=== PATIENT | female | born 1945 | race Caucasian/White ===

== ENCOUNTER → 2018-06-28 10:37 | Outpatient (CLI) | payer MEDICARE, SELFPAY ==
--- NOTE | 2018-06-28 10:46 | NVE_ITS ---
Venous Exam Indications: 729.5 Pain in limb. IMPRESSIONS 1. There is no evidence of significant Reflux. 2. No evidence of deep or superficial vein thrombosis involving the right lower extremity History: Medications: Aspirin, 81 mg PO daily. Right lower extremity venous duplex evaluation. Doppler flow study including spectral analysis, color and howe scale imaging. Location: Vascular laboratory. Patient status: Outpatient. Tables: Venous flow and imaging: + +-------+ + Location Overall Flow properties + +-------+ + Right common femoral Patent Normal phasicity; spontaneous; normal augmentation; compressible + +-------+ + Right saphenofemoral junction Patent Compressible + +-------+ + Right profunda femoral Patent Compressible + +-------+ + Right femoral Patent Normal phasicity; spontaneous; normal augmentation; compressible + +-------+ + Right greater saphenous Patent Normal phasicity; spontaneous; normal augmentation; compressible + +-------+ + Right popliteal Patent Normal phasicity; spontaneous; normal augmentation; compressible + +-------+ + Right posterior tibial Patent Compressible + +-------+ + Right peroneal Patent Compressible + +-------+ + Right gastrocnemius Patent Compressible + +-------+ + Right soleal Patent Compressible + +-------+ + (Report amended ) Electronically signed by: Manuel Nice [id number]
== END ==
PROVIDERS: PCP Internal Medicine; Visit Provider Internal Medicine
DX: R60.1 Generalized edema (principal); M79.604 Pain in right leg
CPT/HCPCS: 93971

== ENCOUNTER → 2018-07-12 10:56 | Outpatient (CLI) | payer MEDICARE, SELFPAY ==
--- NOTE | 2018-07-12 11:01 | NVE_ITS ---
Venous Exam Indications: 729.5 Pain in limb. 729.81 Swelling of limb. IMPRESSIONS 1. There is no evidence of significant Reflux. 2. No evidence of deep or superficial vein thrombosis involving the right lower extremity 3. No evidence of deep or superficial vein thrombosis involving the left lower extremity Complete lower extremity venous duplex evaluation. Doppler flow study including spectral analysis, color and howe scale imaging. Location: Vascular laboratory. Patient status: Outpatient. CRITICAL FINDINGS - Reported to: PETER - Read back and verified. - 07/12/18 - 1130 - NONE Tables: Venous flow and imaging: + +-------+ + Location Overall Flow properties + +-------+ + Right common femoral Patent Normal phasicity; spontaneous; normal augmentation; compressible + +-------+ + Right saphenofemoral junction Patent Compressible + +-------+ + Right profunda femoral Patent Compressible + +-------+ + Right femoral Patent Normal phasicity; spontaneous; normal augmentation; compressible; no reflux + +-------+ + Right greater saphenous Patent Normal phasicity; spontaneous; normal augmentation; compressible + +-------+ + Right popliteal Patent Normal phasicity; spontaneous; normal augmentation; compressible + +-------+ + Right posterior tibial Patent Compressible + +-------+ + Right peroneal Patent Compressible + +-------+ + Right gastrocnemius Patent Compressible + +-------+ + Right soleal Patent Compressible + +-------+ + Left common femoral Patent Normal phasicity; spontaneous; normal augmentation; compressible + +-------+ + Left saphenofemoral junction Patent Compressible + +-------+ + Left profunda femoral Patent Compressible + +-------+ + Left femoral Patent Normal phasicity; spontaneous; normal augmentation; compressible + +-------+ + Left greater saphenous Patent Normal phasicity; spontaneous; normal augmenta
== END ==
PROVIDERS: PCP Internal Medicine; Visit Provider Internal Medicine
DX: M79.604 Pain in right leg (principal); M79.89 Other specified soft tissue disorders; M79.605 Pain in left leg
CPT/HCPCS: 93970

== ENCOUNTER 2018-09-30 12:03 | Observation (INO) | payer MEDICARE, SELFPAY ==
[2018-09-30] VITALS (13 sets, daily range): BP systolic 104–156; BP diastolic 49–88; PULSE 53–113; RESP 15–22; TEMP 36.5–36.9; O2SAT 92–98; BMI 41.2
--- NOTE | 2018-09-30 12:42 | XR_ITS ---
XR chest portable HISTORY: Chest pain and pressure with irregular heartbeat, previous smoker ITS.REASON: chest pain ORDERING PHYSICIAN: Topher Jackson MD PATIENT AGE: 73 years COMPARISON: None FINDINGS: Unremarkable cardiovascular structures. There is COPD. Increased density is present in the left lung base laterally possibly due to pericardial fat pad. Cannot exclude underlying pleural or parenchymal pathology. Upright PA and lateral chest may be of further value. No acute bony findings IMPRESSION: COPD with patchy density in the left lung base which could be due to summation artifact versus pleural or parenchymal opacification
--- NOTE | 2018-09-30 12:48 | PC.NURSE ---
1248-gave pt 5mg cardizem hr 112 94% RA 13 RR and 157/82 1251-gave pt 5mg cardizem hr 110 94% RA 17 RR 164/90 1253-gave pt 5mg cardizem hr 135 95% RA 17 RR 131/101
--- NOTE | 2018-09-30 12:49 | HMH.EDGENADL ---
ED Disposition Clinical Impression: Paroxysmal SVT (supraventricular tachycardia) Disposition: Admitted as Observation Condition on Discharge: Good Referrals: Fortino Jackson [Primary Care Provider] - Time of Disposition: 14:43 - Critical Care Critical Care Time: No Attestation: On 09/30/18, the high probability of a clinically significant, sudden or life threatening deterioration of the following system(s) required my full and direct attention, intervention and personal management. The time I documented below is in addition to time spent performing reported procedures but includes the following listed in this critical care notation. Medical Decision Making - Medical Records Medical records reviewed: Yes: I reviewed the patient's medical records. - Konrad Inquiry Pt receiving controlled substance: No Konrad was queried for this patient: No Vital Signs: 09/30/18 12:05 09/30/18 13:15 09/30/18 13:30 Temperature 98.5 F Temperature Source Oral Pulse Rate [Right Brachial] 113 H 81 75 Respiratory Rate 20 15 20 Blood Pressure [Right Arm] 156/88 H 131/69 134/59 L Blood Pressure Mean [Right Arm] 110 89 84 Blood Pressure Source [Right Arm] Automatic Cuff Blood Pressure Position [Right Arm] Sitting 02 Sat by Pulse Oximetry 95 95 92 L Oxygen Delivery Method Room Air Room Air Room Air 09/30/18 13:53 09/30/18 14:00 Temperature Temperature Source Pulse Rate [Right Brachial] 71 61 Respiratory Rate 20 20 Blood Pressure [Right Arm] 115/63 128/64 Blood Pressure Mean [Right Arm] 80 85 Blood Pressure Source [Right Arm] Automatic Cuff Blood Pressure Position [Right Arm] Sitting 02 Sat by Pulse Oximetry 93 L 93 L Oxygen Delivery Method Room Air Room Air - Lab Data Lab Results 09/30/18 12:20: WBC 7.6, RBC 4.57, Hgb 14.6, Hct 42.8, MCV 93.8, MCH 31.9 H, MCHC 34.0, RDW 12.9, Plt Count 236, MPV 6.8 L, Neut % (Auto) 61.0, Lymph % (Auto) 28.9, [place] % (Auto) 6.0, Eos % (Auto) 3.2, Baso % (Auto) 1.0, Neut # (Auto) 4.6, Lymph # (Auto) 2.2, [place] # (Auto) 0.5, Eos # (Auto) 0.2, Baso # (Auto) 0.1 09/30/18 12:20: Sodium 142, Potassium 3.2 L, Chloride 103, Carbon Dioxide 33 H, Anion Gap 9.2, BUN 19 H, Creatinine 1.22 H, Estimated Creat Clear 60, Estimated GFR 43 L, Est GFR ( Amer) 52 L, Glucose 109 H, Calcium 9.3, Total Bilirubin 0.4, AST 14 L, ALT 19, Alkaline Phosphatase 86, Troponin I < 0.02, Total Protein 7.5, Albumin 3.4, Globulin 4.1 H, Albumin/Globulin Ratio 0.8 L, TSH 1.02 Result diagrams: 09/30/18 12:20 09/30/18 12:20 Orders (Tests/Meds): ED MEDICATIONS Generic Name Dose Route Start Last Admin Trade Name Freq PRN Reason Stop Dose Admin Fentanyl Citrate 25 mcg 09/30/18 14:38 Fentanyl 250mcg/5ml Vial IV 10/01/18 14:38 Q3MINP PRN Moderate to Severe Pain Fentanyl Citrate 50 mcg 09/30/18 14:38 Fentanyl 250mcg/5ml Vial IV 10/01/18 14:38 Q3MINP PRN Moderate to Severe Pain Flumazenil 0.2 mg 09/30/18 14:38 Romazicon 0.1mg/Ml 5ml Vial IV 09/30/18 23:00 NEEDED PRN Sedation Diltiazem HCl 125 mg/ Sodium 125 mls @ 5 mls/hr 09/30/18 13:00 09/30/18 13:21 Chloride IV 10/30/18 12:59 5 mls/hr .Q25H YANCI Administration Protocol 5 MG/HR Midazolam HCl 1 mg 09/30/18 14:38 Midazolam 2mg/2ml Vial IV 10/01/18 14:38 Q3MINP PRN Sedation Midazolam HCl 1 mg 09/30/18 14:38 Midazolam 1mg/Ml 5ml Vial IV 10/01/18 14:38 Q3MINP PRN Sedation Naloxone HCl 0.4 mg 09/30/18 14:38 Narcan 0.4mg/Ml Vial IV 10/01/18 14:38 Q5MINP PRN Decreased respirations Potassium Chloride 40 meq 09/30/18 15:00 Klor-Con 20meq Tablet PO 10/30/18 14:59 BID YANCI Sodium Chloride 10 ml 09/30/18 14:38 Saline Flush 10ml Syringe
--- NOTE | 2018-09-30 12:53 | ED_ITS ---
ED Disposition Clinical Impression: Paroxysmal SVT (supraventricular tachycardia) Disposition: Admitted as Observation Condition on Discharge: Good Referrals: Fortino Jackson [Primary Care Provider] - Time of Disposition: 14:43 - Critical Care Critical Care Time: No Attestation: On 09/30/18, the high probability of a clinically significant, sudden or life threatening deterioration of the following system(s) required my full and direct attention, intervention and personal management. The time I documented below is in addition to time spent performing reported procedures but includes the following listed in this critical care notation. Medical Decision Making - Medical Records Medical records reviewed: Yes: I reviewed the patient's medical records. - Kornad Inquiry Pt receiving controlled substance: No Konrad was queried for this patient: No Vital Signs: 09/30/18 12:05 09/30/18 13:15 09/30/18 13:30 Temperature 98.5 F Temperature Source Oral Pulse Rate [Right Brachial] 113 H 81 75 Respiratory Rate 20 15 20 Blood Pressure [Right Arm] 156/88 H 131/69 134/59 L Blood Pressure Mean [Right Arm] 110 89 84 Blood Pressure Source [Right Arm] Automatic Cuff Blood Pressure Position [Right Arm] Sitting 02 Sat by Pulse Oximetry 95 95 92 L Oxygen Delivery Method Room Air Room Air Room Air 09/30/18 13:53 09/30/18 14:00 Temperature Temperature Source Pulse Rate [Right Brachial] 71 61 Respiratory Rate 20 20 Blood Pressure [Right Arm] 115/63 128/64 Blood Pressure Mean [Right Arm] 80 85 Blood Pressure Source [Right Arm] Automatic Cuff Blood Pressure Position [Right Arm] Sitting 02 Sat by Pulse Oximetry 93 L 93 L Oxygen Delivery Method Room Air Room Air - Lab Data Lab Results 09/30/18 12:20: WBC 7.6, RBC 4.57, Hgb 14.6, Hct 42.8, MCV 93.8, MCH 31.9 H, MCHC 34.0, RDW 12.9, Plt Count 236, MPV 6.8 L, Neut % (Auto) 61.0, Lymph % (Auto) 28.9, [place] % (Auto) 6.0, Eos % (Auto) 3.2, Baso % (Auto) 1.0, Neut # (Auto) 4.6, Lymph # (Auto) 2.2, [place] # (Auto) 0.5, Eos # (Auto) 0.2, Baso # (Auto) 0.1 09/30/18 12:20: Sodium 142, Potassium 3.2 L, Chloride 103, Carbon Dioxide 33 H, Anion Gap 9.2, BUN 19 H, Creatinine 1.22 H, Estimated Creat Clear 60, Estimated GFR 43 L, Est GFR ( Amer) 52 L, Glucose 109 H, Calcium 9.3, Total Bilirubin 0.4, AST 14 L, ALT 19, Alkaline Phosphatase 86, Troponin I < 0.02, Total Protein 7.5, Albumin 3.4, Globulin 4.1 H, Albumin/Globulin Ratio 0.8 L, TSH 1.02 Result diagrams: 09/30/18 12:20 09/30/18 12:20 Orders (Tests/Meds): ED MEDICATIONS Generic Name Dose Route Start Last Admin Trade Name Freq PRN Reason Stop Dose Admin Fentanyl Citrate 25 mcg 09/30/18 14:38 Fentanyl 250mcg/5ml Vial IV 10/01/18 14:38 Q3MINP PRN Moderate to Severe Pain Fentanyl Citrate 50 mcg 09/30/18 14:38 Fentanyl 250mcg/5ml Vial IV 10/01/18 14:38 Q3MINP PRN Moderate to Severe Pain Flumazenil 0.2 mg 09/30/18 14:38 Romazicon 0.1mg/Ml 5ml Vial IV 09/30/18 23:00
[2018-09-30 13:01] LABS: Basophils # 0.1 K/mm3 (0-0.2); Eosinophils # 0.2 K/mm3 (0.0-0.4); Eosinophils % 3.2 % (0.1-12.0); Hematocrit 42.8 % (37.0-47.0); Hemoglobin 14.6 g/dL (12.2-16.2); Lymphocytes # 2.2 K/mm3 (0.7-4.5); Lymphocytes % 28.9 % (10-50); Mean Corpuscular Hemoglobin 31.9 pg (27.0-31.2); Mean Corpuscular Volume 93.8 fl (81-99); Mean Platelet Volume 6.8 fl (7.4-10.4); Monocytes # 0.5 K/mm3 (0.1-1.0); Neutrophils # 4.6 K/mm3 (1.8-7.8); Platelet Count 236 K/mm3 (142-424); Red Blood Count 4.57 M/mm3 (4.20-5.40); Red Cell Distribution Width 12.9 % (11.5-17.5); White Blood Count 7.6 K/mm3 (4.8-10.8)
--- NOTE | 2018-09-30 13:21 | PC.NURSE ---
132jerod spoke with sheri jones cardiology.
[2018-09-30 13:26] LABS: Alanine Aminotransferase 19 U/L (12-78); Albumin Level 3.4 gm/dL (3.4-5.0); Albumin/Globulin Ratio 0.8 (1.1-1.8); Alkaline Phosphatase 86 U/L (46-116); Anion Gap 9.2 mEq/L (5-15); Aspartate Amino Transferase 14 U/L (15-37); Bilirubin,Total 0.4 mg/dL (0.2-1.0); Blood Urea Nitrogen 19 mg/dL (7-18); Calcium 9.3 mg/dL (8.5-10.1); Carbon Dioxide 33 mmol/L (21.0-32.0); Chloride 103 mmol/L (98-107); Creatinine Clearance Estimated 60 mL/min (50-200); Creatinine,Serum 1.22 mg/dL (0.55-1.02); Estimated Glomerular Filt Rate 43 ml/min (>60); GFR (African American) 52 ML/MIN (>60); Globulin 4.1 gm/dl (1.3-3.2); Glucose 109 mg/dL (74-106); Potassium 3.2 mmoL/L (3.5-5.1); Sodium 142 mmol/L (136-145); Thyroid Stimulating Hormone 1.02 uIU/ml (0.358-3.740); Total Protein,Serum 7.5 gm/dL (6.4-8.2); Troponin I < 0.02 ng/ml (0.00-0.06)
--- NOTE | 2018-09-30 13:57 | PC.NURSE ---
1355-tabitha wade at pt bedside.
--- NOTE | 2018-09-30 14:11 | HMH.CNCARD ---
History of Present Illness Consult date: 09/30/18 Chief complaint: Lightheadedness, palpitations Additional Medical History:: 1. Tobacco use starting age 16 and stopped approximately age 60, smoked 3-4 packs/day A. COPD 2. Hypertension 3. Hyperlipidemia 4. Family history of coronary artery disease in her father with heart attack at age 48 5. Remote history of DVT of the right lower extremity 6. CKD stage 3 with Cr 1.2 and GFR 43 History of present illness: 73-year-old white female came to the emergency department for complaint of slow heart rate in the 40s this a.m while in bed. Further questioning reveals episodes of chest pressure and lightheadedness for the last couple of weeks. Patient denies chest pain or syncope. She also notes occasions of tachycardia which telemetry revealed during ER visit today to be episodes of SVT. Patient was started on IV Cardizem with regulation of the SVT and no recurrence of significant bradycardia. Initial troponin normal. TSH noted to be normal. Cardiology consulted for evaluation recommendations. EKGs show sinus rhythm with left axis deviation and pulmonary disease pattern. No acute ST segment changes noted. Patient relates a remote history of stress approximately 10 years ago with no need for intervention at the time. She denies any history of diabetes. She was not on any rate controlling medications (calcium channel blockers or beta blockers) prior to this ER visit. [facility] History Medical History: Denies:: Cancer, Diabetes Mellitus Type 1, Diabetes Mellitus Type 2, Internal Pacemaker, MRSA *Have you ever received a pneumonia vaccine?: No *Have you received a flu vaccine this season?: Yes Other Surgeries: No: Pacemaker Amputation: No Fractures: No - *Social History Educational Level: Attended High School Smoking Status: Former smoker Tobacco Type: cigarettes Alcohol Intake: never *Occupational Status:: unemployed Household Members: children *Travel in the last 8 weeks: None - Psychiatric History Expresses thoughts of harming self/others: None Suicide Plan Description: No Plan Pschychiatric History:: Denies:: Anxiety, Attention Deficit Disorder, Bipolar Disorder, Depression, Eating Disorder, Post Traumatic Stress Disorder, Suicide Attempt, Psychiatric Treatment, Schizophrenia Family Hx:: Coronary Artery Disease Meds Home Medications Medication Instructions Recorded Confirmed Type Albuterol Sulfate [Albuterol HFA 1 puff IH Q4HP PRN 09/30/18 09/30/18 History Inhaler] Aspirin 81 mg PO DAILY 09/30/18 09/30/18 History Furosemide [Furosemide 40MG tAB] 40 mg PO DAILY 09/30/18 09/30/18 History Losartan Potassium 100 mg PO DAILY 09/30/18 09/30/18 History Potassium Chloride [Klor-con 20 20 meq PO DAILY 09/30/18 09/30/18 History mEq tablet] hydroCHLOROthiazide [HCTZ 25mg 25 mg PO DAILY 09/30/18 09/30/18 History tab] Allergies Allergy/AdvReac Type Severity Reaction Status Date / Time Penicillins Allergy Verified 09/30/18 12:59 Sulfa (Sulfonamide Allergy Verified 09/30/18 12:59 Antibiotics) Review of Systems - *Cardiovascular Reports chest pain, Reports chest pain at rest, Reports shortness of breath - *Respiratory Reports shortness of breath - *Gastrointestinal Denies abdominal pain, Denies loose stools - *Genitourinary Denies blood in urine - *Musculoskeletal Denies joint pain, Denies back pain - *Neurologic Denies fainting, Denies tingling, Denies tremor(s) Exam Vital signs and Labs for Last 24 Hours: Temp Pulse Resp BP Pulse Ox 98.5 F 61 20 128/64 93 L 09/30/18 12:05 09/30/18 14:00 09/30/18 14:00 09/30/18 14:00 09/30/18 14:00 Laboratory Results - last 24 hr 09/30/18 12:20: WBC 7.6, RBC 4.57, Hgb 14.6, Hct 42.8, MCV 93.8, MCH 31.9 H, MCHC 34.0, RDW 12.9, Plt Count 236, MPV 6.8 L, Neut % (Auto) 61.0, Lymph % (Auto) 28.9, [place] % (Auto) 6.0, Eos % (Auto) 3.2, Baso % (Auto) 1.0, Neut # (Auto)
--- NOTE | 2018-09-30 14:17 | P.CONS_ITS ---
History of Present Illness Consult date: 09/30/18 Chief complaint: Lightheadedness, palpitations Additional Medical History:: 1. Tobacco use starting age 16 and stopped approximately age 60, smoked 3-4 packs/day A. COPD 2. Hypertension 3. Hyperlipidemia 4. Family history of coronary artery disease in her father with heart attack at age 48 5. Remote history of DVT of the right lower extremity 6. CKD stage 3 with Cr 1.2 and GFR 43 History of present illness: 73-year-old white female came to the emergency department for complaint of slow heart rate in the 40s this a.m while in bed. Further questioning reveals episodes of chest pressure and lightheadedness for the last couple of weeks. Patient denies chest pain or syncope. She also notes occasions of tachycardia which telemetry revealed during ER visit today to be episodes of SVT. Patient was started on IV Cardizem with regulation of the SVT and no recurrence of significant bradycardia. Initial troponin normal. TSH noted to be normal. Cardiology consulted for evaluation recommendations. EKGs show sinus rhythm with left axis deviation and pulmonary disease pattern. No acute ST segment changes noted. Patient relates a remote history of stress approximately 10 years ago with no need for intervention at the time. She denies any history of diabetes. She was not on any rate controlling medications (calcium channel blockers or beta blockers) prior to this ER visit. [facility] History Medical History: Denies:: Cancer, Diabetes Mellitus Type 1, Diabetes Mellitus Type 2, Internal Pacemaker, MRSA *Have you ever received a pneumonia vaccine?: No *Have you received a flu vaccine this season?: Yes Other Surgeries: No: Pacemaker Amputation: No Fractures: No - *Social History Educational Level: Attended High School Smoking Status: Former smoker Tobacco Type: cigarettes Alcohol Intake: never *Occupational Status:: unemployed Household Members: children *Travel in the last 8 weeks: None - Psychiatric History Expresses thoughts of harming self/others: None Suicide Plan Description: No Plan Pschychiatric History:: Denies:: Anxiety, Attention Deficit Disorder, Bipolar Disorder, Depression, Eating Disorder, Post Traumatic Stress Disorder, Suicide Attempt, Psychiatric Treatment, Schizophrenia Family Hx:: Coronary Artery Disease Meds Home Medications Medication Instructions Recorded Confirmed Type Albuterol Sulfate [Albuterol HFA 1 puff IH Q4HP PRN 09/30/18 09/30/18 History Inhaler] Aspirin 81 mg PO DAILY 09/30/18 09/30/18 History Furosemide [Furosemide 40MG tAB] 40 mg PO DAILY 09/30/18 09/30/18 History Losartan Potassium 100 mg PO DAILY 09/30/18 09/30/18 History Potassium Chloride [Klor-con 20 20 meq PO DAILY 09/30/18 09/30/18 History mEq tablet] hydroCHLOROthiazide [HCTZ 25mg 25 mg PO DAILY 09/30/18 09/30/18 History tab] Allergies Allergy/AdvReac Type Severity Reaction Status Date / Time Penicillins Allergy Verified 09/30/18 12:59 Sulfa (Sulfonamide Allergy Verified 09/30/18 12:59 Antibiotics) Review of Systems - *Cardiovascular Reports chest pain, Reports chest pain at rest, Reports shortness of breath - *Respiratory Reports shortness of breath - *Gastrointestinal Denies abdominal pain, Denies loose stools - *Genitourinary Denies blood in urine
--- NOTE | 2018-09-30 14:31 | CA_ITS ---
PROCEDURE: 2-D M-mode and color Doppler study INDICATIONS FOR THE TEST: Chest pain X COPD Heart Murmur Tobacco SmokingEX Palpitations Fatigue Syncope Edema HypertensionXDiabetes Mellitus Rheumatic Fever SOB IVERSON ObesityXHyperlipidemiaX Family History HDX Additional History SVT PATIENT INFORMATION HEIGHT: 59 WEIGHT:204 GENDER: Female B/P:128/64 2-D/M-MODE INTERPRETATION: 2-D MEASUREMENTS OBSERVED VALUES IN CMS Right Ventricular Dimension (RVDd) 2.2 Interventricular Septum (Thickness)(IVsd) .7 Left Ventricular Internal Dimensions(LVIDd) 5.6 Left Ventricular Posterior Wall (Thickness)(LVPWd) 1.0 Aortic Root 3.6 Aortic Cusp Separation 1.9 Left Atrial Dimensions (LAD) 2.5 2D 1. Technically difficult study because of the patient's factor and poor acoustic windows. 2. Left atrium is mildly enlarged, left ventricle is normal size, mild concentric left ventricular hypertrophy, visually estimated ejection fraction 50%, there appears to be mild hypokinesis involving the inferior wall. 3. The right atrium and right ventricle are mildly enlarged with normal contractility. 4. The aortic valve is thickened and calcified leaflet continue to display mobility. 5. The mitral and tricuspid valve leaflets are minimally thickened. 6. The pulmonic valve is poorly visualized. 7. No significant pericardial effusion noted. DOPPLER INTERROGATION: Doppler interrogation of the aortic, mitral and tricuspid valvular presence of mild mitral and tricuspid regurgitation, tricuspid regurgitation jet velocity is inadequate for calculation of the right ventricular systolic pressure, grade 1 diastolic dysfunction seen with tissue Doppler evidence of raised left atrial pressure. CONCLUSION: 1. Technically difficult study because of the patient's factors and poor acoustic windows 2. Mild biatrial enlargement, normal left ventricular size, mild concentric left ventricular hypertrophy, visually estimated ejection fraction 50%, there appears to be mild inferior wall hypokinesis. 3. Mildly enlarged right ventricle with normal contractility. 4. Mild mitral and tricuspid regurgitation. 5. Grade 1 diastolic dysfunction seen with tissue Doppler evidence of raised left atrial pressure. 6. No significant pericardial effusion noted.
[2018-09-30 14:43] LABS: Magnesium 1.5 mg/dL (1.4-2.2)
--- NOTE | 2018-09-30 14:57 | PC.NURSE ---
1456-spoke with erik nathan care management stated pt would be acute.
--- NOTE | 2018-09-30 14:57 | PC.NURSE ---
1442- on phone with avila guerra to admit pt.
--- NOTE | 2018-09-30 14:59 | PC.NURSE ---
called HS for bed, states pt will go to room 216
--- NOTE | 2018-09-30 15:32 | HMH.PHAINT ---
POTASSIUM--VERIFIED WITH DR. STARKEY, POTASSIUM DOSE NEEDS TO BE 40 MEQ BID ONLY.
--- NOTE | 2018-09-30 16:12 | HMH.HP ---
*Admission Date: 09/30/18 *Chief complaint: bradycardia, dizziness *History of present illness: 73-year-old white female came to the emergency department for complaint of slow heart rate in the 40s this a.m while in bed. Further questioning reveals episodes of chest pressure and lightheadedness for the last couple of weeks. Patient denies chest pain or syncope. She also notes occasions of tachycardia which telemetry revealed during ER visit today to be episodes of SVT. Patient was started on IV Cardizem with regulation of the SVT and no recurrence of significant bradycardia. Initial troponin normal. TSH noted to be normal. Cardiology consulted for evaluation recommendations. EKGs show sinus rhythm with left axis deviation and pulmonary disease pattern. No acute ST segment changes noted. Patient relates a remote history of stress approximately 10 years ago with no need for intervention at the time. She denies any history of diabetes. She was not on any rate controlling medications (calcium channel blockers or beta blockers) prior to this ER visit. Above per Cardiology TONO Cho, greatly appreciated. [facility] History I have reviewed the patient's past medical history: Yes Medical History: Reports:: Hypertension Denies:: Anxiety, Cancer, Depression, Diabetes Mellitus Type 1, Diabetes Mellitus Type 2, Internal Pacemaker, MRSA *Have you ever received a pneumonia vaccine?: No (Refused) *Have you received a flu vaccine this season?: Yes Other Medical History: Reports: Arthritis (rheumatoid), Cataracts (bilat eyes), Sinus Problems Other Surgeries: Yes: Colonoscopy, , EGD, Hysterectomy-Total, Other (cysts removed from bilat feet). No: Pacemaker Amputation: No Fractures: Yes (fracture wrist) - *Social History Educational Level: Attended High School Smoking Status: Former smoker Tobacco Type: cigarettes # Packs/Day (cigarettes): 1 #Yrs smoked (if former smoker): 57 Alcohol Intake: never *Occupational Status:: retired Housing: house Household Members: none *Travel in the last 8 weeks: None - Psychiatric History Expresses thoughts of harming self/others: None Suicide Plan Description: No Plan Pschychiatric History:: Denies:: Anxiety, Attention Deficit Disorder, Bipolar Disorder, Depression, Eating Disorder, Post Traumatic Stress Disorder, Suicide Attempt, Psychiatric Treatment, Schizophrenia Family Hx:: Cancer, Coronary Artery Disease, Heart Attack, Hyperlipidemia, Hypertension, Stroke Review of Systems - Review of Systems Review of systems:: pertinent systems reviewed and negative unless documented below - *Cardiovascular Reports chest pain, Reports lightheadedness, Reports fast heart rate, Reports slow heart rate Comments: chest heaviness - *Respiratory Reports shortness of breath with activity - *Neurologic Denies fainting, Denies tingling, Denies tremor(s) Meds Home Medications Medication Instructions Recorded Confirmed Type Acetaminophen 650 mg PO BID 09/30/18 09/30/18 History Albuterol Sulfate [Albuterol HFA 1 puff IH Q4HP PRN 09/30/18 09/30/18 History Inhaler] Aspirin 81 mg PO DAILY 09/30/18 09/30/18 History Furosemide [Furosemide 40MG tAB] 40 mg PO DAILY 09/30/18 09/30/18 History Losartan Potassium 100 mg PO DAILY 09/30/18 09/30/18 History Potassium Chloride [Klor-con 20 20 meq PO DAILY 09/30/18 09/30/18 History mEq tablet] hydroCHLOROthiazide [HCTZ 25mg 25 mg PO DAILY 09/30/18 09/30/18 History tab] Allergies Allergy/AdvReac Type Severity Reaction Status Date / Time Penicillins Allergy Verified 09/30/18 12:59 Sulfa (Sulfonamide Allergy Verified 09/30/18 12:59 Antibiotics) Exam Vital signs and Labs for Last 24 Hours: Temp Pulse Resp BP Pulse Ox 97.8 F 53 L 16 148/73 H 98 09/30/18 15:39 09/30/18 15:39 09/30/18 15:39 09/30/18 15:39 09/30/18 15:39 Laboratory Results - last 24 hr 09/30/18 12:20: WBC 7.6, RBC 4.57, Hgb 14.6, Hct 42.8, MCV 93.
--- NOTE | 2018-09-30 16:17 | P.HP_ITS ---
*Admission Date: 09/30/18 *Chief complaint: bradycardia, dizziness *History of present illness: 73-year-old white female came to the emergency department for complaint of slow heart rate in the 40s this a.m while in bed. Further questioning reveals episodes of chest pressure and lightheadedness for the last couple of weeks. Patient denies chest pain or syncope. She also notes occasions of tachycardia which telemetry revealed during ER visit today to be episodes of SVT. Patient was started on IV Cardizem with regulation of the SVT and no recurrence of significant bradycardia. Initial troponin normal. TSH noted to be normal. Cardiology consulted for evaluation recommendations. EKGs show sinus rhythm with left axis deviation and pulmonary disease pattern. No acute ST segment changes noted. Patient relates a remote history of stress approximately 10 years ago with no need for intervention at the time. She denies any history of diabetes. She was not on any rate controlling medications (calcium channel blockers or beta blockers) prior to this ER visit. Above per Cardiology TONO Cho, greatly appreciated. [facility] History I have reviewed the patient's past medical history: Yes Medical History: Reports:: Hypertension Denies:: Anxiety, Cancer, Depression, Diabetes Mellitus Type 1, Diabetes Mellitus Type 2, Internal Pacemaker, MRSA *Have you ever received a pneumonia vaccine?: No (Refused) *Have you received a flu vaccine this season?: Yes Other Medical History: Reports: Arthritis (rheumatoid), Cataracts (bilat eyes), Sinus Problems Other Surgeries: Yes: Colonoscopy, , EGD, Hysterectomy-Total, Other (cysts removed from bilat feet). No: Pacemaker Amputation: No Fractures: Yes (fracture wrist) - *Social History Educational Level: Attended High School Smoking Status: Former smoker Tobacco Type: cigarettes # Packs/Day (cigarettes): 1 #Yrs smoked (if former smoker): 57 Alcohol Intake: never *Occupational Status:: retired Housing: house Household Members: none *Travel in the last 8 weeks: None - Psychiatric History Expresses thoughts of harming self/others: None Suicide Plan Description: No Plan Pschychiatric History:: Denies:: Anxiety, Attention Deficit Disorder, Bipolar Disorder, Depression, Eating Disorder, Post Traumatic Stress Disorder, Suicide Attempt, Psychiatric Treatment, Schizophrenia Family Hx:: Cancer, Coronary Artery Disease, Heart Attack, Hyperlipidemia, Hypertension, Stroke Review of Systems - Review of Systems Review of systems:: pertinent systems reviewed and negative unless documented below - *Cardiovascular Reports chest pain, Reports lightheadedness, Reports fast heart rate, Reports slow heart rate Comments: chest heaviness - *Respiratory Reports shortness of breath with activity - *Neurologic Denies fainting, Denies tingling, Denies tremor(s) Meds Home Medications Medication Instructions Recorded Confirmed Type Acetaminophen 650 mg PO BID 09/30/18 09/30/18 History Albuterol Sulfate [Albuterol HFA 1 puff IH Q4HP PRN 09/30/18 09/30/18 History Inhaler] Aspirin 81 mg PO DAILY 09/30/18 09/30/18 History Furosemide [Furosemide 40MG tAB] 40 mg PO DAILY 09/30/18 09/30/18 History Losartan Potassium 100 mg PO DAILY 09/30/18 09/30/18 History Potassium Chloride [Klor-con 20 20 meq PO DAILY 09/30/18 09/30/18 History mEq tablet] hydroCHLOROthiazide [HCTZ 25mg 25 mg PO DAILY 09/30/18 09/30/18 History tab]
--- NOTE | 2018-09-30 18:04 | PC.NURSE ---
Collaborated with Dr Rae via telephone. SULAIMAN Samuels. Request pt to transfer to acute med/surg bed with telemetry as pt has IBS with multiple BMs per day. Order received to transfer pt to acute med/surg bed.
--- NOTE | 2018-09-30 18:26 | PC.NURSE ---
PT admited from ED. Jacob alcantar D/C'ed, switched to PO Q6. Pt transfered from stepdown to acute care M/S. Resting in chair, will continue to monitor.
[2018-09-30 19:00] LABS: Troponin I < 0.02 ng/ml (0.00-0.06)
--- NOTE | 2018-09-30 19:01 | PC.NURSE ---
Report given to S Call RN
--- NOTE | 2018-09-30 20:15 | PC.NURSE ---
PT AWAKE IN BED. HR 53.
--- NOTE | 2018-09-30 20:42 | PC.NURSE ---
2015 pt is alert and talking with nurse HR 53
--- NOTE | 2018-09-30 20:45 | PC.NURSE ---
PT IN SHOWER.
--- NOTE | 2018-09-30 20:47 | PC.NURSE ---
2030 PT UP IN BR WITH NURSING STAFF .HR 53
--- NOTE | 2018-09-30 21:05 | PC.NURSE ---
2100 HR 62 SITTING UP IN CHAIR .NO C/O
--- NOTE | 2018-09-30 21:15 | PC.NURSE ---
PT AWAKE. NO COMPLAINTS REPORTED. HR 58.
--- NOTE | 2018-09-30 21:30 | PC.NURSE ---
PT AWAKE. HR 57. NO COMPLAINTS REPORTED.
[2018-09-30 21:39] LABS: Troponin I < 0.02 ng/ml (0.00-0.06)
--- NOTE | 2018-09-30 21:45 | PC.NURSE ---
HR 54. PT AWAKE.
--- NOTE | 2018-09-30 22:00 | PC.NURSE ---
PT AWAKE. HR 55. NO PAIN/DISCOMFORT REPORTED.
--- NOTE | 2018-09-30 22:15 | PC.NURSE ---
PT AWAKE IN CHAIR, WATCHING TV. STATES SHE SLEEPS IN CHAIR AT HOME. NO COMPLAINTS. HR 55.
--- NOTE | 2018-09-30 22:30 | PC.NURSE ---
PT AWAKE IN CHAIR, WATCHING TV WITH DAUGHTER. NO COMPLAINTS. HR 60.
--- NOTE | 2018-09-30 22:45 | PC.NURSE ---
PT AWAKE IN CHAIR. NO COMPLAINTS. HR 58.
[2018-10-01] VITALS (16 sets, daily range): BP systolic 88–123; BP diastolic 38–78; PULSE 50–83; RESP 16–20; TEMP 36.4–36.8; O2SAT 90–100
--- NOTE | 2018-10-01 | IR_ITS ---
CARDIAC CATHETERIZATION DATE OF CATHETERIZATION:10/01/2018 12:17 PM PROCEDURES: 1. Left heart catheterization 2. Left ventriculogram 3. Selective coronary angiogram INDICATION FOR TEST: 1. Unstable angina Informed consent was obtained prior to the procedure. COMPLICATIONS: None ESTIMATED BLOOD LOSS: Less than 10 ml. TECHNIQUE: One percent lidocaine used to anesthetize the right anterior aspect of the wrist. The right radial artery was accessed via the Seldinger technique. A 6 Macedonian sheath was placed in the right radial artery. 2.5 mg of verapamil, 800 mcg of nitroglycerin, 1mg Lidocaine and 5000 U Heparin were given through the arterial sheath. The trap catheter was also used to perform left heart catheterization, left ventriculogram and selective coronary angiogram. At the end of the procedure the sheath was removed good hemostasis was achieved using Traclet band, patient was transferred to the postop holding area in stable condition . ANGIOGRAPHIC RESULTS: 1. The left main artery normal 2. The left anterior descending artery has proximal 10% stenoses 3. The circumflex artery nondominant yet still large with a mild proximal 10% stenosis 4. The right coronary artery is a dominant vessel with mild 10% mid vessel stenoses 5. The MARTÍNEZ ventriculogram reveals hyperdynamic 75% 6. The left ventricular end-diastolic pressure 20 mmHg IMPRESSION: 1. Mild nonflow limiting coronary disease 2. Hyperdynamic ventricle consistent with diastolic dysfunction and or hypertensive heart disease 3. Elevated LVEDP consistent with diastolic dysfunction and or hypertensive heart disease PLAN: 1. Medical management for coronary disease 2. Treatment of hypertension for diastolic dysfunction 3. Standard therapy for paroxysmal atrial fibrillation
--- NOTE | 2018-10-01 02:10 | PC.NURSE ---
She is currently NPO for a heart cath. She denies any SOA, dizziness, weakness, chest pain, or chest pressure. She states her appetite is normal and states he last BM was on 09/30. She states it is normal for her to have 5-6 stools a day r/t IBS. She has been awake sitting in the chair and is currently sleeping in the chair. She refuses TEDS.
[2018-10-01 06:37] LABS: Basophils % 0.4 % (0.1-2.0); Eosinophils # 0.2 K/mm3 (0.0-0.4); Hematocrit 39.5 % (37.0-47.0); Lymphocytes # 1.7 K/mm3 (0.7-4.5); Lymphocytes % 25.7 % (10-50); Mean Corpuscular HGB Conc 32.6 g/dL (31.8-35.4); Mean Corpuscular Hemoglobin 30.6 pg (27.0-31.2); Mean Platelet Volume 6.7 fl (7.4-10.4); Monocytes # 0.4 K/mm3 (0.1-1.0); Monocytes % 6.7 % (1.7-9.3); Neutrophils # 4.2 K/mm3 (1.8-7.8); Neutrophils % 64.3 % (37.0-80.0); Platelet Count 221 K/mm3 (142-424); Red Cell Distribution Width 12.9 % (11.5-17.5); White Blood Count 6.5 K/mm3 (4.8-10.8)
[2018-10-01 06:40] LABS: Anion Gap 12.4 mEq/L (5-15); Blood Urea Nitrogen 21 mg/dL (7-18); Calcium 8.9 mg/dL (8.5-10.1); Carbon Dioxide 31 mmol/L (21.0-32.0); Chloride 102 mmol/L (98-107); Creatinine Clearance Estimated 65 mL/min (50-200); Creatinine,Serum 1.12 mg/dL (0.55-1.02); Estimated Glomerular Filt Rate 48 ml/min (>60); GFR (African American) 58 ML/MIN (>60); Glucose 98 mg/dL (74-106); Potassium 3.4 mmoL/L (3.5-5.1); Sodium 142 mmol/L (136-145)
--- NOTE | 2018-10-01 07:12 | PC.NURSE ---
Report given to Sugar Sosa RN.
--- NOTE | 2018-10-01 07:25 | HMH.ACPN2 ---
Internal Medicine - PN: Subj *Date: 10/01/18 *Time: 07:25 Interval history: Patient did well overnight with no further episodes of SVT. Heart rate controlled with oral diltiazem 30 mg every 6 hrs. Remains afebrile, hemodynamically stable. Cardiology still planning to take patient for heart cath today to look for underlying pathology that may be affecting her arrhythmia. Exam Vital signs and Labs for Last 24 Hours: Temp Pulse Resp BP Pulse Ox 97.5 F L 70 18 121/56 L 93 L 10/01/18 04:00 10/01/18 04:00 10/01/18 04:00 10/01/18 04:00 10/01/18 04:00 Laboratory Results - last 24 hr 09/30/18 12:20: WBC 7.6, RBC 4.57, Hgb 14.6, Hct 42.8, MCV 93.8, MCH 31.9 H, MCHC 34.0, RDW 12.9, Plt Count 236, MPV 6.8 L, Neut % (Auto) 61.0, Lymph % (Auto) 28.9, [place] % (Auto) 6.0, Eos % (Auto) 3.2, Baso % (Auto) 1.0, Neut # (Auto) 4.6, Lymph # (Auto) 2.2, [place] # (Auto) 0.5, Eos # (Auto) 0.2, Baso # (Auto) 0.1 09/30/18 12:20: Sodium 142, Potassium 3.2 L, Chloride 103, Carbon Dioxide 33 H, Anion Gap 9.2, BUN 19 H, Creatinine 1.22 H, Estimated Creat Clear 60, Estimated GFR 43 L, Est GFR ( Amer) 52 L, Glucose 109 H, Calcium 9.3, Total Bilirubin 0.4, AST 14 L, ALT 19, Alkaline Phosphatase 86, Troponin I < 0.02, Total Protein 7.5, Albumin 3.4, Globulin 4.1 H, Albumin/Globulin Ratio 0.8 L, TSH 1.02 09/30/18 12:20: Magnesium 1.5 09/30/18 18:14: Troponin I < 0.02 09/30/18 21:09: Troponin I < 0.02 10/01/18 05:20: WBC 6.5, RBC 4.20, Hgb 13.0 D, Hct 39.5, MCV 94.0, MCH 30.6, MCHC 32.6, RDW 12.9, Plt Count 221, MPV 6.7 L, Neut % (Auto) 64.3, Lymph % (Auto) 25.7, [place] % (Auto) 6.7, Eos % (Auto) 3.0, Baso % (Auto) 0.4, Neut # (Auto) 4.2, Lymph # (Auto) 1.7, Ness # (Auto) 0.4, Eos # (Auto) 0.2, Baso # (Auto) 0.0 10/01/18 05:20: Sodium 142, Potassium 3.4 L, Chloride 102, Carbon Dioxide 31, Anion Gap 12.4, BUN 21 H, Creatinine 1.12 H, Estimated Creat Clear 65, Estimated GFR 48 L, Est GFR ( Amer) 58 L, Glucose 98, Calcium 8.9 I & O for Last 24 hours: Intake & Output 09/28/18 09/29/18 09/30/18 10/01/18 23:59 23:59 23:59 23:59 Intake Total 380 / 380 Output Total 200 / 200 Balance 180 / 180 10 / 10 Weight 92.578 kg Narrative: Alert and oriented x3 Rate and rhythm regular, Bradycardia, No murmur Lung sounds clear and equal. No JVD. No LE edema. No carotid bruits Abdomen soft and nontender. ENT exam unremarkable. Skin pink, warm and dry. No neuro deficits. Assessment and Plan (1) Paroxysmal SVT (supraventricular tachycardia) Current visit: Yes Status: Acute Category: Medical Code(s): I47.1 - Supraventricular tachycardia (2) Hypertension Current visit: Yes Status: Acute Category: Medical Code(s): I10 - Essential (primary) hypertension (3) Chest pressure Current visit: Yes Status: Acute Category: Medical Code(s): R07.89 - Other chest pain (4) Lightheadedness Current visit: Yes Status: Acute Category: Medical Code(s): R42 - Dizziness and giddiness (5) COPD (chronic obstructive pulmonary disease) Current visit: Yes Status: Acute Category: Medical Code(s): J44.9 - Chronic obstructive pulmonary disease, unspecified (6) Ex-smoker for more than 1 year Current visit: Yes Status: Acute Category: Social Hx Code(s): Z87.891 - Personal history of nicotine dependence (7) Hyperlipidemia Current visit: Yes Status: Acute Category: Medical Code(s): E78.5 - Hyperlipidemia, unspecified (8) Morbid obesity with BMI of 40.0-44.9, adult Current visit: Yes Status: Acute Category: Medical Code(s): E66.01 - Morbid (severe) obesity due to excess calories; Z68.41 - Body mass index (BMI) 40.0-44.9, adult (9) CKD (chronic kidney disease) stage 3, GFR 30-59 ml/min Current visit: Yes Status: Acute Category: Medical Code(s): N18.3 - Chronic kidney disease, stage 3 (moderate) (10) Hypokalemia Current visit: Yes Status: Acute Category: Medical Code(s): E8
--- NOTE | 2018-10-01 07:28 | P.PN_ITS ---
Internal Medicine - PN: Subj *Date: 10/01/18 *Time: 07:25 Interval history: Patient did well overnight with no further episodes of SVT. Heart rate controlled with oral diltiazem 30 mg every 6 hrs. Remains afebrile, hemodynamically stable. Cardiology still planning to take patient for heart c ath today to look for underlying pathology that may be affecting her arrhythmia. Exam Vital signs and Labs for Last 24 Hours: Temp Pulse Resp BP Pulse Ox 97.5 F L 70 18 121/56 L 93 L 10/01/18 04:00 10/01/18 04:00 10/01/18 04:00 10/01/18 04:00 10/01/18 04:00 Laboratory Results - last 24 hr 09/30/18 12:20: WBC 7.6, RBC 4.57, Hgb 14.6, Hct 42.8, MCV 93.8, MCH 31.9 H, MCHC 34.0, RDW 12.9, Plt Count 236, MPV 6.8 L, Neut % (Auto) 61.0, Lymph % (Auto) 28.9, [place] % (Auto) 6.0, Eos % (Auto) 3.2, Baso % (Auto) 1.0, Neut # (Auto) 4.6, Lymph # (Auto) 2.2, [place] # (Auto) 0.5, Eos # (Auto) 0.2, Baso # (Auto) 0.1 09/30/18 12:20: Sodium 142, Potassium 3.2 L, Chloride 103, Carbon Dioxide 33 H, Anion Gap 9.2, BUN 19 H, Creatinine 1.22 H, Estimated Creat Clear 60, Estimated GFR 43 L, Est GFR ( Amer) 52 L, Glucose 109 H, Calcium 9.3, Total Bilirubin 0.4, AST 14 L, ALT 19, Alkaline Phosphatase 86, Troponin I < 0.02, Total Protein 7.5, Albumin 3.4, Globulin 4.1 H, Albumin/Globulin Ratio 0.8 L, TSH 1.02 09/30/18 12:20: Magnesium 1.5 09/30/18 18:14: Troponin I < 0.02 09/30/18 21:09: Troponin I < 0.02 10/01/18 05:20: WBC 6.5, RBC 4.20, Hgb 13.0 D, Hct 39.5, MCV 94.0, MCH 30.6, MCHC 32.6, RDW 12.9, Plt Count 221, MPV 6.7 L, Neut % (Auto) 64.3, Lymph % (Auto) 25.7, [place] % (Auto) 6.7, Eos % (Auto) 3.0, Baso % (Auto) 0.4, Neut # (Auto) 4.2, Lymph # (Auto) 1.7, [place] # (Auto) 0.4, Eos # (Auto) 0.2, Baso # (Auto) 0.0 10/01/18 05:20: Sodium 142, Potassium 3.4 L, Chloride 102, Carbon Dioxide 31, Anion Gap 12.4, BUN 21 H, Creatinine 1.12 H, Estimated Creat Clear 65, Estimated GFR 48 L, Est GFR ( Amer) 58 L, Glucose 98, Calcium 8.9 I & O for Last 24 hours: Intake & Output 09/28/18 09/29/18 09/30/18 10/01/18 23:59 23:59 23:59 23:59 Intake Total 380 / 380 10 10 Output Total 200 / 200 Balance 180 / 180 10 / 10 Weight 92.578 kg Narrative: Alert and oriented x3 Rate and rhythm regular, Bradycardia, No murmur Lung sounds clear and equal. No JVD. No LE edema. No carotid bruits Abdomen soft and nontender. ENT exam unremarkable. Skin pink, warm and dry. No neuro deficits. Assessment and Plan (1) Paroxysmal SVT (supraventricular tachycardia) Current visit: Yes Status: Acute Category: Medical Code(s): I47.1 - Supraventricular tachycardia (2) Hypertension Current visit: Yes Status: Acute Category: Medical Code(s): I10 - Essential (primary) hypertension (3) Chest pressure Current visit: Yes Status: Acute Category: Medical Code(s): R07.89 - Other chest pain (4) Lightheadedness Current visit: Yes Status: Acute Category: Medical Code(s): R42 - Dizziness and giddiness (5) COPD (chronic obstructive pulmonary disease) Current visit: Yes Status: Acute Category: Medical Code(s): J44.9 - Chronic obstructive pulmonary disease, unspecified (6) Ex-smoker for more than 1 year Current visit: Yes Status: Acute Category: Social Hx Code(s): Z87.891 - Personal history of nicotine dependence (7) Hyperlipidemia Current visit: Yes Status: Acute Category: Medical
--- NOTE | 2018-10-01 08:34 | HMH.DCSUM ---
General - General Admission date:: 09/30/18 Discharge date: 10/01/18 HPI HPI: 73-year-old white female came to the emergency department for complaint of slow heart rate in the 40s this a.m while in bed. Further questioning reveals episodes of chest pressure and lightheadedness for the last couple of weeks. Patient denies chest pain or syncope. She also notes occasions of tachycardia which telemetry revealed during ER visit today to be episodes of SVT. Patient was started on IV Cardizem with regulation of the SVT and no recurrence of significant bradycardia. Initial troponin normal. TSH noted to be normal. Cardiology consulted for evaluation recommendations. EKGs show sinus rhythm with left axis deviation and pulmonary disease pattern. No acute ST segment changes noted. Patient relates a remote history of stress approximately 10 years ago with no need for intervention at the time. She denies any history of diabetes. She was not on any rate controlling medications (calcium channel blockers or beta blockers) prior to this ER visit. Above per Cardiology TONO Cho, greatly appreciated. Hospital Course Hospital Course: Admitted for arrythmia and concern for ACS equivalent. Initiated on Cardiazem IV. Had significant response with rate controlled after a few hours. Transitioned to PO diltiazem 30mg q6hrs. Maintained normal rate and rhythm. Due to concern for cardiovascular disease as etiology for arrythmia, patient taken for left heart cath. Tolerated procedure well with no significant blockages noted. No stents placed. As patient's rate was controlled and she had no further episodes, she was stable for DC home. PLan to follow-up with PCP in the coming week. Remained afebrile, without CP, SOA, confusion, N/V. Objective Vital signs: Temp Pulse Resp BP Pulse Ox 98.0 F 57 L 20 107/78 L 94 L 10/01/18 08:00 10/01/18 08:00 10/01/18 08:00 10/01/18 08:00 10/01/18 08:00 Narrative: - *Routine HEENT Exam Head: Present: normocephalic Eye: Present: EOMI, PERRL ENT: Present: mucous membranes moist - *Routine Respiratory Exam Present: CTA bilaterally. Absent: accessory muscle use, rales, rhonchi, wheezes - *Routine Cardiovascular Exam Present: RRR. Absent: murmur, gallop, rubs - *Routine Extremities Exam Absent: edema, calf tenderness Right wrist with trochar insertion site. CDI, no bleeding or bruit. - *Routine Neurological Exam Present: alert, oriented X3, moving all extremities Results Labs on day of discharge: Labs from last 24 hours 10/01/18 10/01/18 09/30/18 05:20 05:20 21:09 WBC 6.5 RBC 4.20 Hgb 13.0 D Hct 39.5 MCV 94.0 MCH 30.6 MCHC 32.6 RDW 12.9 Plt Count 221 MPV 6.7 L Neut % (Auto) 64.3 Lymph % (Auto) 25.7 [place] % (Auto) 6.7 Eos % (Auto) 3.0 Baso % (Auto) 0.4 Neut # (Auto) 4.2 Lymph # (Auto) 1.7 [place] # (Auto) 0.4 Eos # (Auto) 0.2 Baso # (Auto) 0.0 Sodium 142 Potassium 3.4 L Chloride 102 Carbon Dioxide 31 Anion Gap 12.4 BUN 21 H Creatinine 1.12 H Estimated Creat Clear 65 Estimated GFR 48 L Est GFR ( Amer) 58 L Glucose 98 Calcium 8.9 Magnesium Total Bilirubin AST ALT Alkaline Phosphatase Troponin I < 0.02 Total Protein Albumin Globulin Albumin/Globulin Ratio TSH 09/30/18 09/30/18 09/30/18 18:14 12:20 12:20 WBC RBC Hgb Hct MCV MCH MCHC RDW Plt Count MPV Neut % (Auto) Lymph % (Auto) [place] % (Auto) Eos % (Auto) Baso % (Auto) Neut # (Auto) Lymph # (Auto) [place] # (Auto) Eos # (Auto) Baso # (Auto) Sodium 142 Potassium 3.2 L Chloride 103 Carbon Dioxide 33 H Anion Gap 9.2 BUN 19 H Creatinine 1.22 H Estimated Creat Clear 60 Estimated GFR 43 L Est GFR ( Amer) 52 L Glucose 109 H Calcium 9.3 Magnesi
--- NOTE | 2018-10-01 08:56 | HMH.PNCARD ---
Subjective Date: 10/01/18 Time: 08:56 Principal diagnosis: lightheadedness, chest pressure, SVT Interval history: 73-year-old white female in bedside chair in no acute distress. No complaints overnight. Patient did tolerate Cardizem. Telemetry reveals no further episodes of SVT or significant bradycardia. All questions answered regarding cardiac cath today. Exam Vital signs and Labs for Last 24 Hours: Temp Pulse Resp BP Pulse Ox 98.0 F 57 L 20 107/78 L 94 L 10/01/18 08:00 10/01/18 08:00 10/01/18 08:00 10/01/18 08:00 10/01/18 08:00 Laboratory Results - last 24 hr 09/30/18 12:20: WBC 7.6, RBC 4.57, Hgb 14.6, Hct 42.8, MCV 93.8, MCH 31.9 H, MCHC 34.0, RDW 12.9, Plt Count 236, MPV 6.8 L, Neut % (Auto) 61.0, Lymph % (Auto) 28.9, [place] % (Auto) 6.0, Eos % (Auto) 3.2, Baso % (Auto) 1.0, Neut # (Auto) 4.6, Lymph # (Auto) 2.2, [place] # (Auto) 0.5, Eos # (Auto) 0.2, Baso # (Auto) 0.1 09/30/18 12:20: Sodium 142, Potassium 3.2 L, Chloride 103, Carbon Dioxide 33 H, Anion Gap 9.2, BUN 19 H, Creatinine 1.22 H, Estimated Creat Clear 60, Estimated GFR 43 L, Est GFR ( Amer) 52 L, Glucose 109 H, Calcium 9.3, Total Bilirubin 0.4, AST 14 L, ALT 19, Alkaline Phosphatase 86, Troponin I < 0.02, Total Protein 7.5, Albumin 3.4, Globulin 4.1 H, Albumin/Globulin Ratio 0.8 L, TSH 1.02 09/30/18 12:20: Magnesium 1.5 09/30/18 18:14: Troponin I < 0.02 09/30/18 21:09: Troponin I < 0.02 10/01/18 05:20: WBC 6.5, RBC 4.20, Hgb 13.0 D, Hct 39.5, MCV 94.0, MCH 30.6, MCHC 32.6, RDW 12.9, Plt Count 221, MPV 6.7 L, Neut % (Auto) 64.3, Lymph % (Auto) 25.7, [place] % (Auto) 6.7, Eos % (Auto) 3.0, Baso % (Auto) 0.4, Neut # (Auto) 4.2, Lymph # (Auto) 1.7, [place] # (Auto) 0.4, Eos # (Auto) 0.2, Baso # (Auto) 0.0 10/01/18 05:20: Sodium 142, Potassium 3.4 L, Chloride 102, Carbon Dioxide 31, Anion Gap 12.4, BUN 21 H, Creatinine 1.12 H, Estimated Creat Clear 65, Estimated GFR 48 L, Est GFR ( Amer) 58 L, Glucose 98, Calcium 8.9 I & O for Last 24 hours: Intake & Output 09/28/18 09/29/18 09/30/18 10/01/18 11:59 11:59 11:59 11:59 Intake Total 390 / 390 Output Total 200 / 200 Balance 190 / 190 Weight 204 lb 1.6 oz - *Routine HEENT Exam Head: Present: normocephalic Eye: Present: EOMI, PERRL ENT: Present: mucous membranes moist - *Routine Respiratory Exam Present: CTA bilaterally. Absent: accessory muscle use, rales, rhonchi, wheezes - *Routine Cardiovascular Exam Present: RRR. Absent: murmur, gallop, rubs - *Routine Extremities Exam Absent: edema, calf tenderness - *Routine Neurological Exam Present: alert, oriented X3, moving all extremities Progress Note: A&P (1) Paroxysmal SVT (supraventricular tachycardia) Status: Acute Current Visit: Yes (2) Hypertension Status: Acute Current Visit: Yes (3) Chest pressure Status: Acute Current Visit: Yes (4) Lightheadedness Status: Acute Current Visit: Yes (5) COPD (chronic obstructive pulmonary disease) Status: Acute Current Visit: Yes (6) Ex-smoker for more than 1 year Status: Acute Current Visit: Yes (7) Hyperlipidemia Status: Acute Current Visit: Yes (8) Morbid obesity with BMI of 40.0-44.9, adult Status: Acute Current Visit: Yes (9) CKD (chronic kidney disease) stage 3, GFR 30-59 ml/min Status: Acute Current Visit: Yes (10) Hypokalemia Status: Acute Current Visit: Yes Assessment and Plan for All Diagnoses:: 1. Cardiac catheterization later today. Anticipate the patient could be discharged home later today if she receives intervention or not. 2. Patient's SVT seems to be well controlled on Cardizem. Would transition to Cardizem CD 120 mg daily. 3. Echocardiogram shows ejection fraction of 50% with inferior wall motion abnormality. Consider SAE inhibitor if blood pressure allows. 4. Follow-up in our office in 7-10 days.
--- NOTE | 2018-10-01 08:57 | HMH.PHAVTE ---
[facility] Pharm[facility] VTE Monitoring - Patient Demographics Admission date: 09/30/18 Report Date: 10/01/18 Time: 08:00 Allergies/Adverse Reactions: Patient Allergies Penicillins Allergy (Verified 09/30/18 12:59) Sulfa (Sulfonamide Antibiotics) Allergy (Verified 09/30/18 12:59) Height: 1.5 m Weight: 92.578 kg Patient Problems: Current Active Problems Paroxysmal SVT (supraventricular tachycardia) (Acute) Hypertension (Acute) Chest pressure (Acute) Lightheadedness (Acute) COPD (chronic obstructive pulmonary disease) (Acute) Ex-smoker for more than 1 year (Acute) Hyperlipidemia (Acute) Morbid obesity with BMI of 40.0-44.9, adult (Acute) CKD (chronic kidney disease) stage 3, GFR 30-59 ml/min (Acute) Hypokalemia (Acute) - VTE Risk Labs: VTE Related Lab Results Hgb 13.0 g/dL (12.2-16.2) D 10/01/18 05:20 Hct 39.5 % (37.0-47.0) 10/01/18 05:20 Plt Count 221 K/mm3 (142-424) 10/01/18 05:20 BUN 21 mg/dL (7-18) H 10/01/18 05:20 Creatinine 1.12 mg/dL (0.55-1.02) H 10/01/18 05:20 Estimated Creat Clear 65 mL/min (50-200) 10/01/18 05:20 Was VTE Risk Assessment Performed: Yes VTE Score: 4 VTE Risk Level: Low Risk Clinical Trial Participant: No - Prophylaxis VTE Prophylaxis Ordered?: Yes Types of VTE Prophylaxis: TEDS Knee High
--- NOTE | 2018-10-01 09:00 | P.PN_ITS ---
Addendum entered and electronically signed by TONO Leblanc 10/01/18 13:39: Cath shows mild CAD with hyperdynamic LVEF with mild elevation of LVEDP. OK for discharge home on Cardizem. Recommend outpatient holter to look for bradycardia and a. fib. Follow up in 1-2 wks Original Note: Subjective Date: 10/01/18 Time: 08:56 Principal diagnosis: lightheadedness, chest pressure, SVT Interval history: 73-year-old white female in bedside chair in no acute distress. No complaints overnight. Patient did tolerate Cardizem. Telemetry reveals no further episodes of SVT or significant bradycardia. All questions answered regarding cardiac cath today. Exam Vital signs and Labs for Last 24 Hours: Temp Pulse Resp BP Pulse Ox 98.0 F 57 L 20 107/78 L 94 L 10/01/18 08:00 10/01/18 08:00 10/01/18 08:00 10/01/18 08:00 10/01/18 08:00 Laboratory Results - last 24 hr 09/30/18 12:20: WBC 7.6, RBC 4.57, Hgb 14.6, Hct 42.8, MCV 93.8, MCH 31.9 H, MCHC 34.0, RDW 12.9, Plt Count 236, MPV 6.8 L, Neut % (Auto) 61.0, Lymph % (Auto) 28.9, [place] % (Auto) 6.0, Eos % (Auto) 3.2, Baso % (Auto) 1.0, Neut # (A uto) 4.6, Lymph # (Auto) 2.2, [place] # (Auto) 0.5, Eos # (Auto) 0.2, Baso # (Auto) 0.1 09/30/18 12:20: Sodium 142, Potassium 3.2 L, Chloride 103, Carbon Dioxide 33 H, Anion Gap 9.2, BUN 19 H, Creatinine 1.22 H, Estimated Creat Clear 60, Estimated GFR 43 L, Est GFR ( Amer) 52 L, Glucose 109 H, Calcium 9.3, Total Bilirubin 0.4, AST 14 L, ALT 19, Alkaline Phosphatase 86, Troponin I < 0.02, Total Protein 7.5, Albumin 3.4, Globulin 4.1 H, Albumin/Globulin Ratio 0.8 L, TSH 1.02 09/30/18 12:20: Magnesium 1.5 09/30/18 18:14: Troponin I < 0.02 09/30/18 21:09: Troponin I < 0.02 10/01/18 05:20: WBC 6.5, RBC 4.20, Hgb 13.0 D, Hct 39.5, MCV 94.0, MCH 30.6, MCHC 32.6, RDW 12.9, Plt Count 221, MPV 6.7 L, Neut % (Auto) 64.3, Lymph % (Auto) 25.7, [place] % (Auto) 6.7, Eos % (Auto) 3.0, Baso % (Auto) 0.4, Neut # (Auto) 4.2, Lymph # (Auto) 1.7, [place] # (Auto) 0.4, Eos # (Auto) 0.2, Baso # (Auto) 0.0 10/01/18 05:20: Sodium 142, Potassium 3.4 L, Chloride 102, Carbon Dioxide 31, Anion Gap 12.4, BUN 21 H, Creatinine 1.12 H, Estimated Creat Clear 65, Estimated GFR 48 L, Est GFR ( Amer) 58 L, Glucose 98, Calcium 8.9 I & O for Last 24 hours: Intake & Output 09/28/18 09/29/18 09/30/18 10/01/18 11:59 11:59 11:59 11:59 Intake Total 390 / 390 Output Total 200 / 200 Balance 190 / 190 Weight 204 lb 1.6 oz - *Routine HEENT Exam Head: Present: normocephalic Eye: Present: EOMI, PERRL ENT: Present: mucous membranes moist - *Routine Respiratory Exam Present: CTA bilaterally. Absent: accessory muscle use, rales, rhonchi, wheezes - *Routine Cardiovascular Exam Present: RRR. Absent: murmur, gallop, rubs - *Routine Extremities Exam Absent: edema, calf tenderness - *Routine Neurological Exam Present: alert, oriented X3, moving all extremities Progress Note: A&P (1) Paroxysmal SVT (supraventricular tachycardia) Status: Acute Current Visit: Yes (2) Hypertension Status: Acute Current Visit: Yes (3) Chest pressure Status: Acute Current Visit: Yes (4) Lightheadedness Status: Acute Current Visit: Yes (5) COPD (chronic obstructive pulmonary disease) Status: Acute Current Visit: Yes (6) Ex-smoker for more than 1 year Status: Acute Current Visit: Yes
--- NOTE | 2018-10-01 09:02 | HMH.PHAINT ---
HOME MED RECONCILIATION: Reconciled home medications with list from home pharmacy. Corrected list in [employer].
--- NOTE | 2018-10-01 10:14 | PC.NURSE ---
patient laying in bed awake. no needs at this time.
--- NOTE | 2018-10-01 15:26 | PC.NURSE ---
Pt is setting in the chair watching TV at this time. Family members are present and supportive. Pt is A&O x4 and is able to verbalize needs to staff. Pt had a heart cath and returned to the floor at 1300, no stents were placed. Pulses +2 throughout. No signs of bleeding at the insertion site R wrist. Radial band is on and is now being decreased every 15 min. Vital signs have been normal for the pt which include a low BP and low HR. Last recorded 107/57 & 62 bmp. Pt did have c/o lower back pain and rated it 3/10. Pt was given 650mg Tylenol. Pt was been up walking to the BR. Pt ate 75% of her lunch and tolerated it well with no N/V. Anticipated discharge later tonight. Call light is within reach and will continue to observe.
--- NOTE | 2018-10-01 15:33 | HMH.PHAINT ---
DISCHARGE-DISCUSSED DISCHARGE MEDICATIONS WITH PATIENT AND DAUGHTER. PATIENT STARTING DILTIAZEM 30 MG Q6H. PATIENT'S SCRIPT WAS SENT TO [facility]. CALLED TO VERIFY AND ASK ABOUT PRICING FOR PATIENT. PATIENT TO FOLLOW UP WITH DR. BRUNO'S OFFICE IN A WEEK.
== END 2018-10-01 16:55 | disposition home or self-care (01) ==
LOC: ER 15:02 → 2ND 15:25
PROVIDERS: Internal Medicine; Physician Assistant; Admitting Provider Internal Medicine Adolescent Medicine; Emergency Provider Emergency Medicine; PCP Internal Medicine; Visit Provider Internal Medicine Adolescent Medicine
DX: I47.1 Supraventricular tachycardia (principal); I20.0 Unstable angina; J44.9 Chronic obstructive pulmonary disease, unspecified; E78.5 Hyperlipidemia, unspecified; I12.9 Hypertensive chronic kidney disease with stage 1 through stage 4 chronic kidney disease, or unspecified chronic kidney disease; N18.3 Chronic kidney disease, stage 3 (moderate); I50.30 Unspecified diastolic (congestive) heart failure; E66.01 Morbid (severe) obesity due to excess calories; E87.6 Hypokalemia; R06.02 Shortness of breath; R42 Dizziness and giddiness; R07.89 Other chest pain; Z82.49 Family history of ischemic heart disease and other diseases of the circulatory system; Z86.718 Personal history of other venous thrombosis and embolism; Z79.82 Long term (current) use of aspirin; Z79.51 Long term (current) use of inhaled steroids; Z79.899 Other long term (current) drug therapy; Z88.0 Allergy status to penicillin; Z88.2 Allergy status to sulfonamides; Z87.891 Personal history of nicotine dependence; Z68.41 Body mass index [BMI] 40.0-44.9, adult
CPT/HCPCS: 36415; 71045; 80048; 80053; 83735; 84443; 84484; 85025; 93005; 93306; 93458; 94761; 96365; 96375; 99152; 99284; C1725; C1769; G0378; J1644; J2405; Q9966

== ENCOUNTER → 2018-10-11 11:21 | Outpatient (CLI) | payer MEDICARE, SELFPAY | PROVIDERS: PCP Internal Medicine; Visit Provider Internal Medicine | DX: E66.01 Morbid (severe) obesity due to excess calories (principal); E78.5 Hyperlipidemia, unspecified; I47.1 Supraventricular tachycardia; J44.9 Chronic obstructive pulmonary disease, unspecified; N18.3 Chronic kidney disease, stage 3 (moderate); R42 Dizziness and giddiness; Z68.41 Body mass index [BMI] 40.0-44.9, adult; Z87.891 Personal history of nicotine dependence | CPT/HCPCS: 93225; 93226 ==

== ENCOUNTER → 2018-11-03 10:33 | Outpatient (CLI) | payer MEDICARE, SELFPAY | PROVIDERS: PCP Internal Medicine; Visit Provider Internal Medicine | DX: I49.5 Sick sinus syndrome (principal) | CPT/HCPCS: 93225; 93226 ==

== ENCOUNTER 2018-12-23 06:44 | Observation (INO) ==
--- NOTE | 2018-12-23 07:10 | Emergency Department Note ---
ED Disposition Clinical Impression: Morbid obesity with BMI of 40.0-44.9, adult, CKD (chronic kidney disease) stage 3, GFR 30-59 ml/min Cardiac arrhythmia Qualifiers: Arrhythmia type: unspecified cardiac arrhythmia Qualified Code(s): I49.9 - Cardiac arrhythmia, unspecified COPD (chronic obstructive pulmonary disease) Qualifiers: COPD type: unspecified COPD Qualified Code(s): J44.9 - Chronic obstructive pulmonary disease, unspecified Disposition: Admitted as Observation Condition on Discharge: Good - Critical Care Critical Care Time: No Attestation: On 12/23/18, the high probability of a clinically significant, sudden or life threatening deterioration of the following system(s) required my full and direct attention, intervention and personal management. The time I documented below is in addition to time spent performing reported procedures but includes the following listed in this critical care notation. Medical Decision Making - Medical Records Medical records reviewed: Yes: I reviewed the patient's medical records. - Konrad Inquiry Pt receiving controlled substance: No Vital Signs: 12/23/18 06:44 12/23/18 07:20 12/23/18 07:50 Temperature 98.6 F Temperature Source Oral Pulse Rate [Right Brachial] 52 L 48 L 48 L Respiratory Rate 22 Blood Pressure [Right Arm] 135/91 H 119/58 L 104/61 L Blood Pressure Mean [Right Arm] 105 78 75 Blood Pressure Source [Right Arm] Automatic Cuff Blood Pressure Position [Right Arm] Sitting 02 Sat by Pulse Oximetry 91 L 97 97 Oxygen Delivery Method Room Air - Lab Data Lab results reviewed: Yes: I reviewed the patient's lab results. Lab Results 12/23/18 06:45: WBC 11.4 H, RBC 4.38, Hgb 14.2, Hct 41.8, MCV 95.5, MCH 32.3 H, MCHC 33.9, RDW 12.6, Plt Count 284, MPV 7.2 L, Neut % (Auto) 59.4, Lymph % (Auto) 27.3, [place] % (Auto) 9.3, Eos % (Auto) 3.4, Baso % (Auto) 0.5, Neut # (Auto) 6.8, Lymph # (Auto) 3.1, [place] # (Auto) 1.1 H, Eos # (Auto) 0.4, Baso # (Auto) 0.1 12/23/18 06:45: Sodium 139, Potassium 3.6, Chloride 101, Carbon Dioxide 32, Anion Gap 9.6, BUN 24 H, Creatinine 1.11 H, Estimated Creat Clear 66, Estimated GFR 48 L, Est GFR ( Amer) 58 L, Glucose 92, Calcium 9.1, Troponin I < 0.02 12/23/18 06:58: Urine Color Yellow, Urine Appearance Clear, Urine pH 6.5, Ur Specific [place] <= 1.005, Urine Protein Negative, Urine Glucose (UA) Negative, Urine Ketones Negative, Urine Blood Negative, Urine Nitrate Negative, Urine Bilirubin Negative, Urine Urobilinogen 0.2, Ur Leukocyte Esterase 1+ A, Urine RBC None, Urine WBC 3-5, Ur Squamous Epith Cells 5-10, Urine Bacteria Trace Result diagrams: 12/23/18 06:45 12/23/18 06:45 Orders (Tests/Meds): ED MEDICATIONS Discontinued Medications Generic Name Dose Route Start Last Admin Trade Name Freq PRN Reason Stop Dose Admin Aspirin 242 mg 12/23/18 07:49 12/23/18 07:58 Aspirin 81mg Enteric Coated Tablet PO 12/23/18 07:50 242 mg ONCE ONE Administration ORDERS Category Date Time Status Chest XR 2 view (NOT portable) [XR chest 2V] Stat Exams 12/23/18 06:49 Taken Urine Culture Stat Micro 12/23/18 06:58 Received - Radiology Data #1 Image(s): Chest Image Reviewed: Yes I reviewed the patient's radiology image Preliminary Findings: Abnormal (copd) - ECG Data Tracing #1 Arrhythmias present: sinus diego Ischemic changes: non-specific ST-T wave changes - Physician Consults Physician Consulted: violet Reason -: Pt condition Chest Pain HPI - General Chief Complaint: Chest Pain Stated Complaint: CP Time Seen by Provider: 12/23/18 06:55 Mode of Arrival: Ambulatory Source of Information: Patient, Relative, Medical Record Limitations: No Limitations Description of Symptoms (Recalled from ER Triage Doc. by RN): C/O CP THAT BEGAN AROUND 0300. DESCRIBED FEELING IF SOMEONE IS FLICKING HER IN THE LT CHEST. C/O SOA WELL, BUT ADVISES HX OF COPD AND ASTHMA. PT DENIES LAMBERT, N/V - History of Present Illness HPI narrative: pt with lt sided chest pain which has been intermittent and has seen card - she has lightheadness and slow hr - no syncope and she reports hr low as 40 MD complaint: chest pain indicative of cardiac Onset (ago): hour(s) Duration: intermittent Activity at onset: during rest Pain location: left chest Severity: similar to previous episodes Quality: dull Pain radiation: none Risk Factors for CAD: Family Hx of CAD Treatments prior to or on arrival for Cardiac Chest Pain: none - YESSICA Score for Non-Stemi Age of Patient: 70-79 years old Heart Rate: <50 bpm Systolic Blood Pressure: 120-139 mmhg Serum Creatinine: 0.80-1.19 mg/dl CHF [place] Class: I-No CHF Other Risk Factors: None Non-Stemi Risk Score: 116 - Related Data Prior Cardiac Testing/Procedures: Cardiac Angiogram On Oral Contraceptives: No Home Medications Medication Instructions Recorded Confirmed Albuterol Sulfate [Albuterol HFA 1 puff IH Q4HP PRN 09/30/18 11/22/18 Inhaler] Aspirin 81 mg PO DAILY 09/30/18 11/22/18 Furosemide [Furosemide 40MG tAB] 40 mg PO DAILY 09/30/18 11/22/18 Losartan Potassium 100 mg PO DAILY 09/30/18 11/22/18 Potassium Chloride [Klor-con 20 20 meq PO DAILY 09/30/18 11/22/18 mEq tablet] hydroCHLOROthiazide [HCTZ 25mg 25 mg PO DAILY 09/30/18 11/22/18 tab] acetaminophen 500 mg tablet 500 mg PO Q6H PRN 11/08/18 11/22/18 prednisone 10 mg tablet 10 mg PO DAILY 12/20/18 12/20/18 Previous Rx's Medication Instructions Recorded bisoprolol fumarate 5 mg tablet 5 mg PO QDAY #30 tab 12/20/18 Allergies Allergy/AdvReac Type Severity Reaction Status Date / Time Penicillins Allergy Verified 12/20/18 13:57 Sulfa (Sulfonamide Allergy Verified 12/20/18 13:57 Antibiotics) [facility] History - Hepatitis A Screen Drug use history?: No High risk sexual behaviors?: No History of sexually transmitted infection?: No Currently employed?: No Childcare worker?: No Do you have indoor plumbing?: Yes Do you have electricity?: Yes Attestation statement:: This patient has been screened for Hepatitis A risk factors. I have reviewed the patient's past medical history: Yes Medical History: Reports:: Hypertension Denies:: Anxiety, Cancer, Depression, Diabetes Mellitus Type 1, Diabetes Em litus Type 2, Internal Pacemaker, MRSA Other Medical History: Reports: Arthritis, Cataracts, Sinus Problems Other Surgeries: Yes: Cardiac Catheterization, Colonoscopy, , EGD, Hysterectomy-Total, Other (cysts removed from bilat feet). No: Pacemaker Amputation: No Fractures: No - Social History Smoking Status: Never smoker Tobacco Type: cigarettes # Packs/Day (cigarettes): 1 #Yrs smoked (if former smoker): 57 Alcohol Intake: never Substance Use Type: denies use Occupational Status: unemployed Housing: house Household Members: children - Psychiatric History Expresses thoughts of harming self/others: None Suicide Plan Description: No Plan Pschychiatric History:: Denies:: Anxiety, Attention Deficit Disorder, Bipolar Disorder, Depression, Eating Disorder, Post Traumatic Stress Disorder, Suicide Attempt, Psychiatric Treatment, Schizophrenia Family Hx:: Cancer, Coronary Artery Disease, Heart Attack, Hyperlipidemia, Hypertension, Stroke ROS Obtained: Yes All systems reviewed & no additional complaints - Constitutional Constitutional: Denies fever(s) - Eyes Eyes: Denies change in vision - ENT Ears, Nose, Mouth, and Throat: Denies sore throat - Cardiovascular Cardiovascular: Reports chest pain, Denies dyspnea, Reports lightheadedness, Reports slow heart rate - Respiratory Respiratory: No cough - Gastrointestinal Gastrointestingal: Denies: abdominal pain - Genitourinary Male Genitourinary: Denies hematuria - Musculoskeletal Musculoskeletal: Denies joint swelling - Integumentary/Breasts Skin/Breast: Denies rash - Neurologic Neurologic: Denies seizure-like activity Physical Exam - General General appearance: in no apparent distress, obese - Head Head exam: normocephalic - Eye Eye exam: Present: PERRL, EOMI - ENT ENT exam: Absent: mucous membranes moist - Neck Neck exam: Present: trachea midline - Respiratory Respiratory exam: Absent: respiratory distress - Cardiovascular Cardiovascular exam: Present: bradycardia, systolic murmur, +S4 - Abdominal Exam Abdominal exam: Present: soft. Absent: tenderness - Extremities Exam Extremities exam: Absent: calf tenderness - Neurological Exam Neurological exam: Present: alert, CN II-XII intact - Psychiatric Psychiatric exam: Present: normal affect - Skin Skin exam: Absent: rash
--- NOTE | 2018-12-23 07:36 | Consult Report ---
History of Present Illness Consult date: 12/23/18 Requesting physician: Sandor So Consult reason: chest pain Chief complaint: chest pain, light headedness Additional Medical History:: 1. Tobacco use starting age 16 and stopped approximately age 60, smoked 3-4 packs/day A. COPD/asthma 2. Hypertension A. Echo,09/2018 1. Technically difficult study because of the patient's factor and poor acoustic windows. 2. Left atrium is mildly enlarged, left ventricle is normal size, mild concentric left ventricular hypertrophy, visually estimated ejection fraction 50%, there appears to be mild hypokinesis involving the inferior wall. 3. The right atrium and right ventricle are mildly enlarged with normal contractility. 4. The aortic valve is thickened and calcified leaflet continue to display mobility. 5. The mitral and tricuspid valve leaflets are minimally thickened. 6. The pulmonic valve is poorly visualized. 7. No significant pericardial effusion noted. DOPPLER INTERROGATION: Doppler interrogation of the aortic, mitral and tricuspid valvular presence of mild mitral and tricuspid regurgitation, tricuspid regurgitation jet velocity is inadequate for calculation of the right ventricular systolic pressure, grade 1 diastolic dysfunction seen with tissue Doppler evidence of raised left atrial pressure. CONCLUSION: 1. Technically difficult study because of the patient's factors and poor acoustic windows 2. Mild biatrial enlargement, normal left ventricular size, mild concentric left ventricular hypertrophy, visually estimated ejection fraction 50%, there ap pears to be mild inferior wall hypokinesis. 3. Mildly enlarged right ventricle with normal contractility. 4. Mild mitral and tricuspid regurgitation. 5. Grade 1 diastolic dysfunction seen with tissue Doppler evidence of raised left atrial pressure. 6. No significant pericardial effusion noted. 3. Hyperlipidemia 4. Family history of coronary artery disease in her father with heart attack at age 48 5. Remote history of DVT of the right lower extremity 6. CKD stage 3 with Cr 1.2 and GFR 43 7. Tachy-Diego Syndrome/SSS A. Hospitalized for SVT, 09/2018 B. Holter monitor, 10/2018, Brief SVT with avg HR of 55 bpm with lowest of 40 bpm 8. Cardiac cath, 09/2018 A. ANGIOGRAPHIC RESULTS: 1. The left main artery normal 2. The left anterior descending artery has proximal 10% stenoses 3. The circumflex artery nondominant yet still large with a mild proximal 10% stenosis 4. The right coronary artery is a dominant vessel with mild 10% mid vessel stenoses 5. The MARTÍNEZ ventriculogram reveals hyperdynamic 75% 6. The left ventricular end-diastolic pressure 20 mmHg IMPRESSION: 1. Mild nonflow limiting coronary disease 2. Hyperdynamic ventricle consistent with diastolic dysfunction and or hypertensive heart disease 3. Elevated LVEDP consistent with diastolic dysfunction and or hypertensive heart disease PLAN: 1. Medical management for coronary disease 2. Treatment of hypertension for diastolic dysfunction 3. Standard therapy for paroxysmal atrial fibrillation History of present illness: 73 yo WF with history of mild CAD by cardiac cath, 09/2018, and recently diagnosed tachy-diego syndrome with attempts at finding a medication she tolerates without symptoms, came to the ER this AM due to chest pain and lightheadedness. Pt brought her home vitals diary documenting HR into the high 30's bpm since starting bisoprolol 5 mg early this week (switched from diltiazem due to recurrent fatigue and dizziness with bradycardia as well). Some chest discomfort noted recently but relates some issues with her asthma that she thinks is causing the chest pain. EKG in ER is sinus diego at 46 bpm with RSR' pattern. Pt states she can't live like this and is ready for a pacemaker if needed. Cardiology consulted for evaluation and recommendation. [facility] History Medical History: Reports:: Hypertension Denies:: Anxiety, Cancer, Depression, Diabetes Mellitus Type 1, Diabetes Mellitus Type 2, Internal Pacemaker, MRSA *Have you ever received a pneumonia vaccine?: Yes *Have you received a flu vaccine this season?: No Other Medical History: Reports: Arthritis, Cataracts, Sinus Problems Other Surgeries: Yes: Cardiac Catheterization, Colonoscopy, , EGD, Hysterectomy-Total, Other (cysts removed from bilat feet). No: Pacemaker Amputation: No Fractures: No - *Social History Smoking Status: Never smoker Tobacco Type: cigarettes # Packs/Day (cigarettes): 1 #Yrs smoked (if former smoker): 57 Alcohol Intake: never Substance Use Type: denies use *Occupational Status:: unemployed Housing: house Household Members: children *Travel in the last 8 weeks: None - Psychiatric History Expresses thoughts of harming self/others: None Suicide Plan Description: No Plan Pschychiatric History:: Denies:: Anxiety, Attention Deficit Disorder, Bipolar Disorder, Depression, Eating Disorder, Post Traumatic Stress Disorder, Suicide Attempt, Psychiatric Treatment, Schizophrenia Family Hx:: Cancer, Coronary Artery Disease, Heart Attack, Hyperlipidemia, Hypertension, Stroke Meds Home Medications Medication Instructions Recorded Confirmed Type Albuterol Sulfate [Albuterol HFA 1 puff IH Q4HP PRN 09/30/18 11/22/18 History Inhaler] Aspirin 81 mg PO DAILY 09/30/18 11/22/18 History Furosemide [Furosemide 40MG tAB] 40 mg PO DAILY 09/30/18 11/22/18 History Losartan Potassium 100 mg PO DAILY 09/30/18 11/22/18 History Potassium Chloride [Klor-con 20 20 meq PO DAILY 09/30/18 11/22/18 History mEq tablet] hydroCHLOROthiazide [HCTZ 25mg 25 mg PO DAILY 09/30/18 11/22/18 History tab] acetaminophen 500 mg tablet 500 mg PO Q6H PRN 11/08/18 11/22/18 History bisoprolol fumarate 5 mg tablet 5 mg PO QDAY #30 tab 12/20/18 12/20/18 Rx prednisone 10 mg tablet 10 mg PO DAILY 12/20/18 12/20/18 History Allergies Allergy/AdvReac Type Severity Reaction Status Date / Time Penicillins Allergy Verified 12/20/18 13:57 Sulfa (Sulfonamide Allergy Verified 12/20/18 13:57 Antibiotics) Review of Systems - *Cardiovascular Reports chest pain, Reports shortness of breath with activity, Reports slow heart rate - *Respiratory Reports chest congestion, Reports shortness of breath with activity - *Gastrointestinal Denies abdominal pain, Denies loose stools, Denies vomiting - *Genitourinary Denies painful urination, Denies blood in urine - *Musculoskeletal Denies joint pain, Denies back pain - *Neurologic Denies dizziness, Denies seizure-like activity, Denies tingling Exam Vital signs and Labs for Last 24 Hours: Temp Pulse Resp BP Pulse Ox 98.6 F 48 L 22 119/58 L 97 12/23/18 06:44 12/23/18 07:20 12/23/18 06:44 12/23/18 07:20 12/23/18 07:20 I & O for Last 24 hours: Intake & Output 12/20/18 12/21/18 12/22/18 12/23/18 11:59 11:59 11:59 11:59 Weight 204 lb - *Routine HEENT Exam Head: Present: normocephalic Eye: Present: EOMI, PERRL ENT: Present: mucous membranes moist - *Routine Respiratory Exam Present: rhonchi, wheezes. Absent: accessory muscle use, rales - *Routine Cardiovascular Exam Present: RRR. Absent: murmur, gallop, rubs - *Routine Abdominal Exam Present: soft. Absent: tenderness, distended, guarding - *Routine Extremities Exam Absent: edema, calf tenderness - *Routine Neurological Exam Present: alert, oriented X3, moving all extremities Assessment and Plan (1) Tachy-diego syndrome Current visit: Yes Status: Acute Category: Medical Code(s): I49.5 - Sick sinus syndrome (2) Sick sinus syndrome Current visit: Yes Status: Acute Category: Medical Code(s): I49.5 - Sick sinus syndrome (3) CKD (chronic kidney disease) stage 3, GFR 30-59 ml/min Current visit: No Status: Acute Category: Medical Code(s): N18.3 - Chronic kidney disease, stage 3 (moderate) (4) COPD (chronic obstructive pulmonary disease) Current visit: No Status: Acute Qualifiers: COPD type: unspecified COPD Qualified Code(s): J44.9 - Chronic obstructive pulmonary disease, unspecified Category: Medical Code(s): J44.9 - Chronic obstructive pulmonary disease, unsp ecified (5) Lightheadedness Current visit: No Status: Acute Category: Medical Code(s): R42 - Dizziness and giddiness (6) CAD (coronary artery disease) Current visit: No Status: Chronic Qualifiers: Coronary Disease-Associated Artery/Lesion type: [place] artery [place] vs. transplanted heart: [place] heart Associated angina: without angina Qualified Code(s): I25.10 - Atherosclerotic heart disease of [place] coronary artery without angina pectoris Category: Medical Code(s): I25.10 - Atherosclerotic heart disease of [place] coronary artery without angina pectoris (7) Hyperlipidemia Current visit: No Status: Chronic Qualifiers: Hyperlipidemia type: mixed hyperlipidemia Qualified Code(s): E78.2 - Mixed hyperlipidemia Category: Medical Code(s): E78.5 - Hyperlipidemia, unspecified (8) Hypertension Current visit: No Status: Chronic Qualifiers: Hypertension type: essential hypertension Qualified Code(s): I10 - Essential (primary) hypertension Category: Medical Code(s): I10 - Essential (primary) hypertension (9) Palpitations Current visit: No Status: Chronic Category: Medical Code(s): R00.2 - Palpitations (10) Paroxysmal SVT (supraventricular tachycardia) Current visit: No Status: Chronic Category: Medical Code(s): I47.1 - S upraventricular tachycardia - Assessment and plan all Dx Assessment and Plan for all problems:: 1. Recommend dual chamber pacemaker for symptomatic tachy-diego syndrome/SSS. Risks, benefits and procedure explained and pt wishes to proceed. Last meal was at 4 AM. Pacemaker will be scheduled for 12 PM today. 2. Continue home meds, she has already taken her bisoprolol this AM.
[2018-12-23 07:39] LABS: Microscopic, Urine URINE MICROSCOPIC (MICROSCOPIC)
[2018-12-23 07:42] LABS: Basophils # 0.1 K/mm3 (0-0.2); Basophils % 0.5 % (0.1-2.0); Eosinophils # 0.4 K/mm3 (0.0-0.4); Eosinophils % 3.4 % (0.1-12.0); Hematocrit 41.8 % (37.0-47.0); Hemoglobin 14.2 g/dL (12.2-16.2); Lymphocytes # 3.1 K/mm3 (0.7-4.5); Lymphocytes % 27.3 % (10-50); Mean Corpuscular HGB Conc 33.9 g/dL (31.8-35.4); Mean Corpuscular Hemoglobin 32.3 pg (27.0-31.2); Mean Corpuscular Volume 95.5 fl (81-99); Mean Platelet Volume 7.2 fl (7.4-10.4); Monocytes # 1.1 K/mm3 (0.1-1.0); Monocytes % 9.3 % (1.7-9.3); Neutrophils # 6.8 K/mm3 (1.8-7.8); Neutrophils % 59.4 % (37.0-80.0); Platelet Count 284 K/mm3 (142-424); Red Blood Count 4.38 M/mm3 (4.20-5.40); Red Cell Distribution Width 12.6 % (11.5-17.5); White Blood Count 11.4 K/mm3 (4.8-10.8)
[2018-12-23 07:46] LABS: Appearance,Urine CLEAR (Clear); Bilirubin,Urine Negative (Negative); Blood, Urine Negative (Negative); Color,Urine YELLOW (Yellow); Glucose,Urine (UA) Negative (Negative); Ketones,Urine Negative (Negative); Leukocyte Esterase,Urine 1+ (Negative); PH,Urine 6.5 (5.0-8.5); Protein,Urine Negative (Negative); Specific Gravity, Urine <= 1.005 (1.005-1.030); Urobilinogen,Urine 0.2 EU/dl (0.2)
[2018-12-23 07:53] LABS: Bacteria,Urine Trace /lpf
[2018-12-23 07:58] LABS: Anion Gap 9.6 mEq/L (5-15); Blood Urea Nitrogen 24 mg/dL (7-18); Calcium 9.1 mg/dL (8.5-10.1); Carbon Dioxide 32 mmol/L (21.0-32.0); Chloride 101 mmol/L (98-107); Glucose 92 mg/dL (74-106); Potassium 3.6 mmoL/L (3.5-5.1); Sodium 139 mmol/L (136-145)
--- NOTE | 2018-12-23 09:23 | History & Physical Report ---
*Admission Date: 12/23/18 *Chief complaint: Bradycardia *History of present illness: 73 yo WF with history of mild CAD by cardiac cath, 09/2018, and recently diagnosed tachy-diego syndrome with attempts at finding a medication she tolerates without symptoms, came to the ER this AM due to chest pain and lighth eadedness. Pt brought her home vitals diary documenting HR into the high 30's bpm since starting bisoprolol 5 mg early this week (switched from diltiazem due to recurrent fatigue and dizziness with bradycardia as well). Some chest discomfort noted recently but relates some issues with her asthma that she thinks is causing the chest pain. EKG in ER is sinus diego at 46 bpm with RSR' pattern. Pt states she can't live like this and is ready for a pacemaker if needed. Cardiology consulted for evaluation and recommendation. [facility] History I have reviewed the patient's past medical history: Yes Medical History: Reports:: Hypertension Denies:: Anxiety, Cancer, Depression, Diabetes Mellitus Type 1, Diabetes Mellitus Type 2, Internal Pacemaker, MRSA *Have you ever received a pneumonia vaccine?: Yes *Have you received a flu vaccine this season?: No Other Medical History: Reports: Arthritis, Cataracts, Sinus Problems Other Surgeries: Yes: Cardiac Catheterization, Colonoscopy, , EGD, Hysterectomy-Total, Other (cysts removed from bilat feet). No: Pacemaker Amputation: No Fractures: No - *Social History Smoking Status: Never smoker Tobacco Type: cigarettes # Packs/Day (cigarettes): 1 #Yrs smoked (if former smoker): 57 Alcohol Intake: never Substance Use Type: denies use *Occupational Status:: unemployed Housing: house Household Members: children *Travel in the last 8 weeks: None - Psychiatric History Expresses thoughts of harming self/others: None Suicide Plan Description: No Plan Pschychiatric History:: Denies:: Anxiety, Attention Deficit Disorder, Bipolar Disorder, Depression, Eating Disorder, Post Traumatic Stress Disorder, Suicide Attempt, Psychiatric Treatment, Schizophrenia Family Hx:: Cancer, Coronary Artery Disease, Heart Attack, Hyperlipidemia, Hypertension, Stroke Review of Systems - Review of Systems Review of systems:: pertinent systems reviewed and negative unless documented below Patient denies actual chest pain but reports significant fatigue and lightheadedness. Otherwise negative review of systems for pulmonary, GI, or neurologic complaints. - *Neurologic Denies dizziness, Denies seizure-like activity, Denies tingling Meds Home Medications Medication Instructions Recorded Confirmed Type Albuterol Sulfate [Albuterol HFA 1 puff IH Q4HP PRN 09/30/18 11/22/18 History Inhaler] Aspirin 81 mg PO DAILY 09/30/18 12/23/18 History Furosemide [Furosemide 40MG tAB] 40 mg PO DAILY 09/30/18 12/23/18 History Losartan Potassium 100 mg PO DAILY 09/30/18 12/23/18 History Potassium Chloride [Klor-con 20 20 meq PO DAILY 09/30/18 12/23/18 History mEq tablet] hydroCHLOROthiazide [HCTZ 25mg 25 mg PO DAILY 09/30/18 12/23/18 History tab] acetaminophen 500 mg tablet 500 mg PO Q6H PRN 11/08/18 11/22/18 History bisoprolol fumarate 5 mg tablet 5 mg PO QDAY #30 tab 12/20/18 12/23/18 Rx prednisone 10 mg tablet 10 mg PO DAILY 12/20/18 12/20/18 History Allergies Allergy/AdvReac Type Severity Reaction Status Date / Time Penicillins Allergy Verified 12/20/18 13:57 Sulfa (Sulfonamide Allergy Verified 12/20/18 13:57 Antibiotics) Exam Vital signs and Labs for Last 24 Hours: Temp Pulse Resp BP Pulse Ox 98.4 F 46 L 20 128/55 L 97 12/23/18 08:59 12/23/18 08:59 12/23/18 08:59 12/23/18 08:59 12/23/18 08:30 Laboratory Results - last 24 hr 12/23/18 06:45: WBC 11.4 H, RBC 4.38, Hgb 14.2, Hct 41.8, MCV 95.5, MCH 32.3 H, MCHC 33.9, RDW 12.6, Plt Count 284, MPV 7.2 L, Neut % (Auto) 59.4, Lymph % (Auto) 27.3, [place] % (Auto) 9.3, Eos % (Auto) 3.4, Baso % (Auto) 0.5, Neut # (Auto) 6.8, Lymph # (Auto) 3.1, [place] # (Auto) 1.1 H, Eos # (Auto) 0.4, Baso # (Auto) 0.1 12/23/18 06:45: Sodium 139, Potassium 3.6, Chloride 101, Carbon Dioxide 32, Anion Gap 9.6, BUN 24 H, Creatinine 1.11 H, Estimated Creat Clear 66, Estimated GFR 48 L, Est GFR ( Amer) 58 L, Glucose 92, Calcium 9.1, Troponin I < 0.02 12/23/18 06:58: Urine Color Yellow, Urine Appearance Clear, Urine pH 6.5, Ur Specific [place] <= 1.005, Urine Protein Negative, Urine Glucose (UA) Negative, Urine Ketones Negative, Urine Blood Negative, Urine Nitrate Negative, Urine Bilirubin Negative, Urine Urobilinogen 0.2, Ur Leukocyte Esterase 1+ A, Urine RBC None, Urine WBC 3-5, Ur Squamous Epith Cells 5-10, Urine Bacteria Trace I & O for Last 24 hours: Intake & Output 12/20/18 12/21/18 12/22/18 12/23/18 11:59 11:59 11:59 11:59 Weight 204 lb Narrative: Patient is awake, walking about the room, no complaints of pain. Oropharynx clear, no JVD. Heart rate low in the low 40s, soft flow murmur on exam but apical bradycardia noted as well. Lungs clear. No edema. Centripetal obesity noted. Neurologic exam intact Assessment and Plan (1) Tachy-diego syndrome Current visit: Yes Status: Acute Category: Medical Code(s): I49.5 - Sick sinus syndrome (2) Sick sinus syndrome Current visit: Yes Status: Acute Category: Medical Code(s): I49.5 - Sick sinus syndrome (3) CKD (chronic kidney disease) stage 3, GFR 30-59 ml/min Current visit: Yes Status: Acute Category: Medical Code(s): N18.3 - Chronic kidney disease, stage 3 (moderate) (4) COPD (chronic obstructive pulmonary disease) Current visit: Yes Status: Acute Qualifiers: COPD type: unspecified COPD Qualified Code(s): J44.9 - Chronic obstructive pulmonary disease, unspecified Category: Medical Code(s): J44.9 - Chronic obstructive pulmonary disease, unspecified (5) Lightheadedness Current visit: No Status: Acute Category: Medical Code(s): R42 - Dizziness and giddiness (6) CAD (coronary artery disease) Current visit: No Status: Chronic Qualifiers: Coronary Disease-Associated Artery/Lesion type: [place] artery [place] vs. transplanted heart: [place] heart Associated angina: without angina Qualified Code(s): I25.10 - Atherosclerotic heart disease of [place] coronary artery without angina pectoris Category: Medical Code(s): I25.10 - Atherosclerotic heart disease of [place] coronary artery without angina pectoris (7) Hyperlipidemia Current visit: No Status: Chronic Qualifiers: Hyperlipidemia type: mixed hyperlipidemia Qualified Code(s): E78.2 - Mixed hyperlipidemia Category: Medical Code(s): E78.5 - Hyperlipidemia, unspecified (8) Hypertension Current visit: No Status: Chronic Qualifiers: Hypertension type: essential hypertension Qualified Code(s): I10 - Essential (primary) hypertension Category: Medical Code(s): I10 - Essential (primary) hypertension (9) Palpitations Current visit: No Status: Chronic Category: Medical Code(s): R00.2 - Palpitations (10) Paroxysmal SVT (supraventricular tachycardia) Current visit: No Status: Chronic Category: Medical Code(s): I47.1 - Supraventricular tachycardia - Assessment and plan all Dx Assessment and Plan for all problems:: Admit to hospital. Cardiology consultation for pacemaker intervention. Close observation.
--- NOTE | 2018-12-23 11:24 | Progress Note ---
[facility] Anesthesia Checklist - Patient Identification Patient Identification: Arm Band - Structural Data Admitted From: Inpatient Planned Operative Procedure/s: PPM/AICD placement Consent for Planned Operative Procedure(s) Verified: Yes Verified Documents: Surgical Consent, History and Physical - NPO Status Verified Time NPO: 00:00 - Additional verifications Anesthesia Reactions: No - Airway Assessment C-Spine Mobility Assessed: Yes (mp2) TMJ Mobility Assessed: Yes Dentition: Edentulous - Neurological Assessment Level of Consciousness: Awake, Alert - Anesthesia Plan Anesthesia Risk discussed: Yes Anesthesia Plan: Verified ASA Class: III Anesthesia Type: MAC [facility] History I have reviewed the patient's past medical history: Yes Medical History: Reports:: Chronic Obstructive Pulmonary Disease (COPD), Coronary Artery Disease, Hyperlipidemia, Hypertension, Renal Disease Denies:: Anxiety, Cancer, Depression, Diabetes Mellitus Type 1, Diabetes Mellitus Type 2, Internal Pacemaker, MRSA *Have you ever received a pneumonia vaccine?: No *Have you received a flu vaccine this season?: Yes Other Medical History: Reports: Arthritis, Cataracts, Sinus Problems, Other (sick sinus syndrome) Other Surgeries: Yes: Appendectomy, Cardiac Catheterization, Colonoscopy, C- section (x3), EGD, Hysterectomy-Total, Other (cysts removed from bilat feet). No: Pacemaker Amputation: No Fractures: No - *Social History Educational Level: Attended Grade School Smoking Status: Former smoker Tobacco Type: cigarettes # Packs/Day (cigarettes): 1 #Yrs smoked (if former smoker): 57 Alcohol Intake: never Substance Use Type: denies use *Occupational Status:: retired Housing: house Household Members: none *Travel in the last 8 weeks: None - Psychiatric History Expresses thoughts of harming self/others: None Suicide Plan Description: No Plan Pschychiatric History:: Denies:: Anxiety, Attention Deficit Disorder, Bipolar Disorder, Depression, Eating Disorder, Post Traumatic Stress Disorder, Suicide Attempt, Psychiatric Treatment, Schizophrenia Family Hx:: Cancer, Heart Attack, Hyperlipidemia, Hypertension
--- NOTE | 2018-12-23 12:56 | Progress Note ---
[facility] Anesthesia Record Part I Intake, IV Amount: 600 Estimated blood loss (mL): 10 Urine output (mL): 0 Blood Pressure: 118/53 SaO2: 96 Pulse Rate: 67 Respiratory Rate: 16 Temperature: 97 F Patient is:: Drowsy, Stable Stable to PACU at:: 12:50
--- NOTE | 2018-12-23 12:57 | Progress Note ---
[facility] Anesthesia Record Part II Discharge Time: 13:20 Destination: 2nd floor PACU nurse assessment reviewed?: Yes Patient Condition:: Good Anesthesia Complications:: None Swallowing reflex intact?: Yes Cyanosis?: No
--- NOTE | 2018-12-23 14:41 | Procedure Note ---
[facility] Pacemaker - Pacemaker Placement Date of Procedure:: 12/23/18 Time of Procedure:: 12:30 Procedure Performed:: Pocket formation for permanent pacemaker placement Placement of atrial sensing pacing lead into the right atrial appendage Placement of ventricular sensing pacing lead into the right ventricular apex Permanent pacemaker placement Preoperative Diagnosis:: Symptomatic Bradycardia Complications:: None Estimated Blood Loss (ml):: 10 Technique:: 1% Lidocaine with epinephrine used to anesthetize the left anterior aspect of the chest.Scalpel was used to make the initial cutaneous incision while electrocautery was used to dissect down into the fascia. The fascia was lifted off the pectoralis muscle and digitally manipulated creating a pocket for the pacemaker. The patient was then placed in Trendelenburg position and the subclavian vein was accessed via the Selinger technique. A 7 [place] sheath was placed under fluoroscopic guidance into the subclavian vein. Following this, an additional wire was placed into the sheath. Now, with two wires inside the 7 [place] sheath, this sheath was removed, maintaining the two wires in the subclavian vein. The sheath and dilator was then placed over one of the wires while keeping the other wire in place within the subclavian vein. The dilator was removed from the sheath. Using fluoroscopic guidance, the ventricular lead was placed into the right ventricular apex, screwed and secured into place. Electronic interrogation proved acceptable thresholds and voltage within the lead. Using 3-0 silk, the ventricular lead was then secured into place. Lead was secured to the fascia using the 3-0 silk. Following this, the sheath was pealed away. An additional 7 [place] fresh sheath and dilator was placed over the existing wire. Using fluoroscopic guidance, the atrial lead was then placed into the right atrial appendage and screwed and secured in place. Electrical interrogation demonstrated acceptable thresholds and voltage numbers. The atrial lead was then secured into place using 3-0 silk and then the lead was finally secured to the fascia. With both the atria and ventricular leads in place with acceptable thresholds and sensitivity, the atrial and ventricular leads were placed into the pacemaker generator. Pacemaker generator was then secured to the fascia using 3-0 silk. 1 gram of Ancef was used to flush the pocket. Following the pacemaker being secured to the fascia and in place, Monocryl was used to close the subcutaneous layers while eva were used to close the cutaneous layer. A pressure dressing was placed and the patient was transferred to the postop holding area in stable condition for postoperative care. - Interrogation Narrative: Generator Model [id number] Serial [id number] RA Model [id number] Serial [id number] P-wave 0.5ms Impedance 747Ohms Threshold 0.5V Pulse Width 0.7mA RV Model 7742 Serial [id number] R-wave 0.5ms Impedance 1046Ohms Threshold 0.6V Pulse Width 0.6mA Pacing Parameters: Mode: DDDR Base/Max Track: 60/120 ppm NO D/S @ 10 VOLTS Impression:: Successful pocket formation for permanent pacemaker placement Successful placement of atrial and sensing pacing lead into the right atrial appendage Successful placement of ventricular sensing and pacing lead into the right ventricular apex Successful permanent pacemaker placement Plan: Postoperative wound care
[2018-12-24 06:37] LABS: Basophils % 0.4 % (0.1-2.0); Eosinophils # 0.2 K/mm3 (0.0-0.4); Eosinophils % 2.2 % (0.1-12.0); Hematocrit 39.8 % (37.0-47.0); Hemoglobin 13.2 g/dL (12.2-16.2); Lymphocytes # 1.9 K/mm3 (0.7-4.5); Lymphocytes % 22.6 % (10-50); Mean Corpuscular HGB Conc 33.1 g/dL (31.8-35.4); Mean Corpuscular Hemoglobin 31.6 pg (27.0-31.2); Mean Corpuscular Volume 95.5 fl (81-99); Mean Platelet Volume 6.9 fl (7.4-10.4); Monocytes # 0.7 K/mm3 (0.1-1.0); Monocytes % 8.7 % (1.7-9.3); Neutrophils # 5.6 K/mm3 (1.8-7.8); Neutrophils % 66.1 % (37.0-80.0); Platelet Count 204 K/mm3 (142-424); Red Blood Count 4.17 M/mm3 (4.20-5.40); Red Cell Distribution Width 12.8 % (11.5-17.5); White Blood Count 8.4 K/mm3 (4.8-10.8)
[2018-12-24 06:47] LABS: Anion Gap 11.5 mEq/L (5-15); Calcium 8.6 mg/dL (8.5-10.1); Potassium 3.5 mmoL/L (3.5-5.1)
--- NOTE | 2018-12-24 09:54 | Discharge Summary ---
General - General Admission date:: 12/23/18 Discharge date: 12/24/18 HPI HPI: 73 yo WF with history of mild CAD by cardiac cath, 09/2018, and recently diagnosed tachy-diego syndrome with attempts at finding a medication she tolerates without symptoms, came to the ER this AM due to chest pain and lightheadedness. Pt brought her home vitals diary documenting HR into the high 30's bpm since starting bisoprolol 5 mg early this week (switched from diltiazem due to recurrent fatigue and dizziness with bradycardia as well). Some chest discomfort noted recently but relates some issues with her asthma that she thinks is causing the chest pain. EKG in ER is sinus diego at 46 bpm with RSR' pattern. Pt states she can't live like this and is ready for a pacemaker if needed. Cardiology consulted for evaluation and recommendation. Hospital Course Hospital Course: 73-year-old female admitted for sick sinus syndrome. Pacemaker was placed without incident. Tolerated procedure well. Heart rate improved to the 60s. Patient symptoms significantly reduced. Continue bisoprolol at time of discharge. Medically stable for discharge home. Afebrile, no nausea, vomiting, chest pain. Minimal discomfort at site of ICD placement in left upper chest. Objective Vital signs: Temp Pulse Resp BP Pulse Ox 99.7 F H 75 18 120/64 92 L 12/24/18 08:00 12/24/18 08:00 12/24/18 08:00 12/24/18 08:00 12/24/18 08:00 Narrative: Patient is awake, in bedside chair, no complaints of pain. Oropharynx clear, no JVD. Heart rate low in the low 60s, soft flow murmur on exam, mild tenderness around ICD site, otherwise clean dry and intact. Lungs clear. No edema. Centripetal obesity noted. Neurologic exam intact Results Labs on day of discharge: Labs from last 24 hours 12/24/18 12/24/18 12/23/18 06:30 06:30 14:35 WBC 8.4 D RBC 4.17 L Hgb 13.2 Hct 39.8 MCV 95.5 MCH 31.6 H MCHC 33.1 RDW 12.8 Plt Count 204 D MPV 6.9 L Neut % (Auto) 66.1 Lymph % (Auto) 22.6 [place] % (Auto) 8.7 Eos % (Auto) 2.2 Baso % (Auto) 0.4 Neut # (Auto) 5.6 Lymph # (Auto) 1.9 [place] # (Auto) 0.7 Eos # (Auto) 0.2 Baso # (Auto) 0.0 Sodium 138 Potassium 3.5 Chloride 100 Carbon Dioxide 30 Anion Gap 11.5 BUN 25 H Creatinine 1.02 Estimated Creat Clear 34 Estimated GFR 53 L Est GFR ( Amer) 64 Glucose 106 Calcium 8.6 Troponin I 0.08 H DS: Diagnosis - Discharge Diagnosis (1) Tachy-diego syndrome Status: Resolved (2) Sick sinus syndrome Status: Resolved (3) CKD (chronic kidney disease) stage 3, GFR 30-59 ml/min Status: Chronic (4) COPD (chronic obstructive pulmonary disease) Status: Chronic (5) Lightheadedness Status: Resolved (6) CAD (coronary artery disease) Status: Chronic (7) Hyperlipidemia Status: Chronic (8) Hypertension Status: Chronic (9) Palpitations Status: Chronic (10) Paroxysmal SVT (supraventricular tachycardia) Status: Chronic Discharge Plan - Patient Discharge Instructions ACTIVITY: No heavy lifting DIET: low fat, low cholesterol Patient Instructions: DI for Pacemaker Insertion, DI for Surgical Site Infection, DI for Bradycardia - Follow up Plan Follow up with: Sam Andrews MD [Staff Physician] - Fortino Jackson [Primary Care Provider] - 1 week Disposition: Home, Self-Detention Medications: Home Medications Medication Instructions Recorded Confirmed Type Albuterol Sulfate [Albuterol HFA 1 puff IH Q4HP PRN 09/30/18 12/23/18 History Inhaler] Aspirin 81 mg PO DAILY 09/30/18 12/23/18 History Furosemide [Furosemide 40MG tAB] 40 mg PO DAILY 09/30/18 12/23/18 History Losartan Potassium 100 mg PO DAILY 09/30/18 12/23/18 History Potassium Chloride [Klor-con 20 20 meq PO DAILY 09/30/18 12/23/18 History mEq tablet] hydroCHLOROthiazide [HCTZ 25mg 25 mg PO DAILY 09/30/18 12/23/18 History tab] acetaminophen 500 mg tablet 500 mg PO Q6H PRN 11/08/18 12/23/18 History prednisone 10 mg tablet 10 mg PO DAILY 12/20/18 12/23/18 History Bisoprolol Fumarate [Bisoprolol 5 mg PO DAILY 30 Days #30 tab 12/24/18 Rx 5mg Tablet] Prescriptions/Medication Reconciliation: New Bisoprolol Fumarate [Bisoprolol 5mg Tablet] 5 mg PO DAILY 30 Days #30 tab Continued prednisone 10 mg tablet 10 mg PO DAILY acetaminophen 500 mg tablet 500 mg PO Q6H PRN PRN Reason: pain Albuterol Sulfate [Albuterol HFA Inhaler] 1 puff IH Q4HP PRN PRN Reason: Shortness Of Breath Or Wheezing hydroCHLOROthiazide [HCTZ 25mg tab] 25 mg PO DAILY Furosemide [Furosemide 40MG tAB] 40 mg PO DAILY Potassium Chloride [Klor-con 20 mEq tablet] 20 meq PO DAILY Losartan Potassium 100 mg PO DAILY Aspirin 81 mg PO DAILY Discontinued dilTIAZem HCl [Diltiazem ER] 120 mg PO DAILY
--- NOTE | 2018-12-24 10:10 | Progress Note ---
Subjective Date: 12/24/18 Time: 08:00 Principal diagnosis: Sick Sinus Syndrome Interval history: 73-year-old female admitted to on 12/23/2018 for dizziness and palpitations. Patient stated that her heart rate had been noted and recorded in the 30s at home. Patient did undergo pacemaker placement yesterday. Dual-chamber PPM was placed with no difficulty, due to symptomatic bradycardia. PPM dressing intact with no redness or drainage noted. Slight swelling is noted at the site. Patient states the swelling has been there since PPM was placed. Patient denies chest pain, tightness or pressure. Patient denies shortness of breath. Patient stated she has been up to the restroom several times this morning, with no difficulty. Patient is alert and oriented appropriately x3. Patient does continue to complain of slight dizziness especially with position change. Denies palpitations. Lung sounds clear. Cardiac monitoring reveals paced rhythm with a heart rate of 60 bpm. Labs were obtained this morning. Labs were unremarkable. Discussed instructions with patient regarding pacemaker. Instructed patient no heavy lifting or raising left arm overhead. Instructed patient on signs and symptoms of infection at pacemaker site. Encourage patient to wear arm sling. Patient verbalized understanding of instructions given. Patient will follow-up in cardiac clinic in 1 week for PPM check. Case was discussed with Dr. Andrews. Exam Vital signs and Labs for Last 24 Hours: Temp Pulse Resp BP Pulse Ox 99.7 F H 75 18 120/64 92 L 12/24/18 08:00 12/24/18 08:00 12/24/18 08:00 12/24/18 08:00 12/24/18 08:00 Laboratory Results - last 24 hr 12/23/18 14:35: Troponin I 0.08 H 12/24/18 06:30: WBC 8.4 D, RBC 4.17 L, Hgb 13.2, Hct 39.8, MCV 95.5, MCH 31.6 H , MCHC 33.1, RDW 12.8, Plt Count 204 D, MPV 6.9 L, Neut % (Auto) 66.1, Lymph % (Auto) 22.6, [place] % (Auto) 8.7, Eos % (Auto) 2.2, Baso % (Auto) 0.4, Neut # (Auto) 5.6, Lymph # (Auto) 1.9, [place] # (Auto) 0.7, Eos # (Auto) 0.2, Baso # (Auto) 0.0 12/24/18 06:30: Sodium 138, Potassium 3.5, Chloride 100, Carbon Dioxide 30, Anion Gap 11.5, BUN 25 H, Creatinine 1.02, Estimated Creat Clear 34, Estimated GFR 53 L, Est GFR ( Amer) 64, Glucose 106, Calcium 8.6 I & O for Last 24 hours: Intake & Output 12/21/18 12/22/18 12/23/18 12/24/18 23:59 23:59 23:59 23:59 Intake Total 960 / 960 360 / 360 Balance 960 / 960 360 / 360 Weight 210 lb 210 lb 4 oz Microbiology Reports for the Last 24 Hours: Microbiology 12/23/18 06:58 Urine,Clean Catch Urine Culture - Final Multiple organisms, suggests contamination. - Constitutional no acute distress, obese, cooperative - *Routine HEENT Exam Head: Present: normocephalic - *Routine Neck Exam Present: supple, full ROM, normal carotid upstroke. Absent: JVD, carotid bruit, lymphadenopathy - Routine Chest/Breast/Axilla Exam Chest wall: Present: tenderness, pacemaker - *Routine Respiratory Exam Present: accessory muscle use, CTA bilaterally. Absent: wheezes - *Routine Cardiovascular Exam Present: RRR, Normal S1, Normal S2. Absent: murmur, gallop, click, bradycardia, tachycardia, JVD - *Routine Abdominal Exam Present: soft, normoactive bowel sounds - *Routine Extremities Exam Present: full ROM, pulses intact, normal capillary refill. Absent: cyanosis, clubbing, edema - *Routine Skin Exam Present: intact, dry, normal turgor Comments: PPM dressing dry and intact. - *Routine Neurological Exam Present: alert, oriented X3, CN II-XII intact, normal reflexes, moving all extremities, normal speech - Routine Psychiatric Exam Present: normal affect, normal thought process, cooperative. Absent: suicidal ideation Progress Note: A&P (1) Tachy-diego syndrome Start date: 12/23/18 Status: Acute Current Visit: Yes (2) Sick sinus syndrome Status: Acute Current Visit: Yes (3) CKD (chronic kidney disease) stage 3, GFR 30-59 ml/min Status: Acute Current Visit: Yes (4) COPD (chronic obstructive pulmonary disease) Status: Acute Current Visit: Yes (5) Lightheadedness Status: Acute Current Visit: No (6) CAD (coronary artery disease) Status: Chronic Current Visit: No (7) Hyperlipidemia Status: Chronic Current Visit: No (8) Hypertension Status: Chronic Current Visit: No (9) Palpitations Status: Chronic Current Visit: No (10) Paroxysmal SVT (supraventricular tachycardia) Status: Chronic Current Visit: No Assessment and Plan for All Diagnoses:: Plan: 1. From cardiac standpoint, patient may be discharged home. 2. Continue home medications. 3. Follow-up in cardiac clinic in 1 week for pacemaker check. 4. No lifting or raising left arm overhead. Watch for signs and symptoms of infection at PPM site. 5. Return to cardiac clinic sooner if symptoms develop or persist.
== END 2018-12-24 10:47 | disposition home or self-care (01) ==
LOC: ER 06:44 → 2ND 06:44
PROVIDERS: ADMIT Emergency Medicine; ATTEND Internal Medicine Adolescent Medicine
CPT/HCPCS: 33208; 36415; 71010; 71020; 71045; 71046; 80048; 81001; 84484; 85025; 87086; 93005; 99284; C1785; C1898; G0378; S0077

== ENCOUNTER → 2019-04-08 09:55 | Outpatient (CLI) | payer MEDICARE, SELFPAY ==
--- NOTE | 2019-04-08 09:59 | XR_ITS ---
PROCEDURE: XR CERVICAL SPINE 5V CLINICAL INDICATION: NECK PAIN COMPARISON: No exams were available for comparison FINDINGS: There is straightening of the normal curvature suggesting muscle spasm. There is mild disc space narrowing at the C5-6 and C6-7 levels with mild anterior and posterior osteophytic spurring. The neural foraminal on the left side are not as well demonstrated as on the right side due to patient positioning but no significant neural foraminal compromise is noted. There is mild neural foraminal narrowing on the right side at the C5-6 level secondary to spurring of the uncinate joints. The prevertebral soft tissues are normal and the odontoid is normal. IMPRESSION: Findings suggesting muscle spasm along with mild degenerate disc disease C5-6 and C6-7 Dictated by: Dr. Jose Manuel Wheatley MD 04/08/2019 10:39 Signed by: <Electronically signed by Dr. Jose Manuel Wheatley MD in [place]> 04/08/2019 10:39
== END ==
PROVIDERS: PCP Internal Medicine; Visit Provider Internal Medicine
DX: M54.2 Cervicalgia (principal)
CPT/HCPCS: 72050

== ENCOUNTER → 2020-07-30 10:23 | Outpatient (CLI) | payer MEDICARE, SELFPAY ==
--- NOTE | 2020-07-30 10:23 | CA_ITS ---
APPROVED REPORT EXAM: Comprehensive 2D, Doppler, and color-flow Echocardiogram Transport Medic: Azalia Estevez RDCS Ht: 4 ft 11 in Wt: 208lbs BSA: 1.87 BP: 140/62 mmHg Indications: PP,CAD,COPD,SOA,IVERSON,HTN,HLP,OBESITY 2D Dimensions LVOT 1.74 cm (M/F) 1.5-2.5 M-Mode Dimensions RVDd 2.94 cm (0.9-2.6) LA Diam 3.24 cm (1.9-4.0) LVDd 5.28 cm (3.5-5.7) Ao Diam 3.32 cm (2.0-3.7) LVDs 4.35 cm (3.5-5.7) IVSd 0.98 cm (0.6-1.1) PWd 0.89 cm (0.6-1.1) EF (Teich) 36.40% FS 17.60% EDV (Teich) 134.20 mL ESV (Teich) 85.40 mL LV Diastology E Decel Time 137.00 (160-240 msec) E/A Ratio 1.0 MED E' 5.90 (< 7 cm/sec) E'/MED E' Ratio 11.19 (>14) LAT E' 7.20 (<10 cm/sec) E/LAT E' Ratio 9.17 (>14) Mitral Valve MV E Max Jensen. 66.00 (40-130 cm/s) MV A Velocity 63.00 (40-130 cm/s) E/A Ratio 1.05 MV Decel. Time 137.00 (160-240 ms) MV PHT 40.00 ms Left Ventricle Left atrium is mildly enlarged, left ventricle is normal size mild concentric left ventricular hypertrophy, visually estimated ejection fraction 55% with no regional wall motion abnormality, endocardial surfaces are poorly visualized, grade 1 diastolic dysfunction seen without tissue Doppler evidence of raise left atrial pressure. Right Ventricle Right atrium and right ventricle are mildly enlarged with normal contractility. Aortic Valve Aortic valve is minimally thickened and fibrosed, there is no aortic stenosis or aortic insufficiency. Mitral Valve Mitral valve is grossly normal, there is mild mitral regurgitation. Tricuspid Valve Tricuspid valve is grossly normal, there is mild tricuspid regurgitation, tricuspid regurgitation jet velocity is inadequate for calculation of the right ventricular systolic pressure. Pulmonic Valve Pulmonic valve is poorly visualized. Great Vessels Aortic root is normal size. Pericardium No significant pericardial effusion noted. Conclusion 1. Biatrial enlargement, normal left ventricular size, mild concentric left ventricular hypertrophy, visually estimated ejection fraction 55% with no regional wall motion abnormality, grade 1 diastolic dysfunction seen without tissue Doppler evidence of raise left atrial pressure. 2. Mildly enlarged right ventricle with normal contractility. 3. Mild mitral and tricuspid regurgitation. 4. No significant pericardial effusion noted. Electronically signed by : Aryan Zhu, 07/31/2020 05:47:17
== END ==
PROVIDERS: PCP Internal Medicine; Visit Provider Nurse Practitioner Family
DX: R06.09 Other forms of dyspnea (principal); E78.2 Mixed hyperlipidemia; I10 Essential (primary) hypertension; I25.10 Atherosclerotic heart disease of native coronary artery without angina pectoris; N18.30 Chronic kidney disease, stage 3 unspecified; R07.9 Chest pain, unspecified; Z95.0 Presence of cardiac pacemaker
CPT/HCPCS: 93306

== ENCOUNTER 2020-08-19 12:34 | Emergency (ER) | payer MEDICARE, SELFPAY ==
[2020-08-19 13:10] VITALS: BP 120/68; PULSE 62; RESP 20; TEMP 36.6; O2SAT 95; BMI 37.6
--- NOTE | 2020-08-19 13:27 | HMH.EDUTC ---
[facility] Disposition Clinical Impression: Bronchitis Disposition: Home, Self-Care Condition on Discharge: Good Instructions: Acute Bronchitis, DI for Acute Bronchitis Additional Instructions: follow up with pcp this week if symptoms worsen or no improvement return Start antibiotic today. Be sure to complete entire prescription even if feeling better Tylenol and ibuprofen as needed for pain or fever Humidifier/vaporizer/hot steamy shower Follow-up with primary care tomorrow. Follow-up immediately in the ER of the [facility] for new or worsening symptoms or no noticeable improvement over the next 48-72 hours. Stop smoking Inhaler/neb every 4-6 hours as needed. Should help open airways improved cough, wheezing, shortness of breath Steroids shot given today. Helps with inflammation therefore coughing and wheezing. Prescriptions: Azithromycin [Zithromax 250mg tab] 250 mg PO DIRECTED #6 tab Transmission Status: Pending to [facility] #[id number] Referrals: Fortino Jackson [Primary Care Provider] - Time of Disposition: 13:53 Medical Decision Making - Konrad Inquiry Pt receiving controlled substance: No Vital Signs: 08/19/20 13:10 Temperature 97.9 F Temperature Source Oral Pulse Rate [Left Brachial] 62 Respiratory Rate 20 Blood Pressure [Left Arm] 120/68 Blood Pressure Mean [Left Arm] 85 Blood Pressure Source [Left Arm] Automatic Cuff Blood Pressure Position [Left Arm] Sitting 02 Sat by Pulse Oximetry 95 Oxygen Delivery Method Room Air Orders (Tests/Meds): ED MEDICATIONS Discontinued Medications Generic Name Dose Route Start Last Admin Trade Name Liamq PRN Reason Stop Dose Admin Dexamethasone Sodium Phosphate 4 mg 08/19/20 13:46 Dexamethasone 4mg/Ml 1ml Vial IM 08/19/20 13:47 ONCE ONE ORDERS Category Date Time Status Chest XR 2 view (NOT portable) [XR chest 2V] Stat Exams 08/19/20 13:37 Ordered Medical Decision Narrative: pt agreed to xray but refuses any other treatment or send to ed. or poss admit [facility] HPI - General Chief complaint: Urgent Treatment Center Stated complaint: cough, congestion, soa Time Seen by Provider: 08/19/20 13:27 Mode of Arrival: Ambulatory Source of Information: Patient, Relative Limitations: No Limitations Description of Symptoms (Recalled from Triage Doc. by RN): PATIENT C/O COUGH AND CONGESTION X 1 WEEK HEENT Symptoms (Recalled from RN notes): No Resp Symptoms (Recalled from RN notes): Yes Skin Symptoms (Recalled from RN notes): No MS Symptoms (Recalled from RN notes): No Functional Status (Recalled from RN notes): WNL - History of Present Illness Provider Complaint: 75 yr old female presents for coughing up thick sputum, soa,and nasal congestion. pt denies covid exposer or to have covid test done. pt states she wants a zpak and steroid shot and go home. pt refuses any other treatment states she wants to go home with family. pt states this feels like her normal bronchitits/copd. - Related Data Home Medications Medication Instructions Recorded Confirmed Albuterol Sulfate [Ventolin HFA 1 puff IH Q4HP PRN 09/30/18 07/27/19 Inhaler] Aspirin 81 mg PO DAILY 09/30/18 07/27/19 Losartan Potassium 100 mg PO DAILY 09/30/18 07/27/19 Potassium Chloride [Klor-con 20 20 meq PO DAILY 09/30/18 07/27/19 mEq tablet] acetaminophen 500 mg tablet 500 mg PO Q6H PRN 11/08/18 07/27/19 bisoprolol fumarate 10 mg tablet 10 mg PO DAILY tab 07/25/20 07/25/20 fluconazole 150 mg tablet 150 mg PO WEEKLY tab 07/25/20 07/25/20 furosemide 40 mg tablet 80 mg PO DAILY tab 07/25/20 07/25/20 tizanidine 4 mg capsule 4 mg PO HS PRN 07/25/20 07/25/20 Previous Rx's Medication Instructions Recorded Azithromycin [Zithromax 250mg 250 mg PO DIRECTED #6 tab 08/19/20 tab] Allergies Allergy/AdvReac Type Severity Reaction Status Date / Time Penicillins Allergy Verified 07/25/20 12:55 Sulfa (Sulfonamide Allergy Verified 07/25/20 12:55 Ant
--- NOTE | 2020-08-19 13:37 | XR_ITS ---
PROCEDURE: XR CHEST 2V CLINICAL HISTORY: COUGH Cough and congestion COMPARISON: CR CXR1VP XR chest portable from 09/30/2018 CR CXR2V XR chest 2V from 12/23/2018 CR CXR1VP XR chest portable from 12/23/2018 FINDINGS: There is borderline cardiomegaly without failure. Bipolar pacemaker is present from left subclavian approach. There are chronic changes in both lower lobes. Superimposed increased density is present in the right lower lobe medially may be due to atelectasis or infiltrate.. No acute bony findings. IMPRESSION: Chronic changes with right lower lobe pneumonia. Increased density lower lung zone posteriorly on the lateral view which may be due to some scarring. Suggest follow-up to confirm stability Dictated by: Manuel Nice MD 08/20/2020 05:26 Manuel Nice MD in [place] 08/20/2020 05:26
[2020-08-19 13:58] VITALS: BP 120/68; PULSE 62; RESP 20; TEMP 36.6; O2SAT 95
== END 2020-08-19 14:08 | disposition home or self-care (01) ==
PROVIDERS: Emergency Provider Nurse Practitioner Family; PCP Internal Medicine
DX: J20.9 Acute bronchitis, unspecified (principal); J44.0 Chronic obstructive pulmonary disease with (acute) lower respiratory infection; I10 Essential (primary) hypertension; I25.10 Atherosclerotic heart disease of native coronary artery without angina pectoris; Z95.0 Presence of cardiac pacemaker; Z79.899 Other long term (current) drug therapy
CPT/HCPCS: G0463; 71046; 96372; 99202

== ENCOUNTER → 2021-02-22 14:51 | Outpatient (CLI) | payer MEDICARE, SELFPAY ==
--- NOTE | 2021-02-22 14:56 | XR_ITS ---
PROCEDURE: XR WRIST RT MIN 3V CLINICAL INDICATION: RT WRIST PAIN/SWELLING COMPARISON: No exams were available for comparison FINDINGS: No fracture or dislocation. No lytic or blastic change. There is normal mineralization. Mild osteoarthritic changes are present at the 1st metacarpal-carpal joint. There is generalized osteopenia. Other findings:None. 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
== END ==
PROVIDERS: PCP Internal Medicine; Visit Provider Internal Medicine
DX: M25.531 Pain in right wrist (principal); M25.431 Effusion, right wrist
CPT/HCPCS: 73110

== ENCOUNTER → 2021-06-24 12:02 | Outpatient (CLI) | payer MEDICARE, SELFPAY | PROVIDERS: Visit Provider Ophthalmology | DX: Z01.812 Encounter for preprocedural laboratory examination (principal); Z11.52 Encounter for screening for COVID-19 | CPT/HCPCS: C9803; U0003; U0005 ==

== ENCOUNTER 2021-06-25 06:27 | Day surgery (SDC) | payer MEDICARE, SELFPAY ==
[2021-06-25 06:50] VITALS: BP 139/94; PULSE 60; RESP 20; TEMP 36.3; O2SAT 93; BMI 40.1
[2021-06-25 07:57] VITALS: BP 127/65; PULSE 62; RESP 22; O2SAT 97
[2021-06-25 08:02] VITALS: BP 138/64; PULSE 60; RESP 20; O2SAT 98
[2021-06-25 08:07] VITALS: BP 144/65; PULSE 60; RESP 20; O2SAT 100
[2021-06-25 08:12] VITALS: BP 145/65; PULSE 60; RESP 20; O2SAT 100
[2021-06-25 08:15] VITALS: BP 135/58; PULSE 88; RESP 20; TEMP 36.7; O2SAT 96
== END 2021-06-25 08:35 | disposition home or self-care (01) ==
LOC: OR 06:30
PROVIDERS: PCP Internal Medicine; Visit Provider Ophthalmology
DX: H25.813 Combined forms of age-related cataract, bilateral (principal); H53.149 Visual discomfort, unspecified; H02.831 Dermatochalasis of right upper eyelid; H02.834 Dermatochalasis of left upper eyelid; F41.9 Anxiety disorder, unspecified; J44.9 Chronic obstructive pulmonary disease, unspecified; I10 Essential (primary) hypertension; E78.5 Hyperlipidemia, unspecified; I25.10 Atherosclerotic heart disease of native coronary artery without angina pectoris; Z90.49 Acquired absence of other specified parts of digestive tract; Z95.0 Presence of cardiac pacemaker; Z87.891 Personal history of nicotine dependence; Z88.0 Allergy status to penicillin; Z88.2 Allergy status to sulfonamides; Z79.899 Other long term (current) drug therapy
CPT/HCPCS: 66984; V2632

== ENCOUNTER → 2021-09-23 15:14 | Outpatient (CLI) | payer MEDICARE, SELFPAY ==
--- NOTE | 2021-09-23 15:25 | XR_ITS ---
FINAL REPORT CLINICAL HISTORY: EDEMA,SOB,COPD COMPARISON: August 19, 2020 FINDINGS: Two views of the chest were obtained. Cardiomegaly is noted. There is a left subclavian ICD. The mediastinum is normal. There are worsening bibasilar pulmonary opacities. There is no pneumothorax. The bony thorax is intact. IMPRESSION: Worsening bibasilar pulmonary opacities could represent atelectasis or pneumonia. Reviewed, Interpreted and Dictated by Amando Bowden III, MD Transcribed by Delgado Oglesby Authenticated by Amando Bowden III, MD on 09/23/2021 04:12:36 PM [facility]
== END ==
PROVIDERS: PCP Internal Medicine; Visit Provider Internal Medicine
DX: R06.02 Shortness of breath (principal); J44.9 Chronic obstructive pulmonary disease, unspecified; R60.9 Edema, unspecified
CPT/HCPCS: 71046

== ENCOUNTER → 2021-10-02 16:17 | Outpatient (CLI) | payer MEDICARE, SELFPAY ==
[2021-10-02 18:05] LABS: Basophils % 0.5 % (0.1-2.0); Eosinophils # 0.2 K/mm3 (0.0-0.4); Eosinophils % 2.4 % (0.1-12.0); Hemoglobin 15.2 g/dL (12.2-16.2); Lymphocytes # 2.6 K/mm3 (0.7-4.5); Lymphocytes % 32.4 % (10-50); Mean Corpuscular HGB Conc 31.6 g/dL (31.8-35.4); Mean Corpuscular Hemoglobin 30.3 pg (27.0-31.2); Mean Platelet Volume 8.5 fl (7.4-10.4); Monocytes # 0.9 K/mm3 (0.1-1.0); Monocytes % 10.7 % (1.7-9.3); Neutrophils # 4.3 K/mm3 (1.8-7.8); Platelet Count 268 K/mm3 (142-424); Red Cell Distribution Width 13.7 % (11.5-17.5)
[2021-10-02 19:08] LABS: Alanine Aminotransferase 10 U/L (12-78); Albumin Level 3.7 g/dl (3.5-5.0); Albumin/Globulin Ratio 1.2 (1.1-1.8); Alkaline Phosphatase 99 U/L (38-126); Anion Gap 11.4 mEq/L (5-15); Aspartate Amino Transferase 26 U/L (14-36); Bilirubin,Total 0.6 mg/dl (0.2-1.3); Blood Urea Nitrogen 36 mg/dl (7-17); Calcium 9.1 mg/dl (8.4-10.2); Carbon Dioxide 35 mmol/L (22.0-30.0); Chloride 99 mmol/L (98-107); Chol/HDL Ratio 4.3 (1-3.5); Cholesterol 177 mg/dl (140-200); Estimated Glomerular Filt Rate 48 ml/min (>60); GFR (African American) 58 ML/MIN (>60); Glucose 91 mg/dl (74-100); HDL Cholesterol 41 mg/dl (40-60); Potassium 4.4 mmoL/L (3.5-5.1); Sodium 141 mmol/L (136-145); Total Protein,Serum 6.7 g/dl (6.3-8.2); Triglycerides 132 mg/dl (30-150); VLDL Cholesterol 26 mg/dL (0-40)
[2021-10-02 19:20] LABS: Direct LDL Cholesterol 118.63 mg/dL (100-129)
== END ==
PROVIDERS: Visit Provider Internal Medicine
DX: I25.10 Atherosclerotic heart disease of native coronary artery without angina pectoris (principal); I11.0 Hypertensive heart disease with heart failure; I50.33 Acute on chronic diastolic (congestive) heart failure; I87.2 Venous insufficiency (chronic) (peripheral); E78.5 Hyperlipidemia, unspecified; M15.0 Primary generalized (osteo)arthritis
CPT/HCPCS: 80053; 80061; 85025

== ENCOUNTER → 2021-11-06 12:36 | Outpatient (CLI) | payer MEDICARE, SELFPAY ==
--- NOTE | 2021-11-06 12:49 | CA_ITS ---
FINAL REPORT CLINICAL HISTORY: .TIA FINDINGS: An ultrasound of the carotid arteries was performed. Duplex Doppler evaluation with spectral analysis was performed. The peak systolic velocity of the right common carotid artery is 132 cm/s. The peak systolic velocity of the right internal carotid artery is 67 cm/s and end diastolic velocity 15 cm/s. A small amount of plaque is present. The right external carotid artery is patent. The right vertebral artery is patent with antegrade flow. ICA/CCA ratio: 0.50 The peak systolic velocity of the left common carotid artery is 62 cm/s. The peak systolic velocity of the left internal carotid artery is 65 cm/s and end diastolic velocity 14 cm/s. A small amount of plaque is present. The left external carotid artery is patent. The left vertebral artery is patent with antegrade flow. ICA/CCA ratio: 1.05 Less than 50% bilateral carotid stenoses. Bilateral patent vertebral arteries with antegrade flow. Reviewed, Interpreted and Dictated by Curtis Cardoso MD Transcribed by Delgado Oglesby Authenticated by Curtis Cardoso MD on 11/06/2021 02:04:15 PM [facility]
--- NOTE | 2021-11-06 13:28 | CT_ITS ---
FINAL REPORT TECHNIQUE: Axial images were performed through the brain. This study was performed with techniques to keep radiation doses as low as reasonably achievable, (ALARA). Individualized dose reduction techniques using automated exposure control or adjustment of mA and/or kV according to the patient''s size were employed. CLINICAL HISTORY: TIA FINDINGS: There is mild cortical atrophy. The ventricles are normal in size for the degree of atrophy. There is no extra-axial fluid or midline shift. There is no evidence of acute hemorrhage, mass effect, or edema. The paranasal sinuses are well aerated. IMPRESSION: Mild atrophy. No acute intracranial process. Reviewed, Interpreted and Dictated by Curtis Cardoso MD Transcribed by Mague Pinto Authenticated by Curtis Cardoso MD on 11/06/2021 03:23:25 PM [facility]
== END ==
PROVIDERS: PCP Internal Medicine; Visit Provider Internal Medicine
DX: G45.8 Other transient cerebral ischemic attacks and related syndromes (principal)
CPT/HCPCS: 70450; 93880

== ENCOUNTER → 2022-01-24 14:55 | Outpatient (CLI) | payer MEDICARE, SELFPAY ==
--- NOTE | 2022-01-24 14:59 | XR_ITS ---
FINAL REPORT CLINICAL HISTORY: FEVER, COUGH, pacemaker COMPARISON: September 23, 2021 FINDINGS: Two views of the chest were obtained. There is a left-sided subclavian pacemaker noted. The heart size and pulmonary vascularity are within normal limits. The mediastinum is normal. There are persistent bibasilar opacities, may represent atelectasis or scarring. There is no pneumothorax. The bony thorax is intact. IMPRESSION: Persistent bibasilar opacities may represent atelectasis or scarring. Reviewed, Interpreted and Dictated by Amando Bowden III, MD Transcribed by Luba Green Authenticated and [facility]
== END ==
PROVIDERS: PCP Internal Medicine; Visit Provider Internal Medicine
DX: R50.9 Fever, unspecified (principal); R05.9 Cough, unspecified; J44.1 Chronic obstructive pulmonary disease with (acute) exacerbation
CPT/HCPCS: 71046

== ENCOUNTER 2022-03-05 07:40 | Emergency (ER) | payer MEDICARE, SELFPAY ==
[2022-03-05] VITALS (7 sets, daily range): BP systolic 103–145; BP diastolic 43–94; PULSE 60–62; RESP 19–24; TEMP 36.7; O2SAT 94–99; BMI 43.0
--- NOTE | 2022-03-05 07:45 | ECG_ITS ---
APPROVED REPORT Exam: Resting ECG HR:60 bpm ECG Measurements Heart Rate 60 AXES OK 152 P 178 QRSd 93 QRS 23 QT 388 T 37 QTc 388 Conclusion ELECTRONIC ATRIAL PACEMAKER INCOMPLETE RIGHT BUNDLE BRANCH BLOCK [90+ ms QRS DURATION, TERMINAL R IN V1/V2, 40+ ms S IN I/aVL/V4/V5/V6] ABNORMAL RHYTHM ECG UNCONFIRMED REPORT Electronically signed by : Sandor So MD 03/05/2022 21:01:21
[2022-03-05 07:52] LABS: Microscopic, Urine URINE MICROSCOPIC (MICROSCOPIC)
[2022-03-05 07:54] LABS: Appearance,Urine CLEAR (Clear); Bilirubin,Urine Negative (Negative); Blood, Urine Negative (Negative); Color,Urine YELLOW (Yellow); Glucose,Urine (UA) Negative (Negative); Ketones,Urine Negative (Negative); Leukocyte Esterase,Urine TRACE (Negative); Nitrate,Urine Negative (Negative); PH,Urine 5.5 (5.0-8.5); Protein,Urine Negative (Negative); Specific Gravity, Urine 1.015 (1.005-1.030); Urobilinogen,Urine 0.2 EU/dl (0.2)
[2022-03-05 08:02] LABS: Basophils % 0.4 % (0.1-2.0); Eosinophils # 0.1 K/mm3 (0.0-0.4); Eosinophils % 1.5 % (0.1-12.0); Hematocrit 42.2 % (37.0-47.0); Lymphocytes # 1.8 K/mm3 (0.7-4.5); Lymphocytes % 20.2 % (10-50); Mean Corpuscular HGB Conc 33.2 g/dL (31.8-35.4); Mean Corpuscular Hemoglobin 31.2 pg (27.0-31.2); Mean Platelet Volume 7.6 fl (7.4-10.4); Monocytes # 0.7 K/mm3 (0.1-1.0); Monocytes % 7.7 % (1.7-9.3); Neutrophils # 6.3 K/mm3 (1.8-7.8); Neutrophils % 70.1 % (37.0-80.0); Platelet Count 286 K/mm3 (142-424); Red Blood Count 4.49 M/mm3 (4.20-5.40); Red Cell Distribution Width 13.3 % (11.5-17.5)
--- NOTE | 2022-03-05 08:03 | XR_ITS ---
FINAL REPORT CLINICAL HISTORY: soa COMPARISON: 01/24/2022 FINDINGS: A single portable view of the chest was obtained. A left subclavian pacemaker is present. Cardiomegaly is noted. The mediastinum is within normal limits. There is bibasilar opacity which may represent atelectasis or pneumonia. The bony thorax is intact. IMPRESSION: No significant change in bibasilar atelectasis or pneumonia. Reviewed, Interpreted and Dictated by Amando Bowden III, MD Transcribed by Chaur Beck Authenticated and [facility]
--- NOTE | 2022-03-05 08:03 | PC.NURSE ---
SHA NOTIFIED OF XRAY ORDER, SPOKE WITH LOLI
[2022-03-05 08:08] LABS: Alanine Aminotransferase 20 U/L (12-78); Albumin Level 3.6 g/dl (3.5-5.0); Alkaline Phosphatase 140 U/L (38-126); Anion Gap 8.4 mEq/L (5-15); Aspartate Amino Transferase 27 U/L (14-36); Bilirubin,Total 0.5 mg/dl (0.2-1.3); Blood Urea Nitrogen 19 mg/dl (7-17); Carbon Dioxide 33 mmol/L (22.0-30.0); Chloride 98 mmol/L (98-107); Creatinine Clearance Estimated 34 mL/min (50-200); Estimated Glomerular Filt Rate 54 ml/min (>60); GFR (African American) 65 ML/MIN (>60); Globulin 3.7 g/dL (1.3-3.2); Glucose 123 mg/dl (74-100); Potassium 4.4 mmoL/L (3.5-5.1); Sodium 135 mmol/L (136-145); Total Protein,Serum 7.3 g/dl (6.3-8.2)
--- NOTE | 2022-03-05 08:08 | PC.NURSE ---
ED MD AT BEDSIDE FOR EVALUATION
[2022-03-05 08:11] LABS: Bacteria,Urine Trace /lpf; WBC,Urine Occasional #/hpf (0-3)
--- NOTE | 2022-03-05 08:12 | PC.NURSE ---
XR AT BEDSIDE
[2022-03-05 08:20] LABS: Troponin I < 0.01 ng/ml (0.00-0.034)
--- NOTE | 2022-03-05 08:25 | PC.NURSE ---
PT MEDICATED AT THIS TIME PER EMAR. PT WITHOUT NEEDS AT THIS TIME. FAMILY AT BEDSIDE
--- NOTE | 2022-03-05 08:25 | PC.NURSE ---
pt getting a NEB treatment at this time
[2022-03-05 08:26] LABS: Coronavirus 19, PCR Not Detected (NotDetected); Influenza A, PCR Not Detected (NotDetected); Influenza B, PCR Not Detected (NotDetected)
--- NOTE | 2022-03-05 08:30 | HMH.EDGENADL ---
ED Disposition Clinical Impression: Atypical pneumonia COPD (chronic obstructive pulmonary disease) Qualifiers: COPD type: COPD with acute exacerbation Qualified Code(s): J44.1 - Chronic obstructive pulmonary disease with (acute) exacerbation Disposition: Home, Self-Care Condition on Discharge: Good Instructions: Chronic Obstructive Pulmonary Disease Prescriptions: Doxycycline Monohydrate [Doxycycline [place] 100mg Tab] 100 mg PO Q12 #20 tab Transmission Status: Pending to [facility] # methylPREDNISolone [Medrol 4mg tab] 4 mg PO DIRECTED #21 tab Transmission Status: Pending to [facility] # Referrals: Fortino Jackson MD [Primary Care Provider] - - Critical Care Critical Care Time: No Attestation: On 03/05/22, the high probability of a clinically significant, sudden or life threatening deterioration of the following system(s) required my full and direct attention, intervention and personal management. The time I documented below is in addition to time spent performing reported procedures but includes the following listed in this critical care notation. Medical Decision Making - Medical Records Medical records reviewed: Yes: I reviewed the patient's medical records. - Konrad Inquiry Pt receiving controlled substance: Yes Konrad was queried for this patient: Yes Reference #:: [id number] Risks and benefits of using a controlled substance: were discussed with pt by me Vital Signs: 03/05/22 07:41 03/05/22 08:18 03/05/22 08:50 Temperature 98.1 F Temperature Source Oral Pulse Rate 60 60 Pulse Rate [Brachial] 60 Respiratory Rate 24 21 Blood Pressure 125/43 L 103/54 L Blood Pressure [Right Arm] 145/94 H Blood Pressure Mean 70 63 Blood Pressure Mean [Right Arm] 111 Blood Pressure Source [Right Arm] Automatic Cuff Blood Pressure Position [Right Arm] Sitting 02 Sat by Pulse Oximetry 95 94 L 97 Oxygen Delivery Method Room Air Room Air Nasal Cannula Oxygen Flow Rate (LPM) 2 03/05/22 09:19 03/05/22 09:47 Temperature Temperature Source Pulse Rate 62 60 Pulse Rate [Brachial] Respiratory Rate 21 22 Blood Pressure 108/46 L 116/46 L Blood Pressure [Right Arm] Blood Pressure Mean 53 55 Blood Pressure Mean [Right Arm] Blood Pressure Source [Right Arm] Blood Pressure Position [Right Arm] 02 Sat by Pulse Oximetry 96 99 Oxygen Delivery Method Nasal Cannula Nasal Cannula Oxygen Flow Rate (LPM) 2 2 - Lab Data Lab Results 03/05/22 07:47: Urine Color Yellow, Urine Appearance Clear, Urine pH 5.5, Ur Specific [place] 1.015, Urine Protein Negative, Urine Glucose (UA) Negative, Urine Ketones Negative, Urine Blood Negative, Urine Nitrate Negative, Urine Bilirubin Negative, Urine Urobilinogen 0.2, Ur Leukocyte Esterase Trace, Urine RBC None, Urine WBC Occasional, Ur Squamous Epith Cells 3-5, Urine Bacteria Trace 03/05/22 07:53: WBC 9.0, RBC 4.49, Hgb 14.0, Hct 42.2, MCV 94.0, MCH 31.2, MCHC 33.2, RDW 13.3, Plt Count 286, MPV 7.6, Neut % (Auto) 70.1, Lymph % (Auto) 20.2, [place] % (Auto) 7.7, Eos % (Auto) 1.5, Baso % (Auto) 0.4, Neut # (Auto) 6.3, Lymph # (Auto) 1.8, [place] # (Auto) 0.7, Eos # (Auto) 0.1, Baso # (Auto) 0.0 03/05/22 07:53: Sodium 135 L, Potassium 4.4, Chloride 98, Carbon Dioxide 33 H, Anion Gap 8.4, BUN 19 H, Creatinine 1.00, Estimated Creat Clear 34, Estimated GFR 54 L, Est GFR ( Amer) 65, Glucose 123 H, Calcium 9.0, Total Bilirubin 0.5, AST 27, ALT 20, Alkaline Phosphatase 140 H, Troponin I < 0.01, Total Protein 7.3, Albumin 3.6, Globulin 3.7 H, Albumin/Globulin Ratio 1.0 L 03/05/22 07:53: NT-Pro-B Natriuret Pep 317 03/05/22 08:19: SARS-CoV-2 (PCR) Not detected, Influenza A Untype (PCR) Not detected, Influenza Type B (PCR) Not detected Result diagrams: 03/05/22 07:53 03/05/22 07:53 Orders (Tests/Meds): ED MEDICATIONS Discontinued Medications Generic Name Dose Route Start Last Admin Trade Name Freq PRN Reason Stop Dose Admin
[2022-03-05 08:43] LABS: NT Pro Brain Natriuretic Pep. 317 pg/mL (0-450)
--- NOTE | 2022-03-05 09:05 | PC.NURSE ---
pts o2 saturation was at 84% RA; placed patient on 2 liters of o2 at this time and her oxygen is now 94%; ER MD aware
--- NOTE | 2022-03-05 09:23 | PC.NURSE ---
Patient called out to be repositioned in the bed. Trish Landaverde and Chirag went into the room and helped the reposition pt.
--- NOTE | 2022-03-05 10:02 | PC.NURSE ---
checked on pt at this, pt resting in bed, family at BS. Pt reports no needs at this time.
--- NOTE | 2022-03-05 10:33 | PC.NURSE ---
AT BEDSIDE TO REEVALUATE PT
--- NOTE | 2022-03-05 10:50 | PC.NURSE ---
1050 PT ASSISTED TO BR, AMBUATES WELL. NO NEEDS AT THIS TIME
== END 2022-03-05 11:18 | disposition home or self-care (01) ==
PROVIDERS: Emergency Medicine; Emergency Provider Emergency Medicine; PCP Internal Medicine
DX: J18.9 Pneumonia, unspecified organism (principal); J44.1 Chronic obstructive pulmonary disease with (acute) exacerbation; Z88.0 Allergy status to penicillin; Z88.2 Allergy status to sulfonamides; I25.10 Atherosclerotic heart disease of native coronary artery without angina pectoris; E78.5 Hyperlipidemia, unspecified; I10 Essential (primary) hypertension; M19.90 Unspecified osteoarthritis, unspecified site; N28.9 Disorder of kidney and ureter, unspecified; Z95.0 Presence of cardiac pacemaker
CPT/HCPCS: 71045; 80053; 81001; 83880; 84484; 85025; 93005; 94640; 96374; 96375; 99284; C9803; J2405; U0003; U0005

== ENCOUNTER → 2022-04-03 10:44 | Outpatient (CLI) | payer MEDICARE, SELFPAY ==
--- NOTE | 2022-04-03 10:44 | CA_ITS ---
APPROVED REPORT EXAM: Comprehensive 2D, Doppler, and color-flow Echocardiogram Transportation Economics Teacher: Lanie Narvaez, RCS, RVS Ht: 4 ft 10 in Wt: 202lbs BSA: 1.83 BP: 141/71 mmHg Indications: COPD, Pacer, HTN, HLD, Edema, Obesity, CAD 2D Dimensions LVDd 4.46 cm LVEF (Visual) 74.10 % LVDs 2.55 cm LA Volume 39.30 mL LVOT 1.98 cm (M/F) 1.5-2.5 LA Volume Index 21.50 mL/m2 (M/F) 16-34 M-Mode Dimensions RVDd 1.77 cm (0.9-2.6) LA Diam 3.87 cm (1.9-4.0) LVDd 4.80 cm (3.5-5.7) Ao Diam 3.15 cm (2.0-3.7) LVDs 3.42 cm (3.5-5.7) IVSd 1.37 cm (0.6-1.1) PWd 0.97 cm (0.6-1.1) EF (Teich) 55.30% EPSs 0.48 cm FS 28.80% EDV (Teich) 107.50 mL TAPSE 2.02 (<1.7) ESV (Teich) 48.10 mL LV Diastology E Decel Time 187.00 (160-240 msec) E/A Ratio 0.93 MED E' 5.30 (< 7 cm/sec) MED A' 8.30 cm/s E'/MED E' Ratio 13.34 (>14) LAT E' 7.10 (<10 cm/sec) LAT A' 13.70 cm/s E/LAT E' Ratio 9.96 (>14) Aortic Valve LVOT Max 108.00 (70-110 cm/s) LVOT VTI 24.76 cm AoV Peak Jensen. 143.00 (50-130 cm/s) AO Peak GR. 8.10 mmHg AO Mean GR. 4.00 (<5 mmHg) AO VTI 32.23 (18-25 cm) NJ (VTI) 2.37 (2.5-4.5 cm2) Mitral Valve MV A Velocity 76.00 (40-130 cm/s) E/A Ratio 0.93 MV Decel. Time 187.00 (160-240 ms) MV PHT 57.00 ms Pulmonary Valve PV Peak Velocity 74.00 (50-150 cm/s) Tricuspid Valve TR P. Velocity 225.00 cm/s RAP Estimate 10.00 mmHg RVSP 30.20 mmHg Left Ventricle Left atrium is mildly enlarged, left ventricle is normal size mild concentric left ventricular hypertrophy, grade 1 diastolic dysfunction seen without tissue Doppler evidence of raise left atrial pressure. Right Ventricle Right atrium and right ventricle are mildly enlarged with normal contractility, pacemaker leads in right ventricle. Aortic Valve Aortic valve is minimally thickened and calcified without aortic stenosis or aortic insufficiency. Mitral Valve Mitral valve is grossly normal, there is trace mitral regurgitation. Tricuspid Valve Tricuspid valve grossly normal, there is trace tricuspid regurgitation, tricuspid regurgitation jet velocity is inadequate for calculation of the right ventricular systolic pressure. Pulmonic Valve Pulmonic valve is poorly visualized. Great Vessels Aortic root is normal size. Inferior vena cava is poorly visualized. Pericardium No significant pericardial effusion noted. Conclusion 1. Mild biatrial enlargement, normal left ventricular size, mild concentric left ventricular hypertrophy, estimated ejection fraction 55% with no regional wall motion abnormality, grade 1 diastolic dysfunction seen without tissue Doppler evidence of raise left atrial pressure. 2. Mildly enlarged right ventricle with normal contractility. 3. Trace mitral and tricuspid regurgitation. 4. No significant pericardial effusion. 5. Inferior vena cava is poorly visualized. Electronically signed by : Aryan Zhu MD 04/04/2022 13:16:00
[2022-04-03 13:20] LABS: Chloride 102 mmol/L (98-107); Potassium 4.3 mmoL/L (3.5-5.1); Sodium 139 mmol/L (136-145)
[2022-04-03 13:23] LABS: Anion Gap 9.3 mEq/L (5-15); Blood Urea Nitrogen 25 mg/dl (7-17); Carbon Dioxide 32 mmol/L (22.0-30.0); Estimated Glomerular Filt Rate 70 ml/min (>60); GFR (African American) 84 ML/MIN (>60)
[2022-04-03 13:24] LABS: Calcium 9.3 mg/dl (8.4-10.2); Glucose 112 mg/dl (74-100)
== END ==
PROVIDERS: PCP Internal Medicine; Visit Provider Physician Assistant
DX: R06.09 Other forms of dyspnea (principal); E78.2 Mixed hyperlipidemia; I10 Essential (primary) hypertension; I25.10 Atherosclerotic heart disease of native coronary artery without angina pectoris; I47.1 Supraventricular tachycardia; N18.30 Chronic kidney disease, stage 3 unspecified; R00.2 Palpitations; Z95.0 Presence of cardiac pacemaker
CPT/HCPCS: 36415; 80048; 93306

== ENCOUNTER → 2022-04-11 13:47 | Outpatient (CLI) | payer MEDICARE, SELFPAY ==
[2022-04-11 15:37] LABS: Anion Gap 11.9 mEq/L (5-15); Blood Urea Nitrogen 23 mg/dl (7-17); Calcium 9.3 mg/dl (8.4-10.2); Carbon Dioxide 33 mmol/L (22.0-30.0); Chloride 97 mmol/L (98-107); Estimated Glomerular Filt Rate 48 ml/min (>60); GFR (African American) 58 ML/MIN (>60); Glucose 131 mg/dl (74-100); Potassium 3.9 mmoL/L (3.5-5.1); Sodium 138 mmol/L (136-145)
== END ==
PROVIDERS: PCP Internal Medicine; Visit Provider Internal Medicine
DX: R06.00 Dyspnea, unspecified (principal)
CPT/HCPCS: 36415; 80048

== ENCOUNTER 2022-05-19 07:42 | Emergency (ER) | payer MEDICARE, SELFPAY ==
[2022-05-19] VITALS (8 sets, daily range): BP systolic 110–156; BP diastolic 42–50; PULSE 60–64; RESP 18–20; TEMP 36.6; O2SAT 91–96; BMI 39.6
--- NOTE | 2022-05-19 08:07 | PC.NURSE ---
ED MD AT BEDSIDE FOR EVALUATION
--- NOTE | 2022-05-19 08:12 | HMH.EDGENADL ---
Discharge Plan Disposition Patient Disposition: Home, Self-Care Condition: Fair Chief Complaint: PAIN Prescriptions Prescriptions: No Action Trelegy Ellipta 100-62.5-25 mcg blister with device 1 inh IH DAILY furosemide 80 mg tablet 80 mg PO DAILY Rx Instructions: TAKE 1 TABLET EVERY DAY acetaminophen [Tylenol Extra Strength] 500 mg tablet 1,000 mg PO Q6H PRN (Reason: pain) tizanidine [Zanaflex] 4 mg capsule 4 mg PO HS PRN (Reason: muscle relaxer) tramadol 50 mg tablet 50 mg PO Q6H PRN (Reason: Pain) Trelegy Ellipta 100-62.5-25 mcg blister with device 1 inh inhalation DAILY 90 Days Qty: 90 3RF aspirin 81 MG tablet,chewable 81 mg PO DAILY losartan 100 MG tablet 100 mg PO DAILY fluconazole 150 MG tablet 150 mg PO WEEKLY bisoprolol fumarate 10 MG tablet 10 mg PO BID Rx Instructions: TAKE 1 TABLET TWICE DAILY fluconazole 150 mg Tablet 150 mg PO DAILY Trelegy Ellipta 100-62.5-25 mcg Blister With Device 1 inh INHALATION DAILY spironolactone [Aldactone] 25 mg tablet 25 mg PO BID Referrals Follow up/Referrals: Fortino Jackson MD [Primary Care Provider] - See instructions Activity Restrictions/Add. Instructions Additional Instructions/Restrictions: Please return to the emergency department immediately if you feel worse in any way. Follow-up with your primary care doctor in about 3 to 4 days if not better. Take all medications as prescribed. Clinical Impressions Clinical Impression: Acute leg pain Instructions Patient Instructions: DI for Chronic Pain -- Adult Discharge ED Provider: Jesus [place] Adult HPI General Chief complaint: PAIN Stated complaint: pain in Lt leg, Lt ankle, Lt shoulder Time Seen by Provider: 05/19/22 08:12 Mode of Arrival: Ambulatory Source of Information: Patient Limitations: No Limitations Description of Symptoms (Recalled from ER Triage Doc. by RN): PT REPORTS LEFT LEG PAIN AND LEFT ARM PAIN X 2 WEEKS, NO INJURY History of Present Illness HPI narrative: The patient presents to the emergency department complaining of left lower extremity as well as left upper extremity pain for the last 2 weeks. She denies any injuries to the areas. She does complain of some swelling. She states that in the past she has had blood clots. However, in reviewing her medications I do not see any anticoagulants other than aspirin. The patient denies fevers. She denies any right-sided symptoms. She also denies any neurologic deficits. Related Data Home Medications Medication Instructions Recorded Confirmed aspirin 81 mg chewable tablet 81 mg PO DAILY HEART HEALTH 09/30/18 05/19/22 losartan 100 mg tablet 100 mg PO DAILY Hypertension 09/30/18 05/19/22 acetaminophen 500 mg tablet 1,000 mg PO Q6H PRN pain 11/08/18 05/19/22 (Tylenol Extra Strength) tizanidine 4 mg capsule (Zanaflex) 4 mg PO HS PRN muscle relaxer 07/25/20 05/19/22 bisoprolol fumarate 10 mg tablet 10 mg PO BID bp 06/21/21 05/19/22 fluconazole 150 mg tablet 150 mg PO WEEKLY . 06/21/21 04/29/22 fluticasone fur. 100 mcg-umeclid 1 inh inhalation DAILY 04/01/22 04/29/22 62.5 mcg-vilant 25 mcg inhalat.powder (Trelegy Ellipta) furosemide 80 mg tablet 80 mg PO DAILY Fluid 04/01/22 05/19/22 tramadol 50 mg tablet 50 mg PO Q6H PRN Pain 04/29/22 05/19/22 fluconazole 150 mg tablet 150 mg PO DAILY yeast infection 05/19/22 05/19/22 fluticasone fur. 100 mcg-umeclid 1 inh inhalation DAILY soa 05/19/22 05/19/22 62.5 mcg-vilant 25 mcg inhalat.powder (Trelegy Ellipta) spironolactone 25 mg tablet 25 mg PO BID Edema 05/19/22 05/19/22 (Aldactone) Previous Rx's Medication Instructions Recorded fluticasone fur. 100 mcg-umeclid 1 inh inhalation DAILY 90 days #90 04/29/22 62.5 mcg-vilant 25 mcg ea inhalat.powder (Trelegy Ellipta) Allergies Allergy/AdvReac Type Severity Reaction Status Date / Time Penicillins Allergy Verified 04/29
[2022-05-19 08:27] LABS: Basophils # 0.1 K/mm3 (0-0.2); Basophils % 0.8 % (0.1-2.0); Eosinophils # 0.2 K/mm3 (0.0-0.4); Eosinophils % 1.9 % (0.1-12.0); Hematocrit 41.6 % (37.0-47.0); Hemoglobin 13.6 g/dL (12.2-16.2); Lymphocytes # 1.3 K/mm3 (0.7-4.5); Lymphocytes % 15.9 % (10-50); Mean Corpuscular HGB Conc 32.7 g/dL (31.8-35.4); Mean Corpuscular Hemoglobin 30.9 pg (27.0-31.2); Mean Corpuscular Volume 94.4 fl (81-99); Mean Platelet Volume 7.9 fl (7.4-10.4); Monocytes # 0.6 K/mm3 (0.1-1.0); Monocytes % 7.7 % (1.7-9.3); Neutrophils % 73.7 % (37.0-80.0); Platelet Count 279 K/mm3 (142-424); Red Blood Count 4.41 M/mm3 (4.20-5.40); Red Cell Distribution Width 14.1 % (11.5-17.5); White Blood Count 8.2 K/mm3 (4.8-10.8)
[2022-05-19 08:35] LABS: Chloride 101 mmol/L (98-107); Potassium 5.1 mmoL/L (3.5-5.1); Sodium 136 mmol/L (136-145)
[2022-05-19 08:38] LABS: Alanine Aminotransferase 12 U/L (12-78); Albumin Level 3.5 g/dl (3.5-5.0); Alkaline Phosphatase 108 U/L (38-126); Anion Gap 15.1 mEq/L (5-15); Aspartate Amino Transferase 24 U/L (14-36); Bilirubin,Total 0.6 mg/dl (0.2-1.3); Blood Urea Nitrogen 26 mg/dl (7-17); Calcium 8.9 mg/dl (8.4-10.2); Carbon Dioxide 25 mmol/L (22.0-30.0); Creatinine Clearance Estimated 47 mL/min (50-200); Estimated Glomerular Filt Rate 36 ml/min (>60); GFR (African American) 44 ML/MIN (>60); Globulin 3.5 g/dL (1.3-3.2); Glucose 109 mg/dl (74-100); Magnesium 1.7 mg/dl (1.6-2.3)
[2022-05-19 08:40] LABS: Activated Partial Thrombo Time 26.8 seconds (22.8-30.6); INR 0.96 (0.9-1.1); Prothrombin Time 10.4 seconds (10.1-12.5)
[2022-05-19 08:46] LABS: D-Dimer 5.53 ug/mL (0.0-0.5)
[2022-05-19 08:48] LABS: NT Pro Brain Natriuretic Pep. 673 pg/mL (0-450)
--- NOTE | 2022-05-19 08:56 | PC.NURSE ---
pt in recliner at this time r/t was not comfortable in the bed.
--- NOTE | 2022-05-19 08:58 | CA_ITS ---
FINAL REPORT TECHNIQUE: Color Doppler, duplex Doppler and compression sonography of the left lower extremity deep venous systems was performed. CLINICAL HISTORY: leg swelling, pain, and elevated D-dimer, previous DVT years ago,81 mg. Pain in the outside of leg down into the foot. FINDINGS: There is no evidence of deep venous thrombosis from the level of the groin to the calf. The veins are patent and compressible. IMPRESSION: No evidence of deep venous thrombosis left lower extremity. Reviewed, Interpreted and Dictated by Amando Bowden III, MD Transcribed by Patrizia Barrios Authenticated and [facility]
--- NOTE | 2022-05-19 09:23 | PC.NURSE ---
US AT BEDSIDE FOR DOPPLER
--- NOTE | 2022-05-19 10:05 | XR_ITS ---
FINAL REPORT CLINICAL HISTORY: left Foot pain FINDINGS: LEFT FOOT Three views of the left foot demonstrate no acute fracture or dislocation. There is mild hallux valgus deformity. There is valgus angulation of the 2nd through 5th digits. There are mild degenerative changes. There is a plantar calcaneal spur. There are small soft tissue calcifications adjacent to the calcaneal tuberosity. IMPRESSION: Mild hallux valgus deformity with valgus angulation of the 2nd through 5th digits. Mild degenerative changes with no acute bony abnormality. Reviewed, Interpreted and Dictated by Amando Bowden III, MD Transcribed by Charu Beck Authenticated and [facility]
--- NOTE | 2022-05-19 10:23 | PC.NURSE ---
pt to xr
--- NOTE | 2022-05-19 10:28 | PC.NURSE ---
pt returned from xr
--- NOTE | 2022-05-19 10:46 | PC.NURSE ---
ed md at bedside to discuss poc with pt and daughter
--- NOTE | 2022-05-19 11:40 | PC.NURSE ---
contacted rad to check on status of foot xray reading, spoke with julian reports there is preliminary report she is going to send it down. Notified DANNA VANEGAS
== END 2022-05-19 11:55 | disposition home or self-care (01) ==
PROVIDERS: Emergency Provider Emergency Medicine; PCP Internal Medicine
DX: M79.605 Pain in left leg (principal); M25.512 Pain in left shoulder; M79.602 Pain in left arm; R06.02 Shortness of breath; R79.1 Abnormal coagulation profile; I12.9 Hypertensive chronic kidney disease with stage 1 through stage 4 chronic kidney disease, or unspecified chronic kidney disease; N18.30 Chronic kidney disease, stage 3 unspecified; I25.10 Atherosclerotic heart disease of native coronary artery without angina pectoris; E78.5 Hyperlipidemia, unspecified; Z79.1 Long term (current) use of non-steroidal anti-inflammatories (NSAID); Z79.52 Long term (current) use of systemic steroids; Z79.82 Long term (current) use of aspirin; Z79.899 Other long term (current) drug therapy; Z88.0 Allergy status to penicillin; Z88.2 Allergy status to sulfonamides; Z95.0 Presence of cardiac pacemaker; Z87.891 Personal history of nicotine dependence; Z82.49 Family history of ischemic heart disease and other diseases of the circulatory system; Z80.9 Family history of malignant neoplasm, unspecified
CPT/HCPCS: 73630; 80053; 83735; 83880; 85025; 85378; 85610; 85730; 93971; 99284

== ENCOUNTER → 2022-06-17 09:08 | Outpatient (CLI) | payer MEDICARE, SELFPAY ==
--- NOTE | 2022-06-17 09:08 | CT_ITS ---
FINAL REPORT CLINICAL HISTORY: lung cancer screening. 77-year-old former smoker of 15 years with a 50-75 pack-year smoking history. FINDINGS: Low-Dose Chest CT Axial images were obtained from the lung apex to the mid abdomen by computed tomography. Low-dose protocol was utilized. CTDI vol (mGy): 2.90 DLP (mGy-cm): 97.95 A left subclavian pacemaker is present. There is no axillary adenopathy. There is no hilar or mediastinal adenopathy. There is cardiomegaly. There are moderate coronary artery calcifications. There is no pericardial or pleural effusion. Lung window images demonstrate a 2 mm nodule in the lateral right upper lobe on image 34. There are moderate changes of emphysema. There is a calcified granuloma in the lingula. Limited images of the upper abdomen are unremarkable. IMPRESSION: 2 mm lateral right upper lobe nodule. Lung RADS category 2. Recommend 12 month follow-up low-dose chest CT. Reviewed, Interpreted and Dictated by Amando Bowden III, MD Transcribed by Charu Beck Authenticated and [facility]
[2022-06-17 10:20] VITALS: PULSE 60; PULSE 64
== END ==
PROVIDERS: PCP Internal Medicine; Visit Provider Internal Medicine Pulmonary Disease
DX: Z87.891 Personal history of nicotine dependence (principal); Z12.2 Encounter for screening for malignant neoplasm of respiratory organs; R06.09 Other forms of dyspnea
CPT/HCPCS: 71271; 94060; 94618; 94640; 94727; 94729

== ENCOUNTER → 2022-07-02 13:58 | Outpatient (CLI) | payer MEDICARE, SELFPAY | PROVIDERS: PCP Internal Medicine; Visit Provider Internal Medicine Pulmonary Disease | DX: R06.02 Shortness of breath (principal) | CPT/HCPCS: 94762 ==

== ENCOUNTER → 2022-08-25 15:58 | Outpatient (CLI) | payer MEDICARE, SELFPAY ==
[2022-08-25 16:28] LABS: Basophils # 0.1 K/mm3 (0-0.2); Basophils % 0.9 % (0.1-2.0); Eosinophils # 0.2 K/mm3 (0.0-0.4); Eosinophils % 2.5 % (0.1-12.0); Lymphocytes % 23.3 % (10-50); Mean Corpuscular Hemoglobin 29.3 pg (27.0-31.2); Mean Corpuscular Volume 94.7 fl (81-99); Mean Platelet Volume 8.2 fl (7.4-10.4); Monocytes # 0.9 K/mm3 (0.1-1.0); Monocytes % 10.2 % (1.7-9.3); Neutrophils # 5.4 K/mm3 (1.8-7.8); Neutrophils % 63.1 % (37.0-80.0); Platelet Count 442 K/mm3 (142-424); Red Blood Count 4.43 M/mm3 (4.20-5.40); Red Cell Distribution Width 14.2 % (11.5-17.5); White Blood Count 8.6 K/mm3 (4.8-10.8)
[2022-08-25 17:12] LABS: Anion Gap 12.5 mEq/L (5-15); Blood Urea Nitrogen 20 mg/dl (7-17); Calcium 9.1 mg/dl (8.4-10.2); Carbon Dioxide 27 mmol/L (22.0-30.0); Chloride 104 mmol/L (98-107); Creatine Kinase 62 U/L (30-135); Estimated Glomerular Filt Rate 54 ml/min (>60); GFR (African American) 65 ML/MIN (>60); Glucose 91 mg/dl (74-100); Potassium 4.5 mmoL/L (3.5-5.1); Sodium 139 mmol/L (136-145)
[2022-08-25 17:42] LABS: Thyroid Stimulating Hormone 1.35 uIU/mL (0.465-4.68)
[2022-08-25 17:59] LABS: Erythrocyte Sedimentation Rate 89 mm/hr (0-30)
== END ==
PROVIDERS: PCP Internal Medicine; Visit Provider Internal Medicine
DX: M79.10 Myalgia, unspecified site (principal); M54.32 Sciatica, left side
CPT/HCPCS: 80048; 82550; 84443; 85025; 85651

== ENCOUNTER → 2022-09-19 14:54 | Outpatient (CLI) | payer MEDICARE, SELFPAY ==
--- NOTE | 2022-09-19 14:58 | CT_ITS ---
FINAL REPORT CLINICAL HISTORY: SCIATICA FINDINGS: Axial imaging of the lumbar spine was obtained without contrast. Sagittal and coronal reformatted images were also obtained and reviewed.This study was performed with techniques to keep radiation doses as low as reasonably achievable (ALARA). Individualized dose reduction techniques using automated exposure control or adjustment of mA and/or kV according to the patient's size were employed. There is no fracture. There is mild leftward curvature. The vertebral alignment is normal. There is multilevel degenerative change with vacuum disc phenomenon at multiple levels. There is no evidence of significant central canal stenosis. L1-2: An annular disc bulge is present. L2-3: There is an annular disc bulge with facet arthropathy and vertebral osteophytes. There is mild bilateral neuroforaminal narrowing. L3-4: There is an annular disc bulge with facet arthropathy and vertebral osteophytes. There is mild bilateral neuroforaminal narrowing. L4-5: There is an annular disc bulge with facet arthropathy and vertebral osteophytes. There is mild right and moderate left neuroforaminal narrowing. L5-S1: There is an annular disc bulge with facet arthropathy and vertebral osteophytes. There is mild right and moderate left neuroforaminal narrowing. There are mild degenerative changes of the SI joints. IMPRESSION: Multilevel degenerative change without acute bony abnormality. Reviewed, Interpreted and Dictated by Amando Bowden III, MD Transcribed by Charu Beck Authenticated and . [facility]
== END ==
PROVIDERS: PCP Internal Medicine; Visit Provider Internal Medicine
DX: M54.32 Sciatica, left side (principal); M79.10 Myalgia, unspecified site
CPT/HCPCS: 72131

== ENCOUNTER → 2022-09-30 09:45 | Outpatient (POV) | payer MEDICARE, SELFPAY ==
[2022-09-30 09:50] VITALS: BP 114/48; PULSE 62; RESP 20; TEMP 36.2; O2SAT 96; BMI 35.2
--- NOTE | 2022-09-30 11:21 | EXP.PAIN.OV ---
HPI Data of Consult Patient: new to practice Consult date: 09/30/22 Requesting Physician: Compa Vogt CRNA Primary Care Provider: Fortino Jackson MD Consult Narrative Reason for consult: Lumbar back pain. Left hip and leg radicular symptoms. History of present illness: Ms. Burns is a 77 year old female who presents to our clinic today for initial evaluation regarding chronic low back pain she describes as constant, dull, aching. She rates her low back pain 7/10. Patient also complains of left hip and leg radicular symptoms. Patient is currently taking hydrocodone 5 mg 1 p.o. daily. Patient states pain medication does decrease her pain by 50%. This prescription comes from her PCP. I reviewed the patient's lumbar CT scan with her. CT scan shows multilevel degenerative disc lumbar spine. Disc bulge multilevel lumbar spine. CC: Compa Vogt CRNA [facility] Disclaimer: The information contained in this section may have been updated after the patient was seen, as this information can be updated by other users. Medical History Abnormality of lung on chest x-ray Asthma-chronic obstructive pulmonary disease overlap syndrome Atypical chest pain CAD (coronary artery disease) Cardiac pacemaker in situ CKD (chronic kidney disease) stage 3, GFR 30-59 ml/min Dyspnea Dyspnea on exertion Dyspnea on exertion Exercise hypoxemia Hyperlipidemia Hypertension Nodule of right lung Palpitations Screening for lung cancer SOB (shortness of breath) Stopped smoking with greater than 30 pack year history Surgical History History of permanent cardiac pacemaker placement Family History Other Cancer Heart attack Stroke Social History (Updated 09/30/22 @ 10:07 by Megan Zepeda RN) Smoking Status: Former smoker pack-years: 50 second hand exposure: No alcohol intake: never substance use type: denies use current occupational status: other Travel in the last 8 weeks: None household members: none housing: house current occupational exposures/hazards: No caffeine: Yes Meds Home Medications and Allergies Home Medications Medication Instructions Recorded Confirmed Type aspirin 81 mg chewable tablet 81 mg PO DAILY HEART HEALTH 09/30/18 09/30/22 History losartan 100 mg tablet 100 mg PO DAILY Hypertension 09/30/18 09/30/22 History acetaminophen 500 mg tablet 1,000 mg PO Q6H PRN pain 11/08/18 09/30/22 History (Tylenol Extra Strength) tizanidine 4 mg capsule (Zanaflex) 4 mg PO HS PRN muscle relaxer 07/25/20 09/30/22 History fluconazole 150 mg tablet 150 mg PO WEEKLY . 06/21/21 09/30/22 History fluticasone fur. 100 mcg-umeclid 1 inh inhalation DAILY COPD 04/01/22 09/30/22 History 62.5 mcg-vilant 25 mcg inhalat.powder (Trelegy Ellipta) furosemide 80 mg tablet 80 mg PO DAILY Fluid 04/01/22 09/30/22 History tramadol 50 mg tablet 50 mg PO Q6H PRN Pain 04/29/22 09/30/22 History spironolactone 25 mg tablet 25 mg PO BID Edema #180 tabs 06/04/22 09/30/22 Rx (Aldactone) albuterol sulfate 90 mcg/actuation 2 puff inhalation ONCE PRN COPD 07/02/22 09/30/22 History aerosol inhaler bisoprolol fumarate 10 mg tablet 10 mg PO BID bp #180 tabs 08/05/22 09/30/22 Rx New Prescriptions to Start Prescriptions: Allergies Allergy/AdvReac Type Severity Reaction Status Date / Time Penicillins Allergy Verified 07/02/22 13: Sulfa (Sulfonamide Allergy Verified 07/02/22 13: Antibiotics) Objective Vital signs: Temp Pulse Resp BP Pulse Ox 97.2 F L 62 20 114/48 L 96 09/30/22 09:50 09/30/22 09:50 09/30/22 09:50 09/30/22 09:50 09/30/22 09:50 Narrative: Patient is awake alert [place] x3. In no acute distress. Patient presents in a wheelchair today due to the distance to our clinic from the parking lot. Otherwise, patient states she is ambulatory for short distances and whi
== END ==
PROVIDERS: PCP Internal Medicine; Visit Provider Nurse Anesthetist, Certified Registered
DX: M51.16 Intervertebral disc disorders with radiculopathy, lumbar region (principal)
CPT/HCPCS: 99202; G0463

== ENCOUNTER → 2023-01-02 15:01 | Outpatient (CLI) | payer MEDICARE, SELFPAY | PROVIDERS: PCP Internal Medicine; Visit Provider Internal Medicine Pulmonary Disease | DX: R06.02 Shortness of breath (principal) | CPT/HCPCS: 94762 ==

== ENCOUNTER → 2023-01-30 16:53 | Outpatient (CLI) | payer MEDICARE, SELFPAY ==
[2023-01-30 18:35] LABS: Chloride 98 mmol/L (98-107)
[2023-01-30 18:36] LABS: Potassium 5.8 mmoL/L (3.5-5.1); Sodium 134 mmol/L (136-145)
[2023-01-30 18:39] LABS: Anion Gap 16.8 mEq/L (5-15); Blood Urea Nitrogen 37 mg/dl (7-17); Carbon Dioxide 25 mmol/L (22.0-30.0); Estimated Glomerular Filt Rate 34 ml/min (>60); GFR (African American) 41 ML/MIN (>60); Glucose 82 mg/dl (74-100)
== END ==
PROVIDERS: PCP Internal Medicine; Visit Provider Internal Medicine
DX: R60.9 Edema, unspecified (principal); I50.32 Chronic diastolic (congestive) heart failure; I87.2 Venous insufficiency (chronic) (peripheral); I27.81 Cor pulmonale (chronic)
CPT/HCPCS: 80048

== ENCOUNTER → 2023-02-19 13:58 | Outpatient (CLI) | payer MEDICARE, SELFPAY | PROVIDERS: PCP Internal Medicine; Visit Provider Internal Medicine Pulmonary Disease | DX: G47.30 Sleep apnea, unspecified (principal); R06.02 Shortness of breath | CPT/HCPCS: 94762 ==

== ENCOUNTER → 2023-04-24 13:53 | Outpatient (CLI) | payer MEDICARE, SELFPAY | PROVIDERS: PCP Internal Medicine; Visit Provider Internal Medicine Pulmonary Disease | DX: G47.30 Sleep apnea, unspecified (principal) | CPT/HCPCS: 94762 ==

== ENCOUNTER → 2023-05-15 15:02 | Outpatient (CLI) | payer MEDICARE, SELFPAY | PROVIDERS: PCP Internal Medicine; Visit Provider Internal Medicine Pulmonary Disease | DX: G47.30 Sleep apnea, unspecified (principal) | CPT/HCPCS: 94762 ==

== ENCOUNTER → 2023-06-19 14:15 | Outpatient (CLI) | payer MEDICARE, SELFPAY | PROVIDERS: PCP Internal Medicine; Visit Provider Internal Medicine Pulmonary Disease | DX: R06.02 Shortness of breath (principal) | CPT/HCPCS: 94762 ==

== ENCOUNTER 2023-09-03 13:07 | Emergency (ER) | payer MEDICARE, SELFPAY ==
[2023-09-03 13:07] VITALS: BP 136/61; PULSE 61; RESP 20; TEMP 36.7; O2SAT 93; BMI 40.4
--- NOTE | 2023-09-03 13:10 | ED_ITS ---
Discharge Plan Disposition Patient Disposition: Home, Self-Care Prescriptions Prescriptions: No Action Trelegy Ellipta 100-62.5-25 mcg blister with device 1 inh IH DAILY furosemide 80 mg tablet 80 mg PO DAILY Rx Instructions: TAKE 1 TABLET EVERY DAY albuterol sulfate 90 mcg/actuation HFA aerosol inhaler 2 puff inhalation ONCE PRN (Reason: COPD) hydrocodone-acetaminophen 5-325 mg tablet 1 tab PO Q4-6H PRN acetaminophen [Tylenol Extra Strength] 500 mg tablet 1,000 mg PO Q6H PRN (Reason: pain) tizanidine [Zanaflex] 4 mg capsule 4 mg PO HS PRN (Reason: muscle relaxer) tramadol 50 mg tablet 50 mg PO Q6H PRN (Reason: Pain) spironolactone 25 mg tablet See Rx Instructions .ROUTE .COMPLEX Qty: 180 1RF Dose Instruction: TAKE 1 TABLET TWICE DAILY FOR EDEMA Rx Instructions: TAKE 1 TABLET TWICE DAILY FOR EDEMA Trelegy Ellipta 100-62.5-25 mcg blister with device 1 inh inhalation DAILY 90 Days Qty: 90 3RF ipratropium-albuterol 0.5 mg-3 mg(2.5 mg base)/3 mL solution for nebulization 3 ml inhalation Q6H PRN (Reason: shortness of breath or wheezing) Qty: 180 3RF bisoprolol fumarate 10 mg tablet 10 mg PO BID Qty: 180 2RF Rx Instructions: TAKE 1 TABLET TWICE DAILY albuterol sulfate 90 mcg/actuation HFA aerosol inhaler 2 inh inhalation QID PRN (Reason: shortness of breath or wheezing) 90 Days Qty: 8.5 2RF aspirin 81 MG tablet,chewable 81 mg PO DAILY losartan 100 MG tablet 100 mg PO DAILY fluconazole 150 MG tablet 150 mg PO WEEKLY Referrals Follow up/Referrals: Fortino Jackson MD [Primary Care Provider] - See instructions Johnnie Obrien DO [Staff Physician] - See instructions (ORTHO APPT 09/08/2023 @09:45) Activity Restrictions/Add. Instructions Additional Instructions/Restrictions: You have broken your right humerus. This will require a sling and follow-up with orthopedic surgery. I have placed that referral. Please take your home pain medication. Please return with any new or worsening symptoms. Clinical Impressions Clinical Impression: Closed right humeral fracture Qualifiers: Encounter type: initial encounter Humerus Location: proximal Discharge ED Provider: Varghese Lewis General Adult HPI General Chief complaint: Fall Stated complaint: Fall Time Seen by Provider: 09/03/23 13:10 History of Present Illness HPI narrative: Patient presents after nonsyncopal fall from standing that occurred earlier this morning. She states she slipped while outdoors and landed on her right side. She is right-hand dominant. She did strike her head. She did not lose consciousness. She was down for approximately 30 minutes. She denies any numbness or tingling. Her pain is most pronounced in her right shoulder and humerus. Previous therapies include home oxycodone approximately 1 and half hours ago. Denies any headache at this time. Describes chronic neck pain with no acute exacerbation. Denies any pain in her lower extremities, back, contralateral extremity, pain elsewhere. Denies blood thinners outside of baby aspirin daily. She was in her previous state of health until onset of symptoms. Related Data Home Medications Medication Instructions Recorded Confirmed aspirin 81 mg chewable tablet 81 mg PO DAILY HEART HEALTH 09/30/18 07/08/23 losartan 100 mg tablet 100 mg PO DAILY Hypertension 09/30/18 07/08/23 acetaminophen 500 mg tablet 1,000 mg PO Q6H PRN pain 11/08/18 07/08/23 (Tylenol Extra Strength) tizanidine 4 mg capsule (Zanaflex) 4 mg PO HS PRN muscle relaxer 07/25/20 07/08/23 fluconazole 150 mg tablet 150 mg PO WEEKLY . 06/21/21 07/08/23 fluticasone fur. 100 mcg-umeclid 1 inh inhalation DAILY COPD 04/01/22 07/08/23 62.5 mcg-vilant 25 mcg inhalat.powder (Trelegy Ellipta) furosemide 80 mg tablet 80 mg PO DAILY Fluid 04/01/22 07/08/23 tramadol 50 mg tablet 50 mg PO Q6H PRN Pain 04/29/22 07/08/23 albuterol sulfate 90 mcg/actuation 2 puff inhalation ONCE PRN COPD 07/02/22 07/08/23 aerosol inhaler hydrocodone 5 mg-acetaminophen 325 1 tab PO Q4-6H PRN 12/25/22 07/08/23 mg tablet Previous Rx's Medication Instructions Recorded spironolactone 25 mg tablet See Rx Instructions .Route 01/21/23 .COMPLEX #180 tabs fluticasone fur. 100 mcg-umeclid 1 inh inhalation DAILY 90 days #90 02/18/23 62.5 mcg-vilant 25 mcg ea inhalat.powder (Trelegy Ellipta) ipratropium 0.5 mg-albuterol 3 mg 3 ml inhalation Q6H PRN shortness 02/18/23 (2.5 mg base)/3 mL nebulization of breath or wheezing #180 mL soln bisoprolol fumarate 10 mg tablet 10 mg PO BID bp #180 tabs 06/08/23 albuterol sulfate 90 mcg/actuation 2 inh inhalation QID PRN shortness 06/11/23 aerosol inhaler of breath or wheezing 90 days #8.5 grams Allergies Allergy/AdvReac Type Severity Reaction Status Date / Time Penicillins Allergy Verified 07/08/23 13:06 Sulfa (Sulfonamide Allergy Verified 07/08/23 13:06 Antibiotics) [facility] Disclaimer: The information contained in this section may have been updated after the patient was seen, as this information can be updated by other users. Medical History Abnormality of lung on chest x-ray Asthma-chronic obstructive pulmonary disease overlap syndrome Atypical chest pain CAD (coronary artery disease) Cardiac pacemaker in situ CKD (chronic kidney disease) stage 3, GFR 30-59 ml/min COPD (chronic obstructive pulmonary disease) Dyspnea Dyspnea on exertion Dyspnea on exertion Exercise hypoxemia Hyperlipidemia Hypertension Nodule of right lung Palpitations Screening for lung cancer SOB (shortness of breath) Stopped smoking with greater than 30 pack year history Surgical History History of permanent cardiac pacemaker placement Family History Other Cancer Heart attack Stroke Social History Smoking Status: Former smoker tobacco type: cigarettes packs per day: 2 second hand exposure: No alcohol intake: never substance use type: denies use current occupational status: other Travel in the last 8 weeks: None household members: none housing: house current occupational exposures/hazards: No caffeine: Yes ROS Obtained: Yes Systems reviewed as appropriate & no additional complaints except as documented As per HPI Physical Exam General General appearance: alert and in no apparent distress Head Head exam: normocephalic and other (Hematoma to right forehead, small abrasion, no appreciable injury elsewhere along head) Eye Eye exam: Present normal appearance Neck Neck exam: Present normal inspection Chest Chest inspection: Present normal inspection and symmetric chest wall rise Respiratory Respiratory exam: Present normal lung sounds bilaterally; Absent respiratory distress Cardiovascular Cardiovascular exam: Present regular rate and normal rhythm Abdominal Exam Abdominal exam: Present soft Extremities Exam Extremities exam: Present other (Closed injury to right upper extremity with bony tenderness to palpation along humerus. Distally neurovascularly intact, skin tear of the elbow with no exposure of bone or tendon.) Neurological Exam Neurological exam: Present alert and oriented X3 Psychiatric Psychiatric exam: Present normal affect and normal mood Skin Skin exam: Present warm and dry Medical Decision Making Medical Records Medical records reviewed: Yes I reviewed the patient's medical records. Konrad Inquiry Pt receiving controlled substance: No Vital Signs: 09/03/23 13:07 09/03/23 16:23 Temperature 98.1 F 98.1 F Temperature Source Oral Pulse Rate 80 Pulse Rate [Left Brachial] 61 Respiratory Rate 20 20 Blood Pressure 150/70 H Blood Pressure [Left Arm] 136/61 Blood Pressure Mean [Left Arm] 86 Blood Pressure Source [Left Arm] Automatic Cuff Blood Pressure Position [Left Arm] Supine 02 Sat by Pulse Oximetry 93 L Oxygen Delivery Method Room Air Room Air Orders (Tests/Meds): ED MEDICATIONS Discontinued Medications Generic Name Dose Route Start Last Admin Trade Name Freq PRN Reason Stop Dose Admin Oxycodone HCl 5 mg 09/03/23 14:25 09/03/23 14:31 Oxycodone 5mg Immediate Release Tablet PO 09/03/23 14:26 5 mg ONCE ONE Administration ORDERS Category Date Time Status CT cervical spine wo con Stat Cat Scan 09/03/23 13:[address] head/brain wo con Stat Cat Scan 09/03/23 13:17 Completed XR elbow RT 2V Stat Exams 09/03/23 13:17 Completed XR humerus RT Stat Exams 09/03/23 13:17 Completed XR shoulder RT min 2V Stat Exams 09/03/23 13:17 Completed Medical Decision Narrative: Patient with history and exam per above presenting for evaluation of reportedly nonsyncopal fall, head injury, right upper extremity pain Diagnoses considered include Fracture, soft tissue injury, vascular injury, nerve injury,Subarachnoid hemorrhage, subdural hematoma, epidural hematoma, IPH, cervical spinal injury, concussion, diffuse axonal injury ED workup and treatment included: ED MEDICATIONS Discontinued Medications Generic Name Dose Route Start Last Admin Trade Name Prisca PRN Reason Stop Dose Admin Oxycodone HCl 5 mg 09/03/23 14:25 09/03/23 14:31 Oxycodone 5mg Immediate Release Tablet PO 09/03/23 14:26 5 mg ONCE ONE Administration ORDERS Category Date Time Status CT cervical spine wo con Stat Cat Scan 09/03/23 13:[address] head/brain wo con Stat Cat Scan 09/03/23 13:17 Completed XR elbow RT 2V Stat Exams 09/03/23 13:17 Completed XR humerus RT Stat Exams 09/03/23 13:17 Completed XR shoulder RT min 2V Stat Exams 09/03/23 13:17 Completed Imaging was independently visualized and interpreted by me, significant for closed proximal humerus fracture My clinical impression at this time is most consistent with isolated closed proximal humerus fracture, closed head injury, skin tear I discussed my clinical impression with patient and answered all questions. Patient was placed in sling, she is distally neurovascularly intact, has home pain medication, as well as family members at bedside who can help her if needed and observe mental status, patient is deemed stable for discharge at this time with orthopedic surgery follow-up. She and family members are in accordance with this plan. She will return with any new or worsening symptoms. Return precautions given. Critical Care Critical Care Time Critical Care Time: No
--- NOTE | 2023-09-03 13:14 | PC.NURSE ---
DR FRANK AT BEDSIDE
--- NOTE | 2023-09-03 13:17 | XR_ITS ---
FINAL REPORT CLINICAL HISTORY: fall, right humerus TTP COMPARISON: None FINDINGS: 2 views of the right humerus were obtained. There is a comminuted fracture of the humeral head and surgical neck. There is impaction of the fracture fragments. There is a separate greater tuberosity fracture fragment. There is mild AC and mild glenohumeral joint degenerative change. There is no evidence of dislocation. There is no soft tissue abnormality. IMPRESSION: Fractures as above. Reviewed, Interpreted and Dictated by Amando Bowden III, MD Transcribed by Luba Green Authenticated and [facility]
--- NOTE | 2023-09-03 13:17 | XR_ITS ---
FINAL REPORT CLINICAL HISTORY: fall, right elbow injury COMPARISON: None FINDINGS: 2 views of the elbow were obtained. There is no acute fracture or dislocation. There is mild degenerative change. The soft tissues are unremarkable. IMPRESSION: No acute fracture. Reviewed, Interpreted and Dictated by Amando Bowden III, MD Transcribed by Luba Green Authenticated and . [facility]
--- NOTE | 2023-09-03 13:17 | CT_ITS ---
FINAL REPORT CLINICAL HISTORY: fall, head injury, distracting injury COMPARISON: 11/06/2021 FINDINGS: Axial images of the head were obtained without contrast. Coronal reformatted images were also obtained.This study was performed with techniques to keep radiation doses as low as reasonably achievable (ALARA). Individualized dose reduction techniques using automated exposure control or adjustment of mA and/or kV according to the patient's size were employed. There is no evidence of intracranial hemorrhage or mass. The ventricular size is within normal limits. There is no evidence of shift of the midline structures. No abnormal extra axial fluid collection is identified. No skull abnormality is seen on the bone window images. There is right frontal soft tissue swelling. IMPRESSION: No acute intracranial abnormality. Reviewed, Interpreted and Dictated by Amando Bowden III, MD Transcribed by Luba Green Authenticated and [facility]
--- NOTE | 2023-09-03 13:17 | XR_ITS ---
FINAL REPORT CLINICAL HISTORY: fall, right shoulder injury COMPARISON: None FINDINGS: RIGHT SHOULDER: 3 views of the right shoulder were obtained. There is a comminuted fracture of the humeral head and surgical neck. There is impaction of the fracture fragments. There is a separate greater tuberosity fracture fragment. There is mild AC and mild glenohumeral joint degenerative change. There is no evidence of dislocation. There is no soft tissue abnormality. IMPRESSION: Fractures as above. Reviewed, Interpreted and Dictated by Amando Bowden III, MD Transcribed by Luba Green Authenticated and . [facility]
--- NOTE | 2023-09-03 13:18 | CT_ITS ---
FINAL REPORT CLINICAL HISTORY: fall, head injury, distracting injury COMPARISON: None FINDINGS: Axial CT images of the cervical spine were obtained without contrast. Sagittal and coronal reformatted images were also obtained. This study was performed with techniques to keep radiation doses as low as reasonably achievable (ALARA). Individualized dose reduction techniques using automated exposure control or adjustment of mA and/or kV according to the patient''s size were employed. There is no evidence of fracture or dislocation. The bony alignment is normal. There is moderate degenerative change. There is kyphosis centered at C5. There is no evidence of canal stenosis. No paraspinous soft tissue abnormality is seen. Moderate emphysema is noted in the lung apices. IMPRESSION: No fracture or acute bony abnormality identified. Reviewed, Interpreted and Dictated by Amando Bowden III, MD Transcribed by Luba Green Authenticated and [facility]
--- NOTE | 2023-09-03 13:29 | PC.NURSE ---
PT TO XR
[2023-09-03] MEDS: OXYCODONE 5MG IMMEDIATE RELEASE TABLET 5 MG PO (14:31)
--- NOTE | 2023-09-03 15:43 | PC.NURSE ---
DR FRANK AT BEDSIDE
[2023-09-03 16:23] VITALS: BP 150/70; PULSE 80; RESP 20; TEMP 36.7; O2SAT 97
--- NOTE | 2023-09-03 21:26 | PC.NURSE ---
chart accessed for ortho paperwork
== END 2023-09-03 16:24 | disposition home or self-care (01) ==
PROVIDERS: Emergency Provider Emergency Medicine; PCP Internal Medicine
DX: S42.201A Unspecified fracture of upper end of right humerus, initial encounter for closed fracture (principal); S42.211A Unspecified displaced fracture of surgical neck of right humerus, initial encounter for closed fracture; I25.10 Atherosclerotic heart disease of native coronary artery without angina pectoris; J44.9 Chronic obstructive pulmonary disease, unspecified; I12.9 Hypertensive chronic kidney disease with stage 1 through stage 4 chronic kidney disease, or unspecified chronic kidney disease; N18.30 Chronic kidney disease, stage 3 unspecified; E78.5 Hyperlipidemia, unspecified; W01.0XXA Fall on same level from slipping, tripping and stumbling without subsequent striking against object, initial encounter; Z87.891 Personal history of nicotine dependence
CPT/HCPCS: 70450; 72125; 73030; 73060; 73070; 99285

== ENCOUNTER 2023-09-22 12:39 | Outpatient (CLI) | payer MEDICARE, SELFPAY ==
--- NOTE | 2023-09-22 12:48 | XR_ITS ---
FINAL REPORT CLINICAL HISTORY: Rt Humerus fx COMPARISON: 09/03/2023 FINDINGS: Right shoulder Three views were obtained. There is a comminuted fracture of the humeral head and neck. There is impaction of the fracture fragments. The bony alignment is normal. No significant callus formation is identified. Mild degenerative changes are present. There is inferior subluxation of the main humeral fracture fragments, new since prior. IMPRESSION: Fracture as above. Reviewed, Interpreted and Dictated by Amando Bowden III, MD Transcribed by Mague Pinto Authenticated and . [facility]
[2023-09-22 17:32] LABS: Basophils % 0.5 % (0.1-2.0); Eosinophils # 0.2 K/mm3 (0.0-0.4); Eosinophils % 3.8 % (0.1-12.0); Hematocrit 42.3 % (37.0-47.0); Hemoglobin 13.8 g/dL (12.2-16.2); Lymphocytes # 1.7 K/mm3 (0.7-4.5); Lymphocytes % 25.9 % (10-50); Mean Corpuscular HGB Conc 32.5 g/dL (31.8-35.4); Mean Corpuscular Hemoglobin 31.2 pg (27.0-31.2); Mean Corpuscular Volume 95.9 fl (81-99); Monocytes # 0.6 K/mm3 (0.1-1.0); Monocytes % 8.6 % (1.7-9.3); Neutrophils % 61.2 % (37.0-80.0); Platelet Count 221 K/mm3 (142-424); Red Blood Count 4.42 M/mm3 (4.20-5.40); Red Cell Distribution Width 14.8 % (11.5-17.5); White Blood Count 6.5 K/mm3 (4.8-10.8)
[2023-09-22 17:45] LABS: Alanine Aminotransferase 12 U/L (12-78); Albumin Level 3.2 g/dl (3.5-5.0); Alkaline Phosphatase 169 U/L (38-126); Anion Gap 8.4 mEq/L (5-15); Aspartate Amino Transferase 21 U/L (14-36); Bilirubin,Total 0.7 mg/dl (0.2-1.3); Blood Urea Nitrogen 8 mg/dl (7-17); Calcium 8.8 mg/dl (8.4-10.2); Carbon Dioxide 31 mmol/L (22.0-30.0); Chloride 104 mmol/L (98-107); Chol/HDL Ratio 3.4 (1-3.5); Cholesterol 133 mg/dl (140-200); Estimated Glomerular Filt Rate 81 ml/min (>60); GFR (African American) 98 ML/MIN (>60); Globulin 3.2 g/dL (1.3-3.2); Glucose 82 mg/dl (74-100); HDL Cholesterol 39 mg/dl (40-60); Potassium 4.4 mmoL/L (3.5-5.1); Sodium 139 mmol/L (136-145); Total Protein,Serum 6.4 g/dl (6.3-8.2); Triglycerides 73 mg/dl (30-150); VLDL Cholesterol 15 mg/dL (0-40)
[2023-09-22 17:56] LABS: Direct LDL Cholesterol 73.83 mg/dL (100-129)
[2023-09-22 18:16] LABS: Thyroid Stimulating Hormone 1.48 uIU/mL (0.465-4.68)
== END 2023-09-22 23:59 ==
PROVIDERS: PCP Internal Medicine; Visit Provider Orthopaedic Surgery
DX: S42.301A Unspecified fracture of shaft of humerus, right arm, initial encounter for closed fracture (principal); M25.511 Pain in right shoulder; I10 Essential (primary) hypertension; I45.9 Conduction disorder, unspecified; I50.32 Chronic diastolic (congestive) heart failure; I87.2 Venous insufficiency (chronic) (peripheral); E78.5 Hyperlipidemia, unspecified; J44.9 Chronic obstructive pulmonary disease, unspecified; R60.9 Edema, unspecified; R53.83 Other fatigue
CPT/HCPCS: 73030; 80053; 80061; 84443; 85025

== ENCOUNTER 2024-09-28 15:16 | Observation (INO) | payer MEDICARE, SELFPAY ==
[2024-09-28 15:17] VITALS: BP 142/66; PULSE 96; RESP 18; TEMP 36.8; O2SAT 90; BMI 39.0
--- NOTE | 2024-09-28 15:47 | PC.NURSE ---
DR MACK AT BEDSIDE
--- NOTE | 2024-09-28 15:48 | ECG_ITS ---
APPROVED REPORT Exam: Resting ECG HR:62 bpm ECG Measurements Heart Rate 62 AXES ME 161 P 220 QRSd 102 QRS 68 QT 379 T 6 QTc 383 Conclusion A paced rhythm Incomplete right bundle branch block Electronically signed by : GLADYS MACK, 09/28/2024 22:09:09
--- NOTE | 2024-09-28 15:49 | XR_ITS ---
PROCEDURE INFORMATION: Exam: XR Chest Exam date and time: 09/28/2024 4:11 PM Age: 79 years old Clinical indication: Shortness of breath; Additional info: SOA fluid overload TECHNIQUE: Imaging protocol: Radiologic exam of the chest. Views: 1 view. COMPARISON: CT LUNG SCREENING 06/17/2022 9:20 AM FINDINGS: Lungs: See Heart/Mediastinum finding. Pleural spaces: Unremarkable. No pleural effusion. No pneumothorax. Heart/Mediastinum: Cardiomegaly stable. Stable position dual lead pacer. Mild bilateral fibro atelectatic changes in the mid and lower lung jose similar to previous. Lungs are otherwise clear. Bones/joints: Old proximal right humerus fracture that has developed in the interval. IMPRESSION: Cardiomegaly and bilateral fibro atelectatic changes. No definite acute disease.
--- NOTE | 2024-09-28 15:52 | PC.NURSE ---
Patient was also swabbed @2106
[2024-09-28 15:59] LABS: Coronavirus 19, PCR Not Detected (NotDetected); Influenza A, PCR Not Detected (NotDetected); Influenza B, PCR Not Detected (NotDetected)
--- NOTE | 2024-09-28 16:01 | PC.NURSE ---
VBG was tubed up to lab. Repiratory was called and notified.
--- NOTE | 2024-09-28 16:05 | HMH.EDGENADL ---
Discharge Plan Disposition Patient Disposition: Admitted Chief Complaint: Altered Mental Status Clinical Impressions Clinical Impression: CHF exacerbation Discharge ED Provider: Afshin Michelle General Adult HPI General Chief complaint: Altered Mental Status Stated complaint: SOA weak Time Seen by Provider: 09/28/24 15:33 Mode of Arrival: Wheelchair Source of Information: Patient Limitations: No Limitations Description of Symptoms (Recalled from ER Triage Doc. by RN): Pt presents with daughter for c/o altered mental status. Pt states she has been dreaming and seeing things that arent there. Pt fell 2 days ago. Pt states she hit her head. -LOC/BT. History of Present Illness HPI narrative: Please note that above description of symptoms, in this electronic medical record under categorization of recalled from ER triage doctor by RN are reflective of an initial nursing assessment, however, is not reflective of my full history and physical exam that was personally taken and clarified. Consequentially, this preceding description of symptoms, which may include the patient's categorized chief complaint in the EMR, do not reflect my personal clinical impression, and the ultimate description of history of present illness and patient stated complaints should be deferred to this section of the note. Unless stated otherwise or congruent with this section of the note, additional signs, symptoms, or incongruence should be interpreted as inaccurate with my clinical impression. Related Data Home Medications ?Medication ?Instructions ?Recorded ?Confirmed aspirin 81 mg chewable tablet 81 mg PO DAILY HEART HEALTH 09/30/18 12/24/23 losartan 100 mg tablet 100 mg PO DAILY Hypertension 09/30/18 12/24/23 tizanidine 4 mg capsule (Zanaflex) 4 mg PO HS PRN muscle relaxer 07/25/20 12/24/23 fluconazole 150 mg tablet 150 mg PO WEEKLY . 06/21/21 12/24/23 albuterol sulfate 90 mcg/actuation 2 puff inhalation ONCE PRN COPD 07/02/22 12/24/23 aerosol inhaler ibuprofen 400 mg tablet 400 mg PO Q6H 12/24/23 12/24/23 Previous Rx's ?Medication ?Instructions ?Recorded ipratropium 0.5 mg-albuterol 3 mg 3 ml inhalation Q6H PRN shortness 02/18/23 (2.5 mg base)/3 mL nebulization of breath or wheezing #180 mL soln albuterol sulfate 90 mcg/actuation 2 inh inhalation QID PRN shortness 06/11/23 aerosol inhaler of breath or wheezing 90 days #8.5 grams spironolactone 25 mg tablet See Rx Instructions .Route 10/26/23 .COMPLEX #180 tabs fluticasone fur. 100 mcg-umeclid See Rx Instructions .Route 01/28/24 62.5 mcg-vilant 25 mcg .COMPLEX #180 blisters inhalat.powder (Trelegy Ellipta) bisoprolol fumarate 10 mg tablet See Rx Instructions .Route 02/10/24 .COMPLEX #180 tabs furosemide 80 mg tablet See Rx Instructions .Route 03/09/24 .COMPLEX #180 tabs escitalopram oxalate 5 mg tablet See Rx Instructions .Route 07/26/24 .COMPLEX #90 tabs hydrocodone 5 mg-acetaminophen 325 1 tab PO Q4-6H PRN pain #120 tabs 08/11/24 mg tablet Allergies Allergy/AdvReac Type Severity Reaction Status Date / Time Penicillins Allergy Hives Verified 09/28/24 17:30 Sulfa (Sulfonamide Allergy Gastrointestinal Verified 09/28/24 17:30 Antibiotics) Upset [facility] Disclaimer: The information contained in this section may have been updated after the patient was seen, as this information can be updated by other users. Medical History Nodule of right lung Exercise hypoxemia Asthma-chronic obstructive pulmonary disease overlap syndrome Screening for lung cancer Stopped smoking with greater than 30 pack year history Abnormality of lung on chest x-ray Dyspnea on exertion Dyspnea on exertion Atypical chest pain Dyspnea SOB (shortness of breath) Cardiac pacemaker in situ Palpitations CAD (coronary artery disease) CKD (chronic kidney disease) stage 3, GFR 30-59 ml/min Hyperlipidemia COPD (chronic obstructive pulmonary disease) Hypertension Surgical History History of permanent cardiac pacemaker placement Family History Other Cancer Heart attack Stroke Social History Smoking Status: Never smoker second hand exposure: No alcohol intake: never substance use type: denies use current occupational status: other Travel in the last 8 weeks: None household members: none housing: house current occupational exposures/hazards: No caffeine: Yes Have you lived/traveled outside [place] in past 30 days?: No Contact w/someone who lives/traveled outside [place] past 30 days?: No Exposure to someone with infectious disease in past 14 days?: No Do you have a fever (greater than 100.4 F or 38 C)?: No Have you tested positive for COVID-19: No Exposed to someone with COVID-19 in past 14 days?: No Do you have a sore throat?: No Do you have a cough?: No Do you have any weakness?: No Do you have any diarrhea?: No Are you experiencing any unusual bleeding?: No Do you have any muscle aches/pain?: No Do you have any abdominal pain?: No Are you experiencing loss of taste or smell?: No Other Medical History Have you received the Flu Vaccine for this season: Yes Have you received the Pneumonia Vaccine: Yes ROS Obtained: Yes All systems reviewed & no additional complaints except as documented Physical Exam General General appearance: alert Head Head exam: atraumatic and normocephalic Eye Eye exam: Present normal appearance, PERRL and EOMI Neck Neck exam: Present normal inspection, full ROM and trachea midline Respiratory Respiratory exam: Present wheezes (Inspiratory and expiratory wheezes) and other (Decreased breath sounds in lower lobes anterior and posteriorly); Absent respiratory distress, stridor, accessory muscle use or prolonged expiratory phase Cardiovascular Cardiovascular exam: Present regular rate, normal rhythm and other (Pulses equal symmetric in upper and lower extremities) Abdominal Exam Abdominal exam: Present soft; Absent distention, tenderness or pulsatile mass Extremities Exam Extremities exam: Present edema Neurological Exam Neurological exam: Present alert, oriented X3 and CN II-XII intact; Absent motor sensory deficit Skin Skin exam: Present warm and dry; Absent diaphoresis or erythema Medical Decision Making Medical Records Medical records reviewed: Yes I reviewed the patient's medical records. Screening: Per USPSTF and CDC recommendations, given the prevalence of disease in our region, it is our hospital?s policy to screen for HIV and viral Hepatitis for all patients aged 18 and over and those with ongoing risk factors. Konrad Inquiry Pt receiving controlled substance: No Konrad was queried for this patient: No Vital Signs: 09/28/24 15:17 Temperature 98.2 F Temperature Source Oral Pulse Rate [Right] 96 H Respiratory Rate 18 Blood Pressure [Right Arm] 142/66 H Blood Pressure Mean [Right Arm] 91 Blood Pressure Position [Right Arm] Sitting 02 Sat by Pulse Oximetry 90 L Oxygen Delivery Method Room Air Nasal Cannula Lab Data Lab Results 09/28/24 15:46: SARS-CoV-2 (PCR) Not detected, Influenza A Untype (PCR) Not detected, Influenza Type B (PCR) Not detected 09/28/24 15:51: VBG pH 7.34, VBG pCO2 53.9 H, VBG pO2 48.4 H, VBG HCO3 28.7, VBG Total CO2 30.3 H, VBG O2 Saturation 81.3 H, VBG Base Excess 3.0 H, VBG Lactic Acid 1.3 09/28/24 15:55: WBC 5.9, RBC 4.15 L, Hgb 12.7, Hct 40.2, MCV 96.9, MCH 30.6, MCHC 31.6 L, RDW 13.9, Plt Count 184, MPV 10.2, Neut % (Auto) 61.1, Lymph % (Auto) 19.8, [place] % (Auto) 12.6 H, Eos % (Auto) 5.6, Baso % (Auto) 0.7, Neut # (Auto) 3.6, Lymph # (Auto) 1.2, [place] # (Auto) 0.7, Eos # (Auto) 0.3, Baso # (Auto) 0.0, PT 10.9, INR 0.97, APTT 26.0, Sodium 143, Potassium 3.6, Chloride 104, Carbon Dioxide 33 H, Anion Gap 9.6, BUN 36 H, Creatinine 1.10 H, Estimated Creat Clear 59, Estimated GFR 48 L, Est GFR ( Amer) 58 L, Glucose 119 H, Hemoglobin A1c 5.8, Calcium 8.8, Magnesium 1.9, Total Bilirubin 0.6, AST 23, ALT 18, Alkaline Phosphatase 127 H, Troponin I < 0.01, NT-Pro-B Natriuret Pep 2760 H, Total Protein 6.8, Albumin 3.3 L, Globulin 3.5 H, Albumin/Globulin Ratio 0.9 L, Triglycerides 65, Cholesterol 110 L, LDL Cholesterol Direct 62.08 L, VLDL Cholesterol 13, HDL Cholesterol 28 L, Cholesterol/HDL Ratio 3.9 H 09/28/24 15:55 09/28/24 15:55 Orders (Tests/Meds): ED MEDICATIONS Discontinued Medications Generic Name Dose Route Start Last Admin Trade Name Prisca PRN Reason Stop Dose Admin Furosemide 80 mg 09/28/24 16:45 09/28/24 17:17 Furosemide 40mg/4ml Vial IV 09/28/24 16:46 80 mg ONCE ONE Administration ORDERS Category Date Time Status XR chest portable Stat Exams 09/28/24 15:49 Completed Complete Blood Count Auto Diff Stat Lab 09/28/24 15:55 Completed Comprehensive Metabolic Panel Stat Lab 09/28/24 15:55 Completed Hemoglobin A1C Stat Lab 09/28/24 15:55 Completed Lipid Panel Stat Lab 09/28/24 15:55 Completed Magnesium Stat Lab 09/28/24 15:55 Completed NT Pro Brain Natriuretic Pep. Stat Lab 09/28/24 15:55 Completed PT INR [Prothrombin Time INR] Stat Lab 09/28/24 15:55 Completed PTT [Activated Partial Thrombo Time] Stat Lab 09/28/24 15:55 Completed Rapid PCR Covid and Flu A/B Stat Lab 09/28/24 15:46 Completed Troponin I Q3H Lab 09/28/24 19:00 Ordered Troponin I Q3H Lab 09/28/24 22:00 Ordered Troponin I Stat Lab 09/28/24 15:55 Completed Urinalysis and Microscopic Stat Lab 09/28/24 15:51 Ordered Venous Blood Gas Stat RT 09/28/24 15:51 Completed HEART Score History (anamnesis): Slightly suspicious ECG: Non-specific disturbance Age: >65 years Risk factors: 3 or more risk factors Troponin: </= normal limit HEART Score: 5 Medical Decision Narrative: 79-year-old female history of hypertension, hyperlipidemia, CHF with pacemaker defibrillator in place, COPD on 3 L nasal cannula at night, CKD presenting with shortness of breath. Patient states that she has been progressively short of breath over the last couple of weeks. States that over the past 2 or 3 days, she has had difficulty laying flat in her recliner where she usually sleeps. States that whenever she lays flat, swelling in her legs goes down, but she feels like she cannot breathe and she is getting smothered. No chest pain, nausea, vomiting, fevers, chills. Patient does have a cough that is productive of thick white sputum, similar to what she is used to. History was obtained via conversation with patient and family. On arrival, patient hemodynamically stable, alert, oriented x4, appropriate, GCS 15, moving all extremities spontaneously, pupils equal and reactive to light. Full physical exam performed and significant for very pleasant 79-year-old female. Speaking in full sentences. 3.5 L nasal cannula oxygen in place with normal oxygen saturations. Decreased breath sounds pretty uniformly in lower lung jose anteriorly and posteriorly. She does have inspiratory and expiratory wheezes and superior lung jose. No murmurs gallops or rubs. She has significant 2+ lower extremity pitting edema. Differential includes CHF exacerbation, ACS, GA, NSTEMI, COPD exacerbation, bronchitis, pneumonia, PE, pneumothorax, among others. Patient placed on continuous cardiac monitoring and continuous pulse ox with initial blood pressure 142/66, heart rate 96, saturation 90% on 3.5 L nasal cannula. Independent interpretation of EKG shows atrially paced rhythm 62 bpm with HI interval 161, QRS 102, QTc 383. Leftward leaning axis. Incomplete right bundle branch block morphology. No obvious acute ischemic change.. Patient was given supplemental oxygen initially for symptomatic management and correction of underlying abnormalities. When labs started returning, patient was given 80 mg IV Lasix. workup independently interpreted and significant for nonactionable CBC or chemistry. Stable CKD with creatinine 1.1. VBG nonactionable with normal pH, mildly elevated CO2 with normal bicarb consistent with COPD. Troponin negative, but BNP elevated at nearly 2800. On independent interpretation of imaging, edematous fissure, cardiomegaly without overt edema. See radiology read for full review of final results. Heart score 5. Prolonged discussion had with patient and family regarding home-going versus admission. Ultimately, shared decision making landed on patient being admitted for CHF exacerbation management. Daily weigh ins and fluid management at home were also discussed, patient and family voiced understanding. [employer] disclaimer Much of this encounter note is an electronic kettle girl spoken language to printed text. Electronic kettle girl of the spoken language may permit errors. Although I have reviewed the note, some errors may still exist. Critical Care Critical Care Time Critical Care Time: No
[2024-09-28 16:07] LABS: Basophils % 0.7 % (0.1-2.0); Eosinophils # 0.3 K/mm3 (0.0-0.4); Eosinophils % 5.6 % (0.1-12.0); Hematocrit 40.2 % (37.0-47.0); Hemoglobin 12.7 g/dL (12.2-16.2); Lymphocytes # 1.2 K/mm3 (0.7-4.5); Lymphocytes % 19.8 % (10-50); Mean Corpuscular HGB Conc 31.6 g/dL (31.8-35.4); Mean Corpuscular Hemoglobin 30.6 pg (27.0-31.2); Mean Corpuscular Volume 96.9 fl (81-99); Mean Platelet Volume 10.2 fl (7.4-10.4); Monocytes # 0.7 K/mm3 (0.1-1.0); Monocytes % 12.6 % (1.7-9.3); Neutrophils # 3.6 K/mm3 (1.8-7.8); Neutrophils % 61.1 % (37.0-80.0); Platelet Count 184 K/mm3 (142-424); Red Blood Count 4.15 M/mm3 (4.20-5.40); Red Cell Distribution Width 13.9 % (11.5-17.5); White Blood Count 5.9 K/mm3 (4.8-10.8)
[2024-09-28 16:08] LABS: Lactate Venous 1.3 mmol/L (0.4-2.0); VBG HCO3 28.7 mmol/L (23-30); VBG Oxygen Saturation 81.3 % (50-70); VBG PH 7.34 mmol/L (7.31-7.41); VBG PO2 48.4 mmol/L (28-40); VBG Total CO2 30.3 mmol/L (23-27)
[2024-09-28 16:11] LABS: VBG PCO2 53.9 mmol/L (35-51)
--- NOTE | 2024-09-28 16:18 | PC.NURSE ---
Patient in room and was given a Mountain Dew.
[2024-09-28 16:21] LABS: Alanine Aminotransferase 18 U/L (12-78); Albumin Level 3.3 g/dl (3.5-5.0); Albumin/Globulin Ratio 0.9 (1.1-1.8); Alkaline Phosphatase 127 U/L (38-126); Anion Gap 9.6 mEq/L (5-15); Aspartate Amino Transferase 23 U/L (14-36); Bilirubin,Total 0.6 mg/dl (0.2-1.3); Blood Urea Nitrogen 36 mg/dl (7-17); Calcium 8.8 mg/dl (8.4-10.2); Carbon Dioxide 33 mmol/L (22.0-30.0); Chloride 104 mmol/L (98-107); Chol/HDL Ratio 3.9 (1-3.5); Cholesterol 110 mg/dl (140-200); Creatinine Clearance Estimated 59 mL/min (50-200); Estimated Glomerular Filt Rate 48 ml/min (>60); GFR (African American) 58 ML/MIN (>60); Globulin 3.5 g/dL (1.3-3.2); Glucose 119 mg/dl (74-100); HDL Cholesterol 28 mg/dl (40-60); Magnesium 1.9 mg/dl (1.6-2.3); Potassium 3.6 mmoL/L (3.5-5.1); Sodium 143 mmol/L (136-145); Total Protein,Serum 6.8 g/dl (6.3-8.2); Triglycerides 65 mg/dl (30-150); VLDL Cholesterol 13 mg/dL (0-40)
[2024-09-28 16:22] LABS: INR 0.97 (0.9-1.1); Prothrombin Time 10.9 seconds (10.1-12.5)
[2024-09-28 16:31] LABS: Direct LDL Cholesterol 62.08 mg/dL (100-129)
--- NOTE | 2024-09-28 16:33 | PC.NURSE ---
ROUNDED ON THE PT. THE PT VOICES THAT SHE DOES NOT NEED ANYTHING AT THIS TIME. CALL LIGHT IS WITHIN REACH OF THE PT. FAMILY MEMBER IS PRESENT AT THE BEDSIDE.
[2024-09-28 16:34] LABS: NT Pro Brain Natriuretic Pep. 2760 pg/mL (0-450)
[2024-09-28 16:41] LABS: Troponin I < 0.01 ng/ml (0.00-0.034)
[2024-09-28 17:05] LABS: Hemoglobin A1C 5.8 % (4.0-6.0)
[2024-09-28] MEDS: FUROSEMIDE 40MG/4ML VIAL 80 MG IV (17:17)
--- NOTE | 2024-09-28 17:20 | PC.NURSE ---
Bedside toilet was put in patients room.
--- NOTE | 2024-09-28 17:39 | PC.NURSE ---
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
--- NOTE | 2024-09-28 17:41 | PC.NURSE ---
ROUNDED ON THE PT. THE PT VOICES THAT SHE DOES NOT NEED ANYTHING AT THIS TIME. CALL LIGHT IS WITHIN REACH OF THE PT. FAMILY MEMBERS ARE PRESENT AT THE BEDSIDE.
[2024-09-28 18:36] VITALS: BP 154/57; PULSE 87; RESP 16; TEMP 36.9; O2SAT 95
--- NOTE | 2024-09-28 19:06 | P.HP_ITS ---
<Statement entered by Rodriguez Sibley MD - 10/04/24 14:21> I personally examined the patient and agree with the plan of care outlined by the SOLUTIONS DEVELOPMENT ANALYST. History of Present Illness *Admission Date: 09/28/24 *Reason for visit:: Shortness of breath *History of present illness: This is a 79-year-old female who was a past medical history significant lung nodule, acute on chronic hypoxic respiratory failure, diastolic congestive heart failure, coronary artery disease, CKD, COPD, and hypertension who presents with a chief complaint of shortness of breath. Due to patient symptoms, she presented to the emergency room for evaluation. While in emergency room, chest x-ray revealed cardiomegaly and bilateral fibro atelectatic changes. BNP was 2760. Due to these findings, patient has been admitted for further management. During my evaluation of the patient, patient states she has been having shortness of breath for some time. She reports having difficulty laying flat for approximately 2-3 days. She normally sleeps in a recliner and cannot recline the chair to breathe. She felt as if it was smothering her. She reports her shortness of breath has worsened over the past couple of weeks. She also reports having a productive cough with thick white sputum. She is currently denying any weight gain, chest pain, lightheadedness, dizziness, fever, chills, rigors, nausea, vomiting, or diarrhea. Additional pertinent vitals obtained including bicarb of 33, BUN of 36, creatinine 1.1, GFR 48, blood glucose 119, alkaline phosphate 127, BNP at 2760, albumin 3.3, red blood cell count of 4.5, pH is 7.35, and pCO2 of 53.., PFSH PFS Disclaimer: The information contained in this section may have been updated after the patient was seen, as this information can be updated by other users. Medical History Nodule of right lung Exercise hypoxemia Asthma-chronic obstructive pulmonary disease overlap syndrome Screening for lung cancer Stopped smoking with greater than 30 pack year history Abnormality of lung on chest x-ray Dyspnea on exertion Dyspnea on exertion Atypical chest pain Dyspnea SOB (shortness of breath) Cardiac pacemaker in situ Palpitations CAD (coronary artery disease) CKD (chronic kidney disease) stage 3, GFR 30-59 ml/min Hyperlipidemia COPD (chronic obstructive pulmonary disease) Hypertension Surgical History History of permanent cardiac pacemaker placement Family History Other Cancer Heart attack Stroke Social History Smoking Status: Never smoker second hand exposure: No alcohol intake: never substance use type: denies use current occupational status: other Travel in the last 8 weeks: None household members: none housing: house current occupational exposures/hazards: No caffeine: Yes Have you lived/traveled outside [place] in past 30 days?: No Contact w/someone who lives/traveled outside US past 30 days?: No Exposure to someone with infectious disease in past 14 days?: No Do you have a fever (greater than 100.4 F or 38 C)?: No Have you tested positive for COVID-19: No Exposed to someone with COVID-19 in past 14 days?: No Do you have a sore throat?: No Do you have a cough?: No Do you have any weakness?: No Do you have any diarrhea?: No Are you experiencing any unusual bleeding?: No Do you have any muscle aches/pain?: No Do you have any abdominal pain?: No Are you experiencing loss of taste or smell?: No Other Medical History Have you received the Flu Vaccine for this season: Yes Have you received the Pneumonia Vaccine: Yes Review of Systems Review of Systems Review of systems:: pertinent systems reviewed and negative unless documented below Constitutional Constitutional: Reports system reviewed and no additional complaints, except as documented Eyes Eyes: Reports system reviewed and no additional complaints, except as documented ENT Ears, Nose, Mouth, and Throat: Reports system reviewed and no additional complaints, except as documented *Cardiovascular Cardiovascular: Reports dyspnea, Reports dyspnea on exertion, Reports leg edema and Reports orthopnea *Respiratory Respiratory: Reports dyspnea and Reports dyspnea on exertion *Gastrointestinal Gastrointestinal: Reports system reviewed and no additional complaints, except as documented *Genitourinary Genitourinary: Reports system reviewed and no additional complaints, except as documented *Musculoskeletal Musculoskeletal: Reports system reviewed and no additional complaints, except as documented Integumentary/Breasts Skin/Breast: Reports skin swelling *Neurologic Neurologic: Reports system reviewed and no additional complaints, except as documented Psychiatric Psychiatric: Reports system reviewed and no additional complaints, except as documented Endocrine Endocrine: Reports system reviewed and no additional complaints, except as documented Hematologic/Lymphatic Hematologic/Lymphatic: Reports system reviewed and no additional complaints, except as documented Allergic/Immunologic Allergic/Immunologic: Reports system reviewed and no additional complaints, except as documented Meds Home Medications and Allergies Home Medications ?Medication ?Instructions ?Recorded ?Confirmed ?Type aspirin 81 mg chewable tablet 81 mg PO DAILY HEART HEALTH 09/30/18 09/28/24 History tizanidine 4 mg capsule (Zanaflex) 4 mg PO HS PRN muscle relaxer 07/25/20 09/28/24 History albuterol sulfate 90 mcg/actuation 2 puff inhalation ONCE PRN COPD 07/02/22 09/28/24 History aerosol inhaler ipratropium 0.5 mg-albuterol 3 mg 3 ml inhalation Q6H PRN shortness 02/18/23 09/28/24 Rx (2.5 mg base)/3 mL nebulization of breath or wheezing #180 mL soln albuterol sulfate 90 mcg/actuation 2 inh inhalation QID PRN shortness 06/11/23 09/28/24 Rx aerosol inhaler of breath or wheezing 90 days #8.5 grams ibuprofen 400 mg tablet 400 mg PO Q6H 12/24/23 09/28/24 History bisoprolol fumarate 10 mg tablet See Rx Instructions .Route 02/10/24 09/28/24 Rx .COMPLEX #180 tabs escitalopram oxalate 5 mg tablet See Rx Instructions .Route 07/26/24 09/28/24 Rx .COMPLEX #90 tabs hydrocodone 5 mg-acetaminophen 325 1 tab PO Q4-6H PRN pain #120 tabs 08/11/24 09/28/24 Rx mg tablet furosemide 80 mg tablet 80 mg PO DAILY 09/28/24 09/28/24 History New Prescriptions to Start Prescriptions: Allergies Allergy/AdvReac Type Severity Reaction Status Date / Time Penicillins Allergy Hives Verified 09/28/24 17:30 Sulfa (Sulfonamide Allergy Gastrointestinal Verified 09/28/24 17:30 Antibiotics) Upset Exam Data for Last 24 hours Vital signs and Labs for Last 24 Hours: Temp Pulse Resp BP Pulse Ox O2 Del Method O2 Flow Rate 98.5 F 87 16 154/57 H 90 L Nasal Cannula 3 09/28/24 18:36 09/28/24 18:36 09/28/24 18:36 09/28/24 18:36 09/28/24 15:17 09/28/24 18:36 09/28/24 18:36 Laboratory Results - last 24 hr 09/28/24 15:46: SARS-CoV-2 (PCR) Not detected, Influenza A Untype (PCR) Not detected, Influenza Type B (PCR) Not detected 09/28/24 15:51: VBG pH 7.34, VBG pCO2 53.9 H, VBG pO2 48.4 H, VBG HCO3 28.7, VBG Total CO2 30.3 H, VBG O2 Saturation 81.3 H, VBG Base Excess 3.0 H, VBG Lactic Acid 1.3 09/28/24 15:55: WBC 5.9, RBC 4.15 L, Hgb 12.7, Hct 40.2, MCV 96.9, MCH 30.6, MCHC 31.6 L, RDW 13.9, Plt Count 184, MPV 10.2, Neut % (Auto) 61.1, Lymph % (Auto) 19.8, [place] % (Auto) 12.6 H, Eos % (Auto) 5.6, Baso % (Auto) 0.7, Neut # (Auto) 3.6, Lymph # (Auto) 1.2, [place] # (Auto) 0.7, Eos # (Auto) 0.3, Baso # (Auto) 0.0, PT 10.9, INR 0.97, APTT 26.0, Sodium 143, Potassium 3.6, Chloride 104, Carbon Dioxide 33 H, Anion Gap 9.6, BUN 36 H, Creatinine 1.10 H, Estimated Creat Clear 59, Estimated GFR 48 L, Est GFR ( Amer) 58 L, Glucose 119 H, Hemoglobin A1c 5.8, Calcium 8.8, Magnesium 1.9, Total Bilirubin 0.6, AST 23, ALT 18, Alkaline Phosphatase 127 H, Troponin I < 0.01, NT-Pro-B Natriuret Pep 2760 H , Total Protein 6.8, Albumin 3.3 L, Globulin 3.5 H, Albumin/Globulin Ratio 0.9 L , Triglycerides 65, Cholesterol 110 L, LDL Cholesterol Direct 62.08 L, VLDL Cholesterol 13, HDL Cholesterol 28 L, Cholesterol/HDL Ratio 3.9 H I & O for Last 24 hours: Intake & Output 09/25/24 09/26/24 09/27/24 09/28/24 23:59 23:59 23:59 23:59 Weight 90.718 kg Constitutional Constitutional: no acute distress and obese *Routine HEENT Exam Head: Present normocephalic and atraumatic Eye: Present EOMI, PERRL and normal accommodation ENT: Present mucous membranes moist *Routine Neck Exam Neck: Present supple and full ROM *Routine Respiratory Exam Respiratory: Present wheezes *Routine Cardiovascular Exam Cardiovascular: Present Normal S1 and Normal S2 *Routine Abdominal Exam Abdominal: Present soft, normoactive bowel sounds and obese *Routine Rectal Exam Rectal:: deferred *Routine Genitalia Exam Genitalia:: deferred *Routine Extremities Exam Extremities: Present edema, full ROM, pulses intact and normal capillary refill Routine Back/Spine/Pelvis Exam Back/Spine: Present full ROM *Routine Skin Exam Skin: Present intact and warm *Routine Neurological Exam Neurological: Present alert, oriented X3, CN II-XII intact and moving all extremities Routine Psychiatric Exam Psychiatric: Present normal affect, normal thought process, cooperative and good insight H&P: Result Impressions This is a 79-year-old female who has a known diastolic dysfunction congestive heart failure who presents with acute shortness of breath that has worsened over the past 3 weeks. She is noted to have 3+ pitting edema to bilateral lower extremities with no overt failure seen on imaging. Patient may have underlying COPD exacerbation. Assessment and Plan *Assessment and plan (1) CHF exacerbation: Status: Acute Qualifiers: Heart failure type: diastolic Qualified Code(s): I50.33 - Acute on chronic diastolic (congestive) heart failure Category: Medical Code(s): I50.9 - Heart failure, unspecified (2) Acute on chronic respiratory failure with hypoxia and hypercapnia: Status: Acute Category: Medical Code(s): J96.21 - Acute and chronic respiratory failure with hypoxia; J96.22 - Acute and chronic respiratory failure with hypercapnia (3) Acute kidney injury superimposed on chronic kidney disease: Status: Acute Category: Medical Code(s): N17.9 - Acute kidney failure, unspecified; N18.9 - Chronic kidney disease, unspecified (4) Hypervolemia: Status: Acute Qualifiers: Hypervolemia type: unspecified Qualified Code(s): E87.70 - Fluid overload, unspecified Category: Medical Code(s): E87.70 - Fluid overload, unspecified (5) COPD exacerbation: Status: Acute Category: Medical Code(s): J44.1 - Chronic obstructive pulmonary disease with (acute) exacerbation Plan Assessment: Acute on chronic diastolic congestive heart failure: HFpEF/hypervolemia -40 mg of Lasix IV twice daily -Strict intake and output -1500 mL fluid volume restriction -Trend troponin Acute on chronic hypoxic hypercapnic respiratory failure/COPD exacerbation -Will continue home O2 regimen of 3 L -DuoNebs every 6 hours -Will consider nocturnal BiPAP -40 mg prednisone p.o. daily Acute on chronic renal impairment: Baseline creatinine is within normal limits -Will monitor creatinine function daily -With worsening we will obtain urine studies and ultrasound of the kidneys Plan: Admit patient to the MedSurg unit 2D echo Up with assistance Strict intake and output Daily weight Supplemental oxygen maintain oxygen saturation greater 92% Saline lock Cardiac diet CBC/BMP daily 5000 units heparin subcu 3 times daily 4 mg Zofran IV push every 8 hours. Nausea from Full code I did offer [place] catheter the patient and she refused I have discussed this case with attending physician Dr. Sibley and I look forward to more input
[2024-09-28 19:18] VITALS: BP 154/73; PULSE 60; RESP 18; TEMP 36.7; O2SAT 96; BMI 40.8
[2024-09-28 20:00] VITALS: BP 132/58; PULSE 62; RESP 16; TEMP 36.6; O2SAT 98
[2024-09-28 20:17] LABS: Troponin I 0.01 ng/ml (0.00-0.034)
[2024-09-28] MEDS: HEPARIN SODIUM 5,000 UNIT/ML VIAL 5000 UNIT SUBCUT (21:15)
[2024-09-28] MEDS: HYDROCODONE/APAP 5/325 MG TABLET 1 TAB PO (22:46)
[2024-09-28 23:16] LABS: Troponin I < 0.01 ng/ml (0.00-0.034)
[2024-09-28] MEDS: IPRATROPIUM/ALBUTEROL 3 ML NEB IH (23:47)
[2024-09-28 23:48] VITALS: PULSE 65; PULSE 68; O2SAT 95
[2024-09-29] VITALS (11 sets, daily range): BP systolic 110–146; BP diastolic 45–73; PULSE 59–80; RESP 16–18; TEMP 36.7–37.1; O2SAT 2–96; BMI 40.8
[2024-09-29 01:41] LABS: Microscopic, Urine URINE MICROSCOPIC (MICROSCOPIC)
[2024-09-29 01:45] LABS: Appearance,Urine CLEAR (Clear); Bilirubin,Urine Negative (Negative); Blood, Urine Negative (Negative); Color,Urine YELLOW (Yellow); Glucose,Urine (UA) Negative (Negative); Ketones,Urine Negative (Negative); Leukocyte Esterase,Urine TRACE (Negative); Nitrate,Urine POSITIVE (Negative); Protein,Urine Negative (Negative); Specific Gravity, Urine 1.015 (1.005-1.030); Urobilinogen,Urine 0.2 EU/dl (0.2)
[2024-09-29 02:25] LABS: Amorphous Sediment,Urine 1+ /lpf; Bacteria,Urine 2+ /lpf
--- NOTE | 2024-09-29 06:00 | CA_ITS ---
APPROVED REPORT EXAM: Comprehensive 2D, Doppler, and color-flow Echocardiogram [employer] Hel[employer]: Yasmine Alexis RVT Ht: 5 ft 0 in Wt: 200lbs BSA: 1.87 BP: 154/57 mmHg Indications: CHF,CAD,COPD,SOA,PALPS,HLD 2D Dimensions IVSd 1.58 cm F: 0.6-1.0 LVEF (Visual) 69.80 % PWd 1.03 cm F: 0.6 - 1.0 LVDd 5.13 cm F: 3.9 - 5.3 LVDs 3.10 cm F: 2.2 - 3.5 M-Mode Dimensions LA Diam 3.57 cm (1.9-4.0) LV Diastology E Decel Time 183 (160-240 msec) E/A Ratio 1.1 Aortic Valve NJ Index 1.41 cm2/m2 AoV Peak Jensen. 135.0 (50-130 cm/s) AO Peak GR. 7.30 mmHg AO Mean GR. 3.80 (<5 mmHg) AO VTI 28.7 (18-25 cm) NJ (VTI) 2.70 (2.5-4.5 cm2) Mitral Valve MV E Max Jensen. 73.0 (40-130 cm/s) MV A Velocity 66.0 (40-130 cm/s) E/A Ratio 1.12 MV PHT 54.0 ms Pulmonary Valve PV Peak Velocity 89.0 (50-150 cm/s) Tricuspid Valve TR P. Velocity 355.00 cm/s RAP Estimate 10.00 mmHg RVSP 60.30 mmHg Left Ventricle The left ventricle is normal size. The left ventricular systolic function is normal. The left ventricular ejection fraction is within the normal range. There is increased LV wall thickness. There is normal LV segmental wall motion. Grade 2 diastolic dysfunction is present. LVEF is 60%. Right Ventricle Right ventricle is moderately dilated. Right ventricle is moderately hypokinetic. Atria The left atrium is mildly dilated. Right atrium is mildly dilated. There is no Doppler evidence of interatrial shunt. Aortic Valve Aortic valve is mildly thickened. There is no aortic valvular stenosis. No aortic regurgitation is present. Mitral Valve The mitral valve leaflets are mildly thickened. Mild mitral regurgitation. No evidence of mitral valve stenosis. Tricuspid Valve The tricuspid valve leaflets are thin and pliable. Mild tricuspid regurgitation. RVSP is 45-50 mmHg. Pulmonic Valve The pulmonary valve is normal in structure. Mild pulmonic regurgitation. Great Vessels The aortic root is not well-visualized. The IVC is dilated. Pericardium There is no pericardial effusion. Other Information Study Quality: Technically Difficult Conclusion Technically difficult study due to poor acoustic windows. Normal LV systolic function. Grade 2 diastolic dysfunction. Moderate RV dilation with moderate reduction in RV function. Biatrial dilation. Mild MR, mild TR, mild PI. Elevated RVSP 45-50 mmHg. Electronically signed by : Coty Stephenson MD 10/04/2024 22:49:37
[2024-09-29] MEDS: IPRATROPIUM/ALBUTEROL 3 ML NEB IH ×4 (06:09→23:37)
[2024-09-29 07:09] LABS: Chloride 105 mmol/L (98-107); Potassium 3.2 mmoL/L (3.5-5.1); Sodium 144 mmol/L (136-145)
[2024-09-29 07:12] LABS: Anion Gap 10.2 mEq/L (5-15); Blood Urea Nitrogen 27 mg/dl (7-17); Carbon Dioxide 32 mmol/L (22.0-30.0); Creatinine Clearance Estimated 31 mL/min (50-200); Estimated Glomerular Filt Rate 69 ml/min (>60); GFR (African American) 84 ML/MIN (>60)
[2024-09-29 07:13] LABS: Basophils % 0.6 % (0.1-2.0); Calcium 8.6 mg/dl (8.4-10.2); Eosinophils # 0.4 K/mm3 (0.0-0.4); Eosinophils % 7.8 % (0.1-12.0); Glucose 91 mg/dl (74-100); Hematocrit 41.8 % (37.0-47.0); Hemoglobin 13.1 g/dL (12.2-16.2); Lymphocytes % 18.2 % (10-50); Mean Corpuscular HGB Conc 31.3 g/dL (31.8-35.4); Mean Corpuscular Volume 98.8 fl (81-99); Mean Platelet Volume 10.6 fl (7.4-10.4); Monocytes # 0.7 K/mm3 (0.1-1.0); Neutrophils # 3.1 K/mm3 (1.8-7.8); Platelet Count 190 K/mm3 (142-424); Red Blood Count 4.23 M/mm3 (4.20-5.40); White Blood Count 5.2 K/mm3 (4.8-10.8)
--- NOTE | 2024-09-29 08:07 | PC.NURSE ---
Pt. alert and orientaed x 4. Pt. on 2 liters oxygen per NC. Pt. was admitted last night for CHF diuresis. Pt. states she never sleeps in a bed. was up in the recliner all night. di not want to keep her legs elevated. BLE swollen pitting edema. Pt. up with one assist to bathroom . Pt. slept at intervals. VSS. Personal items and call ayala in reach. Pt's daughter at bedside overnight.
[2024-09-29] MEDS: FUROSEMIDE 40MG/4ML VIAL 40 MG IV ×2 (08:22→15:02)
[2024-09-29] MEDS: HEPARIN SODIUM 5,000 UNIT/ML VIAL 5000 UNIT SUBCUT ×3 (08:22→21:15)
[2024-09-29] MEDS: predniSONE 20MG TAB 40 MG PO (08:23)
--- NOTE | 2024-09-29 12:36 | HMH.PHAINT1 ---
Pharmacy Intervention Comments: HOME MEDICATION LIST VERIFIED USING LIST FROM OUTPATIENT PHARMACY, PT INTERVIEW AND PCP OFFICE
--- NOTE | 2024-09-29 16:01 | P.PN_ITS ---
Subjective *Date: 10/05/24 *Time: 13:47 Interval history: Feeling and breathing better today, however continues to be moderately volume overloaded. Will continue diuresis. Exam Data for Last 24 hours Vital signs and Labs for Last 24 Hours: Temp Pulse Resp BP Pulse Ox O2 Del Method O2 Flow Rate 98.8 F 60 18 137/73 89 L Nasal Cannula 2 09/29/24 11:41 09/29/24 11:41 09/29/24 11:41 09/29/24 11:41 09/29/24 12:42 09/29/24 15:00 09/29/24 15:00 Laboratory Results - last 24 hr 09/28/24 15:46: SARS-CoV-2 (PCR) Not detected, Influenza A Untype (PCR) Not detected, Influenza Type B (PCR) Not detected 09/28/24 15:51: VBG pH 7.34, VBG pCO2 53.9 H, VBG pO2 48.4 H, VBG HCO3 28.7, VBG Total CO2 30.3 H, VBG O2 Saturation 81.3 H, VBG Base Excess 3.0 H, VBG Lactic Acid 1.3 09/28/24 15:55: WBC 5.9, RBC 4.15 L, Hgb 12.7, Hct 40.2, MCV 96.9, MCH 30.6, MCHC 31.6 L, RDW 13.9, Plt Count 184, MPV 10.2, Neut % (Auto) 61.1, Lymph % (Auto) 19.8, [place] % (Auto) 12.6 H, Eos % (Auto) 5.6, Baso % (Auto) 0.7, Neut # (Auto) 3.6, Lymph # (Auto) 1.2, [place] # (Auto) 0.7, Eos # (Auto) 0.3, Baso # (Auto) 0.0, PT 10.9, INR 0.97, APTT 26.0, Sodium 143, Potassium 3.6, Chloride 104, Carbon Dioxide 33 H, Anion Gap 9.6, BUN 36 H, Creatinine 1.10 H, Estimated Creat Clear 59, Estimated GFR 48 L, Est GFR ( Amer) 58 L, Glucose 119 H, Hemoglobin A1c 5.8, Calcium 8.8, Magnesium 1.9, Total Bilirubin 0.6, AST 23, ALT 18, Alkaline Phosphatase 127 H, Troponin I < 0.01, NT-Pro-B Natriuret Pep 2760 H , Total Protein 6.8, Albumin 3.3 L, Globulin 3.5 H, Albumin/Globulin Ratio 0.9 L , Triglycerides 65, Cholesterol 110 L, LDL Cholesterol Direct 62.08 L, VLDL Cholesterol 13, HDL Cholesterol 28 L, Cholesterol/HDL Ratio 3.9 H 09/28/24 19:12: Troponin I 0.01 09/28/24 22:33: Troponin I < 0.01 09/29/24 01:30: Urine Color Yellow, Urine Appearance Clear, Urine pH 6.0, Ur Specific [place] 1.015, Urine Protein Negative, Urine Glucose (UA) Negative, Urine Ketones Negative, Urine Blood Negative, Urine Nitrate Positive A, Urine Bilirubin Negative, Urine Urobilinogen 0.2, Ur Leukocyte Esterase Trace, Urine WBC 3-5, Ur Squamous Epith Cells 5-10, Amorphous Sediment 1+, Urine Bacteria 2+ 09/29/24 05:53: WBC 5.2, RBC 4.23, Hgb 13.1, Hct 41.8, MCV 98.8, MCH 31.0, MCHC 31.3 L, RDW 14.0, Plt Count 190, MPV 10.6 H, Neut % (Auto) 59.0, Lymph % (Auto) 18.2, [place] % (Auto) 14.0 H, Eos % (Auto) 7.8, Baso % (Auto) 0.6, Neut # (Auto) 3.1, Lymph # (Auto) 1.0, [place] # (Auto) 0.7, Eos # (Auto) 0.4, Baso # (Auto) 0.0, Sodium 144, Potassium 3.2 L, Chloride 105, Carbon Dioxide 32 H, Anion Gap 10.2, BUN 27 H, Creatinine 0.80 D, Estimated Creat Clear 31, Estimated GFR 69, Est GFR ( Amer) 84 D, Glucose 91 D, Calcium 8.6 I & O for Last 24 hours: Intake & Output 09/26/24 09/27/24 09/28/24 09/29/24 23:59 23:59 23:59 23:59 Intake Total 1210 / 1210 Output Total 0 / 400 1300 / 1300 Balance 0 / 150 -90 / -90 Weight 94.347 kg 94.445 kg Microbiology Reports for the Last 24 Hours: Microbiology 09/29/24 01:30 Urine,Clean Catch Urine Culture - Preliminary Constitutional Constitutional: no acute distress *Routine HEENT Exam Head: Present normocephalic Eye: Present EOMI and PERRL ENT: Present mucous membranes moist *Routine Neck Exam Neck: Present supple; Absent lymphadenopathy *Routine Respiratory Exam Respiratory: Present CTA bilaterally *Routine Cardiovascular Exam Cardiovascular: Present RRR *Routine Abdominal Exam Abdominal: Present soft and normoactive bowel sounds; Absent tenderness *Routine Extremities Exam Extremities: Present edema; Absent cyanosis or clubbing Comments: Lower extremity pitting edema 3+. *Routine Skin Exam Skin: Present warm; Absent rash *Routine Neurological Exam Neurological: Present alert and oriented X3 Assessment and Plan *Assessment and plan (1) COPD exacerbation: Status: Acute Category: Medical Code(s): J44.1 - Chronic obstructive pulmonary disease with (acute) exacerbation (2) Hypervolemia: Status: Acute Qualifiers: Hypervolemia type: unspecified Qualified Code(s): E87.70 - Fluid overload, unspecified Category: Medical Code(s): E87.70 - Fluid overload, unspecified (3) CHF exacerbation: Status: Acute Qualifiers: Heart failure type: diastolic Qualified Code(s): I50.33 - Acute on chronic diastolic (congestive) heart failure Category: Medical Code(s): I50.9 - Heart failure, unspecified Plan Francine Bunrs is a 79-year-old female who was admitted for acute hypoxic respiratory failure secondary to HFpEF exacerbation, COPD exacerbation. #Acute hypoxic respiratory failure #HFpEF exacerbation ? Progressive shortness of breath, elevated BNP, pulmonary edema on chest im aging, peripheral edema 3+. ? History of grade 1 diastolic dysfunction. Takes Lasix 80 mg daily at home. ? Has only had net -490 mL urine output so far. ? Increase Lasix to 80 mg twice daily, started spironolactone 25 mg. ? Follow-up repeat ECHO. ? Continue fluid restriction 1500 mL. ? Continue 3 L nasal cannula, desaturating to 86% on room air. Wean as tolerated. #COPD exacerbation ? Continue DuoNebs every 6 hours, prednisone 40 mg daily. #CAD ? Continue aspirin, bisoprolol. Full code DVT prophylaxis: Lovenox 40 mg
--- NOTE | 2024-09-29 22:23 | PC.NURSE ---
Upon assessment of Pt, pt admitted to this nurse that she had already taken her HS medications from her home medications (that had not been verified by pharmacy). MD aware. Pt id become short of breath after returning to the chair from the bathroom, also aware.
[2024-09-30] VITALS (10 sets, daily range): BP systolic 102–142; BP diastolic 49–95; PULSE 60–82; RESP 17–20; TEMP 36.5–36.9; O2SAT 86–97; BMI 39.6
[2024-09-30] MEDS: HYDROCODONE/APAP 5/325 MG TABLET 1 TAB PO (01:12)
--- NOTE | 2024-09-30 05:01 | PC.NURSE ---
Pt is A&Ox4 and currently tolerating 2L well at this time sating @ 92%. Pt has c/o pain this shift and was treated per MAR. Pt continues to walk with assistance to BR. Pt is a high fall risk due to falls at home, pt does not have an alarm in place due to family present at bedside and pt preference.
[2024-09-30] MEDS: IPRATROPIUM/ALBUTEROL 3 ML NEB IH ×4 (05:55→23:55)
[2024-09-30 07:04] LABS: Basophils % 0.3 % (0.1-2.0); Eosinophils # 0.1 K/mm3 (0.0-0.4); Eosinophils % 0.9 % (0.1-12.0); Hematocrit 39.6 % (37.0-47.0); Hemoglobin 12.9 g/dL (12.2-16.2); Lymphocytes # 1.8 K/mm3 (0.7-4.5); Lymphocytes % 16.3 % (10-50); Mean Corpuscular HGB Conc 32.6 g/dL (31.8-35.4); Mean Corpuscular Hemoglobin 31.6 pg (27.0-31.2); Mean Corpuscular Volume 97.1 fl (81-99); Mean Platelet Volume 10.6 fl (7.4-10.4); Monocytes # 1.2 K/mm3 (0.1-1.0); Monocytes % 10.2 % (1.7-9.3); Neutrophils # 8.1 K/mm3 (1.8-7.8); Neutrophils % 71.8 % (37.0-80.0); Platelet Count 188 K/mm3 (142-424); Red Blood Count 4.08 M/mm3 (4.20-5.40); Red Cell Distribution Width 13.7 % (11.5-17.5); White Blood Count 11.3 K/mm3 (4.8-10.8)
[2024-09-30 07:13] LABS: Chloride 100 mmol/L (98-107)
[2024-09-30 07:14] LABS: Sodium 141 mmol/L (136-145)
[2024-09-30 07:17] LABS: Anion Gap 7.9 mEq/L (5-15); Blood Urea Nitrogen 28 mg/dl (7-17); Calcium 8.6 mg/dl (8.4-10.2); Carbon Dioxide 36 mmol/L (22.0-30.0); Creatinine Clearance Estimated 60 mL/min (50-200); Estimated Glomerular Filt Rate 48 ml/min (>60); GFR (African American) 58 ML/MIN (>60); Glucose 102 mg/dl (74-100)
[2024-09-30] MEDS: FUROSEMIDE 100MG/10ML VIAL 80 MG IV ×2 (08:08→15:21)
[2024-09-30] MEDS: SPIRONOLACTONE 25MG TABLET 25 MG PO (08:09)
[2024-09-30] MEDS: predniSONE 20MG TAB 40 MG PO (08:09)
[2024-09-30] MEDS: HEPARIN SODIUM 5,000 UNIT/ML VIAL 5000 UNIT SUBCUT ×3 (08:09→20:26)
[2024-09-30 08:14] LABS: Potassium 2.9 mmoL/L (3.5-5.1)
[2024-09-30 09:29] LABS: Magnesium 1.4 mg/dl (1.6-2.3)
[2024-09-30] MEDS: MAGNESIUM SULFATE IN WATER 2 GM/50 ML PIGGYBACK IV ×3 (10:34→12:51)
[2024-09-30] MEDS: POTASSIUM CHLORIDE 20MEQ TAB 40 MEQ PO ×3 (10:35→18:01)
[2024-09-30] MEDS: ACETAMINOPHEN 325MG TAB 650 MG PO ×2 (12:52→21:39)
--- NOTE | 2024-09-30 13:57 | SW/DCPLANNER ---
Addendum entered by Glenna Noe 10/03/24 10:02: Care [facility] has accepted patient. Kervin Quan Addendum entered by Glenna Noe 10/03/24 08:14: Faxed patient's info to [facility]. Will update once we hear back from home health. Kervin Quan Original Note: I spoke w/ this patient and her daughter regarding plans once medically stable for discharge. PT/OT evaluated patient and recommended home w/ home health services. Patient is agreeable to home health and does not have an agency preference. I will set up home health at time of discharge. Discharge date is unknown at this time.
--- NOTE | 2024-09-30 14:37 | CARE MANAGER ---
Patient has O2 at night, but will require continuous. Patient has O2 through [facility], but requested [facility]. Information sent to [facility] and they will deliver portable and switch out concentrators next week.
--- NOTE | 2024-09-30 14:44 | HMH.OTEV ---
OT Inpatient Evaluation Rehab OT IP Evaluation Start: 09/30/24 10:14 Freq: ONCE Status: Active Protocol: Document 09/30/24 14:38 DIGNAIRVING (Rec: 09/30/24 14:43 [facility] [id number]) Rehab OT IP Assessment Subjective History Pt oriented x 3 on arrival. Pt agreeable to engage in therapy evaluation. Pt admitted on 09/28/24 due to CHF exacerbation. History and physical: This is a 79-year-old female who was a past medical history significant lung nodule, acute on chronic hypoxic respiratory failure, diastolic congestive heart failure, coronary artery disease, CKD, COPD, and hypertension who presents with a chief complaint of shortness of breath. Due to patient symptoms, she presented to the emergency room for evaluation . While in emergency room, chest x-ray revealed cardiomegaly and bilateral fibro atelectatic changes. BNP was 2760. Due to these findings, patient has been admitted for further management. During my evaluation of the patient, patient states she has been having shortness of breath for some time. She reports having difficulty laying flat for approximately 2-3 days. She normally sleeps in a recliner and cannot recline the chair to breathe. She felt as if it was smothering her. She reports her shortness of breath has worsened over the past couple of weeks. She also reports having a productive cough with thick white sputum. She is currently denying any weight gain, chest pain, lightheadedness, dizziness, fever, chills, rigors, nausea, vomiting, or diarrhea. Additional pertinent vitals obtained including bicarb of 33, BUN of 36, creatinine 1.1, GFR 48, blood glucose 119, alkaline phosphate 127, BNP at 2760, albumin 3.3, red blood cell count of 4.5, pH is 7.35, and pCO2 of 53.. Subjective I live on one end of the house and they live on the other. Pt reports prior to being in the hospital, pt lived with her daughter in a mother in law suite connected to their house. Pt claims normally she is independent with all ADLs. She does use a walker during functional transfers as needed. Pt is dependent upon family for completion of all IADLs. Pt no longer drives. Pt does wear o2 at night. Objective Patient Orientation Person,Place,Birthday Right Upper Extremity Gross ROM WFL Left Upper Extremity Gross ROM WFL Transfer Training Sit/Stand Transfer Assist Level Supervision/Stand by Chair Transfer Ability Supervision/Stand by Chair Transfer Technique Sit to/from Ambulatory Chair Transfer Assistive Devices Rolling Walker Lower Body Dressing Ability Standby Assistance Performing Toilet Hygiene Ability Standby Assistance Overall Commode/Toilet Transfer Ability Standby Assistance Commode/Toilet Transfer Technique Sit to/from Ambulatory Rehab OT IP prob,goals,plan Problems Date of Evaluation: 09/30/24 Rehab Potential Rehab Potential Innapropriate for Skilled Therapy Discharge Plan OT Discharge Plan Pt appears to be at her baseline with functional transfers and ADL independence . Pt can return home with family assistance once she is medically stable per physician . Therapist recommends OT evaluation for environmental assessment to increase safety and independence at home. Eval Complexity Eval Charge Codes 09886 - Moderate Complexity PHYSICIAN CERTIFICATION: I certify the specified therapy services for Francine Burns are required, authorized, and reviewed every 30 days.
--- NOTE | 2024-09-30 16:05 | HMH.PTEV ---
Physical Therapy Evaluation Rehab PT IP Evaluation Start: 09/30/24 10:13 Freq: ONCE Status: Active Protocol: Document 09/30/24 16:01 ARLEN (Rec: 09/30/24 16:05 ARLEN [id number]) Subjective/History History History 79-year-old female who was a past medical history significant lung nodule, acute on chronic hypoxic respiratory failure, diastolic congestive heart failure, coronary artery disease, CKD, COPD, and hypertension who presents with a chief complaint of shortness of breath. She reports she lives with her daughter, 1 DEL the home, and she is generally independent with all mobility and ADLs with RW as needed at baseline. Subjective Subjective Pt reports no c/o this pm and readily agrees to mobility assessment. Oxygen on via NC at all time during treatment. Rehab PT IP Eval Objective Appearance Patient Behavior Appropriate Patient Orientation Person,Place,Time Difficulty following instructions none Speech Pattern Clear Ambulation Patient Able to Ambulate Yes Ambulation Observation IP General Gait Pattern Observation No Deviations/Normal Ambulation Distance (feet) 40 Ambulation Assistive Device None Ambulation Ability Supervision/Stand by Balance Ability to Arise Able, uses arms to help Sitting Balance Steady, safe Standing Balance Steady, wide stance Dynamic Sitting Balance Ability Good Dynamic Standing Balance Ability Good Transfers Bed Transfer Ability Contact Guard/Hand Hold Chair Transfer Ability Supervision/Stand by Sit to Stand Bed Transfer Ability Supervision/Stand by Sit to Stand Chair Transfer Ability Supervision/Stand by Rehab PT IP prob,goals,plan Problems Date of Evaluation: 09/30/24 Discharge Plan PT Discharge Plan Pt is currently at baseline for all mobility at this time and is appropriate to return home once medically stable for d/c. No current need for inpatient therapy services. Eval Complexity Eval Charge Codes 45582 - High Complexity PHYSICIAN CERTIFICATION: I certify the specified therapy services for Francine Burns are required, authorized, and reviewed every 30 days.
--- NOTE | 2024-09-30 21:01 | EXP.PN ---
Subjective *Date: 10/05/24 *Time: 13:58 Interval history: Continues to have significant peripheral edema likely causing recurrent falls in the past few weeks. Will continue diuresis for the time being, anticipate discharge tomorrow with continued improvement. Exam Data for Last 24 hours Vital signs and Labs for Last 24 Hours: Temp Pulse Resp BP Pulse Ox O2 Del Method O2 Flow Rate 98.1 F 73 17 137/95 H 94 L Nasal Cannula 2 09/30/24 19:38 09/30/24 19:38 09/30/24 19:38 09/30/24 19:38 09/30/24 19:38 09/30/24 19:38 09/30/24 19:38 Laboratory Results - last 24 hr 09/29/24 01:30: Urine Color Yellow, Urine Appearance Clear, Urine pH 6.0, Ur Specific [place] 1.015, Urine Protein Negative, Urine Glucose (UA) Negative, Urine Ketones Negative, Urine Blood Negative, Urine Nitrate Positive A, Urine Bilirubin Negative, Urine Urobilinogen 0.2, Ur Leukocyte Esterase Trace, Urine WBC 3-5, Ur Squamous Epith Cells 5-10, Amorphous Sediment 1+, Urine Bacteria 2+ 09/30/24 06:24: WBC 11.3 H D, RBC 4.08 L, Hgb 12.9, Hct 39.6, MCV 97.1, MCH 31.6 H, MCHC 32.6, RDW 13.7, Plt Count 188, MPV 10.6 H, Neut % (Auto) 71.8, Lymph % (Auto) 16.3, [place] % (Auto) 10.2 H, Eos % (Auto) 0.9, Baso % (Auto) 0.3, Neut # (Auto) 8.1 H, Lymph # (Auto) 1.8, [place] # (Auto) 1.2 H, Eos # (Auto) 0.1, Baso # (Auto) 0.0, Sodium 141, Potassium 2.9 L*, Chloride 100, Carbon Dioxide 36 H, Anion Gap 7.9, BUN 28 H, Creatinine 1.10 H D, Estimated Creat Clear 60, Estimated GFR 48 L, Est GFR ( Amer) 58 L D, Glucose 102 H, Calcium 8.6, Magnesium 1.4 L D I & O for Last 24 hours: Intake & Output 02/07/1109/28/24 09/29/24 09/30/24 23:59 23:59 23:59 23:59 Intake Total 1480 / 1720 1320 / 1320 Output Total 0 / 400 1900 / 1900 0 / 0 Balance 0 / 150 -420 / -180 1320 / 1320 Weight 94.347 kg 94.445 kg 91.62 kg Microbiology Reports for the Last 24 Hours: Microbiology 09/29/24 01:30 Urine,Clean Catch Urine Culture - Preliminary Gram Negative Rods Constitutional Constitutional: no acute distress *Routine HEENT Exam Head: Present normocephalic Eye: Present EOMI and PERRL ENT: Present mucous membranes moist *Routine Neck Exam Neck: Present supple; Absent lymphadenopathy *Routine Respiratory Exam Respiratory: Present CTA bilaterally *Routine Cardiovascular Exam Cardiovascular: Present RRR *Routine Abdominal Exam Abdominal: Present soft and normoactive bowel sounds; Absent tenderness *Routine Extremities Exam Extremities: Present edema; Absent cyanosis or clubbing Comments: Lower extremity pitting edema 3+. *Routine Skin Exam Skin: Present warm; Absent rash *Routine Neurological Exam Neurological: Present alert and oriented X3 Assessment and Plan *Assessment and plan (1) COPD exacerbation: Status: Acute Category: Medical Code(s): J44.1 - Chronic obstructive pulmonary disease with (acute) exacerbation (2) Hypervolemia: Status: Acute Qualifiers: Hypervolemia type: unspecified Qualified Code(s): E87.70 - Fluid overload, unspecified Category: Medical Code(s): E87.70 - Fluid overload, unspecified (3) CHF exacerbation: Status: Acute Qualifiers: Heart failure type: diastolic Qualified Code(s): I50.33 - Acute on chronic diastolic (congestive) heart failure Category: Medical Code(s): I50.9 - Heart failure, unspecified Plan Francine Burns is a 79-year-old female who was admitted for acute hypoxic respiratory failure secondary to HFpEF exacerbation, COPD exacerbation. #Acute hypoxic respiratory failure #HFpEF exacerbation #Right heart failure ? Progressive shortness of breath, elevated BNP, pulmonary edema on chest imaging, peripheral edema 3+. ? History of grade 1 diastolic dysfunction. Takes Lasix 80 mg daily at home. ? Continues to have net negative urine output, though not documented well. Lower extremity edema looking better. ? Increase Lasix to 80 mg twice daily, started spironolactone 25 mg. ? ECHO reveals LV grade 2 diastolic dysfunction, moderate RV dilation with moderate reduction in RV function, Elevated RVSP 45 to 50 mmHg. ? Continue fluid restriction 1500 mL. ? Continue 3 L nasal cannula, desaturating to 86% on room air. Wean as tolerated. ? Will continue inpatient diuresis given recurrent falls at home likely due to significant lower extremity edema. #COPD exacerbation ? Continue DuoNebs every 6 hours, prednisone 40 mg daily. #Recurrent falls ? Has had recurrent falls at home. PT/OT consulted, recommended home with home health. #CAD ? Continue aspirin, bisoprolol. Full code DVT prophylaxis: Lovenox 40 mg
[2024-10-01] VITALS: BP 113/53; PULSE 60; RESP 17; TEMP 36.7; O2SAT 93
[2024-10-01] MEDS: HYDROCODONE/APAP 5/325 MG TABLET 1 TAB PO (02:17)
[2024-10-01 04:00] VITALS: BP 109/56; PULSE 65; RESP 17; TEMP 36.7; O2SAT 92; BMI 40.0
--- NOTE | 2024-10-01 05:17 | PC.NURSE ---
Pt A&OX4 and has tolerated 2L nasal cannula. She has been up to the chair the majority of the shift. She has ambulated around the room with standby assist. She has complained of arm pain 2 times this shift and was medicated per MAR. Family has remained at bedside throughout the shift. No complaints at this time, call light within reach.
[2024-10-01] MEDS: IPRATROPIUM/ALBUTEROL 3 ML NEB IH ×2 (06:39→11:29)
[2024-10-01 06:40] VITALS: PULSE 60; PULSE 63; O2SAT 95
[2024-10-01 07:20] LABS: Basophils % 0.4 % (0.1-2.0); Eosinophils # 0.1 K/mm3 (0.0-0.4); Eosinophils % 1.3 % (0.1-12.0); Hematocrit 40.8 % (37.0-47.0); Lymphocytes # 1.4 K/mm3 (0.7-4.5); Lymphocytes % 15.3 % (10-50); Mean Corpuscular HGB Conc 31.9 g/dL (31.8-35.4); Mean Corpuscular Hemoglobin 30.9 pg (27.0-31.2); Mean Corpuscular Volume 96.9 fl (81-99); Mean Platelet Volume 10.4 fl (7.4-10.4); Monocytes # 0.9 K/mm3 (0.1-1.0); Monocytes % 9.9 % (1.7-9.3); Neutrophils # 6.6 K/mm3 (1.8-7.8); Neutrophils % 72.5 % (37.0-80.0); Platelet Count 209 K/mm3 (142-424); Red Blood Count 4.21 M/mm3 (4.20-5.40); Red Cell Distribution Width 14.5 % (11.5-17.5); White Blood Count 9.1 K/mm3 (4.8-10.8)
[2024-10-01 07:24] LABS: Chloride 102 mmol/L (98-107)
[2024-10-01 07:25] LABS: Potassium 4.2 mmoL/L (3.5-5.1); Sodium 140 mmol/L (136-145)
[2024-10-01 07:28] LABS: Anion Gap 8.2 mEq/L (5-15); Blood Urea Nitrogen 32 mg/dl (7-17); Calcium 8.6 mg/dl (8.4-10.2); Carbon Dioxide 34 mmol/L (22.0-30.0); Creatinine Clearance Estimated 55 mL/min (50-200); Estimated Glomerular Filt Rate 43 ml/min (>60); GFR (African American) 52 ML/MIN (>60); Glucose 107 mg/dl (74-100)
[2024-10-01 08:00] VITALS: BP 124/59; PULSE 71; RESP 18; TEMP 36.6; O2SAT 91
[2024-10-01] MEDS: CEFTRIAXONE 1 GM 1 GM in 0.9 % SODIUM CHLORIDE 50 ML IV (08:42)
[2024-10-01] MEDS: FUROSEMIDE 100MG/10ML VIAL 80 MG IV (08:43)
[2024-10-01] MEDS: HEPARIN SODIUM 5,000 UNIT/ML VIAL 5000 UNIT SUBCUT (08:44)
[2024-10-01] MEDS: predniSONE 20MG TAB 40 MG PO (08:44)
[2024-10-01] MEDS: SPIRONOLACTONE 25MG TABLET 25 MG PO (08:44)
[2024-10-01] MEDS: ACETAMINOPHEN 325MG TAB 650 MG PO (08:55)
[2024-10-01 11:30] VITALS: PULSE 60; PULSE 64; O2SAT 92
[2024-10-01 12:00] VITALS: BP 122/72; PULSE 63; RESP 20; TEMP 36.6; O2SAT 92
--- NOTE | 2024-10-01 14:15 | EXP.DC.SUM ---
General Admission date:: 09/28/24 HPI HPI HPI: This is a 79-year-old female who was a past medical history significant lung nodule, acute on chronic hypoxic respiratory failure, diastolic congestive heart failure, coronary artery disease, CKD, COPD, and hypertension who presents with a chief complaint of shortness of breath. Due to patient symptoms, she presented to the emergency room for evaluation. While in emergency room, chest x-ray revealed cardiomegaly and bilateral fibro atelectatic changes. BNP was 2760. Due to these findings, patient has been admitted for further management. During my evaluation of the patient, patient states she has been having shortness of breath for some time. She reports having difficulty laying flat for approximately 2-3 days. She normally sleeps in a recliner and cannot recline the chair to breathe. She felt as if it was smothering her. She reports her shortness of breath has worsened over the past couple of weeks. She also reports having a productive cough with thick white sputum. She is currently denying any weight gain, chest pain, lightheadedness, dizziness, fever, chills, rigors, nausea, vomiting, or diarrhea. Additional pertinent vitals obtained including bicarb of 33, BUN of 36, creatinine 1.1, GFR 48, blood glucose 119, alkaline phosphate 127, BNP at 2760, albumin 3.3, red blood cell count of 4.5, pH is 7.35, and pCO2 of 53.., Hospital Course Hospital Course Hospital Course: Saturating 86% on room air at rest. Requiring 2 L nasal cannula for appropriate saturations. Francine Burns is a 79-year-old female who was admitted for acute hypoxic respiratory failure secondary to HFpEF exacerbation, COPD exacerbation. #Acute hypoxic respiratory failure #HFpEF exacerbation #Right heart failure ? Progressive shortness of breath, elevated BNP, pulmonary edema on chest imaging, peripheral edema 3+. ? History of grade 1 diastolic dysfunction. Takes Lasix 80 mg daily at home. ? ECHO during admission revealed LV grade 2 diastolic dysfunction, moderate RV dilation with moderate reduction in RV function, Elevated RVSP 45 to 50 mmHg. ? Continues to have net negative urine output, though not documented well. Lower extremity edema looking better. ? Clinically improved with increasing Lasix to 80 mg twice daily, previously recommended by cardiology, and starting spironolactone 25 mg. ? Discharged with Lasix 80 mg twice daily, spironolactone 25 mg daily. Advised to follow-up with cardiology within 1 week, SGLT2i can be considered at that time once euvolemic. #Hypertension ? Hold home losartan 100 mg given stable normal pressures. Will follow-up with PCP/cardiology within 1 week for further evaluation management. #COPD exacerbation ? Improved with DuoNebs, prednisone. #Recurrent falls ? Has had recurrent falls at home. PT/OT consulted, recommended home with home health. #CAD ? Continue aspirin, bisoprolol. Total time spent on discharge: 32 minutes on chart review, counseling, documentation, and direct care with patient. Exam Data for Last 24 hours Vital signs and Labs for Last 24 Hours: Temp Pulse Resp BP Pulse Ox O2 Del Method O2 Flow Rate 97.8 F 63 20 122/72 92 L Nasal Cannula 2 10/01/24 12:00 10/01/24 12:00 10/01/24 12:10/01/24 12:10/01/24 12:10/01/24 13:00 10/01/24 13:00 Laboratory Results - last 24 hr 10/01/24 06:42: WBC 9.1, RBC 4.21, Hgb 13.0, Hct 40.8, MCV 96.9, MCH 30.9, MCHC 31.9, RDW 14.5, Plt Count 209, MPV 10.4, Neut % (Auto) 72.5, Lymph % (Auto) 15.3, [place] % (Auto) 9.9 H, Eos % (Auto) 1.3, Baso % (Auto) 0.4, Neut # (Auto) 6.6, Lymph # (Auto) 1.4, [place] # (Auto) 0.9, Eos # (Auto) 0.1, Baso # (Auto) 0.0, Sodium 140, Potassium 4.2 D, Chloride 102, Carbon Dioxide 34 H, Anion Gap 8.2, BUN 32 H, Creatinine 1.20 H, Estimated Creat Clear 55, Estimated GFR 43 L, Est GFR ( Amer) 52 L, Glucose 107 H, Calcium 8.6 I & O for Last 24 hours: Intake & Output 09/28/24 09/29/24 09/30/24 10/01/24 23:59 23:59 23:59 23:59 Intake Total 1480 / 1720 1320 / 1520 1230 / 1230 Output Total 0 / 400 1900 / 1900 0 / 300 750 / 750 Balance 0 / 150 -420 / -180 1320 / 1220 480 / 480 Weight 94.347 kg 94.445 kg 91.62 kg 92.533 kg Microbiology Reports for the Last 24 Hours: Microbiology 09/29/24 01:30 Urine,Clean Catch Urine Culture - Final Escherichia coli Constitutional Constitutional: no acute distress *Routine HEENT Exam Head: Present normocephalic Eye: Present EOMI and PERRL ENT: Present mucous membranes moist *Routine Neck Exam Neck: Present supple; Absent lymphadenopathy *Routine Respiratory Exam Respiratory: Present CTA bilaterally *Routine Cardiovascular Exam Cardiovascular: Present RRR *Routine Abdominal Exam Abdominal: Present soft and normoactive bowel sounds; Absent tenderness *Routine Extremities Exam Extremities: Present edema; Absent cyanosis or clubbing Comments: Lower extremity pitting edema 2+. *Routine Skin Exam Skin: Present warm; Absent rash *Routine Neurological Exam Neurological: Present alert and oriented X3 Results Data Completed and Pending Labs on day of discharge: Labs from last 24 hours 10/01/24 06:42 WBC 9.1 RBC 4.21 Hgb 13.0 Hct 40.8 MCV 96.9 MCH 30.9 MCHC 31.9 RDW 14.5 Plt Count 209 MPV 10.4 Neut % (Auto) 72.5 Lymph % (Auto) 15.3 [place] % (Auto) 9.9 H Eos % (Auto) 1.3 Baso % (Auto) 0.4 Neut # (Auto) 6.6 Lymph # (Auto) 1.4 [place] # (Auto) 0.9 Eos # (Auto) 0.1 Baso # (Auto) 0.0 Sodium 140 Potassium 4.2 D Chloride 102 Carbon Dioxide 34 H Anion Gap 8.2 BUN 32 H Creatinine 1.20 H Estimated Creat Clear 55 Estimated GFR 43 L Est GFR ( Amer) 52 L Glucose 107 H Calcium 8.6 DS: Diagnosis Discharge Diagnosis (1) CHF exacerbation: Status: Acute Code(s): I50.9 - Heart failure, unspecified Qualifiers: Heart failure type: diastolic Qualified Code(s): I50.33 - Acute on chronic diastolic (congestive) heart failure (2) Acute on chronic respiratory failure with hypoxia and hypercapnia: Status: Acute Code(s): J96.21 - Acute and chronic respiratory failure with hypoxia; J96.22 - Acute and chronic respiratory failure with hypercapnia (3) Acute kidney injury superimposed on chronic kidney disease: Status: Acute Code(s): N17.9 - Acute kidney failure, unspecified; N18.9 - Chronic kidney disease, unspecified (4) Hypervolemia: Status: Acute Code(s): E87.70 - Fluid overload, unspecified Qualifiers: Hypervolemia type: unspecified Qualified Code(s): E87.70 - Fluid overload, unspecified (5) COPD exacerbation: Status: Acute Code(s): J44.1 - Chronic obstructive pulmonary disease with (acute) exacerbation Meds Home Medications and Allergies Home Medications ?Medication ?Instructions ?Recorded ?Confirmed ?Type aspirin 81 mg chewable tablet 81 mg PO DAILY 09/30/18 10/12/24 History albuterol sulfate 90 mcg/actuation 2 puff inhalation QIDP PRN 07/02/22 10/12/24 History aerosol inhaler Shortness Of Breath ipratropium 0.5 mg-albuterol 3 mg 3 ml inhalation Q6H PRN shortness 02/18/23 10/12/24 Rx (2.5 mg base)/3 mL nebulization of breath or wheezing #180 mL soln bisoprolol fumarate 10 mg tablet 10 mg PO BID 09/29/24 10/12/24 History escitalopram oxalate 5 mg tablet 5 mg PO DAILY 09/29/24 10/12/24 History fluticasone fur. 100 mcg-umeclid 1 inh inhalation DAILY 09/29/24 10/12/24 History 62.5 mcg-vilant 25 mcg inhalat.powder (Trelegy Ellipta) losartan 100 mg tablet 100 mg PO DAILY 09/29/24 10/12/24 History spironolactone 25 mg tablet 25 mg PO BID 09/29/24 10/12/24 History furosemide 80 mg tablet 80 mg PO BID 30 days #60 tabs 10/01/24 10/12/24 Rx hydrocodone 5 mg-acetaminophen 325 1 tab PO DAILYP PRN pain #120 tabs 10/12/24 10/12/24 Rx mg tablet ondansetron HCl 4 mg tablet 4 mg PO DAILY PRN nausea and 10/17/24 Rx vomiting #30 tabs New Prescriptions to Start Prescriptions: Rodriguez Acosta Allergies Allergy/AdvReac Type Severity Reaction Status Date / Time Penicillins Allergy Hives Verified 10/12/24 15:11 Sulfa (Sulfonamide Allergy Gastrointestinal Verified 10/12/24 15:11 Antibiotics) Upset Discharge Plan Disposition Patient Disposition: Home, Self-Care Condition: Fair Follow up Plan Follow up with: Fortino Jackson MD [Staff Physician] - Enter time for follow up (please call office for follow up appointment) Prescriptions/Medication Reconciliation: Continued albuterol sulfate 90 mcg/actuation HFA aerosol inhaler 2 puff inhalation QIDP PRN (Reason: Shortness Of Breath) ipratropium-albuterol 0.5 mg-3 mg(2.5 mg base)/3 mL solution for nebulization 3 ml inhalation Q6H PRN (Reason: shortness of breath or wheezing) Qty: 180 3RF aspirin 81 MG tablet,chewable 81 mg PO DAILY Trelegy Ellipta 100-62.5-25 mcg Blister With Device 1 inh INHALATION DAILY spironolactone 25 mg Tablet 25 mg PO BID bisoprolol fumarate 10 mg tablet 10 mg PO BID Rx Instructions: TAKE 1 TABLET TWICE DAILY FOR BLOOD PRESSURE escitalopram oxalate 5 mg tablet 5 mg PO DAILY Rx Instructions: TAKE 1 TABLET ONCE A DAY FOR MOOD Changed furosemide 80 mg tablet 80 mg PO BID 30 Days Qty: 60 0RF Rx Instructions: TAKE 1 TABLET TWICE DAILY Held losartan 100 mg Tablet 100 mg PO DAILY Hold Instructions: Resume on 10/15/24. Your blood pressure has been stable without this medication. 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 No Action hydrocodone-acetaminophen 5-325 mg tablet 1 tab PO DAILYP PRN (Reason: pain) Qty: 120 0RF ondansetron HCl 4 mg tablet 4 mg PO DAILY PRN (Reason: nausea and vomiting) Qty: 30 0RF Problem Reconciliation Problems Reviewed?: Yes Patient Discharge Instructions Patient Instructions: Heart-Healthy Diet, DI for Heart Failure, DI for Chronic Obstructive Pulmonary Disease, DI for Urinary Tract Infection (UTI) Print Language: Dominican Providers Primary Care Provider: Jace Cancino Admit Provider: Rodriguez Sibley Attending Provider: Rodriguez Sibley
--- NOTE | 2024-10-03 10:40 | SW/DCPLANNER ---
Spoke with patient on the phone. Patient stated that she has not called to sit up her follow up appointment with her PCP. Patient stated that she will do that later. Patient stated that she is going to get her new medicine picked up today. Patient stated that she is going well. Patient stated that she has no conerns or questions at this time. Kervin Quan
== END 2024-10-01 15:27 | disposition home or self-care (01) ==
LOC: ER 15:31 → 2ND 18:01
PROVIDERS: Nurse Practitioner Family; Admitting Provider Student in an Organized Health Care Education/Training Program; Emergency Provider Emergency Medicine; PCP Family Medicine; Visit Provider Student in an Organized Health Care Education/Training Program
DX: J44.1 Chronic obstructive pulmonary disease with (acute) exacerbation (principal); I50.33 Acute on chronic diastolic (congestive) heart failure; I13.0 Hypertensive heart and chronic kidney disease with heart failure and stage 1 through stage 4 chronic kidney disease, or unspecified chronic kidney disease; Z68.41 Body mass index [BMI] 40.0-44.9, adult; N18.30 Chronic kidney disease, stage 3 unspecified; E66.9 Obesity, unspecified; I25.10 Atherosclerotic heart disease of native coronary artery without angina pectoris; E78.5 Hyperlipidemia, unspecified; J44.89 Other specified chronic obstructive pulmonary disease; Z95.0 Presence of cardiac pacemaker; Z79.82 Long term (current) use of aspirin; Z79.899 Other long term (current) drug therapy; Z88.0 Allergy status to penicillin; Z87.891 Personal history of nicotine dependence; Z88.2 Allergy status to sulfonamides; Z91.81 History of falling; J96.21 Acute and chronic respiratory failure with hypoxia; Z99.81 Dependence on supplemental oxygen; R91.1 Solitary pulmonary nodule; Z82.3 Family history of stroke; Z80.9 Family history of malignant neoplasm, unspecified; Z82.49 Family history of ischemic heart disease and other diseases of the circulatory system
CPT/HCPCS: 36415; 71045; 80048; 80053; 80061; 81001; 82803; 83036; 83735; 83880; 84484; 85025; 85610; 85730; 87086; 87088; 87186; 87636; 93005; 93306; 94640; 94761; 97163; 97166; 99285; G0378; J0696; J1644; J1940; J3475; J7620

== ENCOUNTER 2024-10-05 20:22 | Emergency (ER) | payer MEDICARE, SELFPAY ==
[2024-10-05] VITALS (8 sets, daily range): BP systolic 120–140; BP diastolic 54–69; PULSE 56–71; RESP 26; TEMP 36.4; O2SAT 86–98; BMI 38.5
--- NOTE | 2024-10-05 20:34 | HMH.EDGENADL ---
Discharge Plan Disposition Patient Disposition: Home, Self-Care Chief Complaint: Shortness of Breath/Dyspnea Prescriptions Prescriptions: No Action albuterol sulfate 90 mcg/actuation HFA aerosol inhaler 2 puff inhalation QIDP PRN (Reason: Shortness Of Breath) ipratropium-albuterol 0.5 mg-3 mg(2.5 mg base)/3 mL solution for nebulization 3 ml inhalation Q6H PRN (Reason: shortness of breath or wheezing) Qty: 180 3RF aspirin 81 MG tablet,chewable 81 mg PO DAILY Trelegy Ellipta 100-62.5-25 mcg Blister With Device 1 inh INHALATION DAILY spironolactone 25 mg Tablet 25 mg PO BID losartan 100 mg Tablet 100 mg PO DAILY bisoprolol fumarate 10 mg tablet 10 mg PO BID Rx Instructions: TAKE 1 TABLET TWICE DAILY FOR BLOOD PRESSURE escitalopram oxalate 5 mg tablet 5 mg PO DAILY Rx Instructions: TAKE 1 TABLET ONCE A DAY FOR MOOD hydrocodone-acetaminophen 5-325 mg tablet 1 tab PO DAILYP PRN (Reason: pain) prednisone 20 mg Tablet 40 mg PO DAILY 2 Days Qty: 4 0RF furosemide 80 mg tablet 80 mg PO BID 30 Days Qty: 60 0RF Rx Instructions: TAKE 1 TABLET TWICE DAILY Referrals Follow up/Referrals: Fortino Jackson MD [Primary Care Provider] - See instructions Activity Restrictions/Add. Instructions Additional Instructions/Restrictions: Follow-up with your family doctor within 1 week to establish care for this visit to the emergency department and ensure improvement. Have them draw labs to follow your kidney function. Hold your Lasix (diuretic) tomorrow, 10/06 and begin taking it 10/07 again. If you have any other concerning signs or symptoms, return to the emergency department for further evaluation. Clinical Impressions Clinical Impression: ANTHONY (acute kidney injury), Alkalosis, metabolic Print Language Print Language: Yoruba Discharge ED Provider: Afshin Michelle General Adult HPI <TONO Lee - Last Filed: 10/05/24 21:41> General Chief complaint: Shortness of Breath/Dyspnea Stated complaint: nausea, shaky, chest pressure Time Seen by Provider: 10/05/24 20:34 History of Present Illness HPI narrative: Patient presents for evaluation of headache chest heaviness and nausea. Patient was recently admitted to our facility from 09/28/2024 to 09/30/2024 for a CHF exacerbation and acute on chronic hypoxemic respiratory failure along with volume overload and acute on chronic kidney injury. Patient was ultimately diuresed and discharged home. Patient reports that she has been having a headache and nausea and chest heaviness today. She denies increased shortness of breath oxygen requirements increased work of breathing and denies chest pain. She describes it as someone standing on my chest. She has not had any vomiting fever chills hemoptysis hematochezia melena diarrhea. Related Data Home Medications ?Medication ?Instructions ?Recorded ?Confirmed aspirin 81 mg chewable tablet 81 mg PO DAILY 09/30/18 09/28/24 albuterol sulfate 90 mcg/actuation 2 puff inhalation QIDP PRN 07/02/22 09/29/24 aerosol inhaler Shortness Of Breath bisoprolol fumarate 10 mg tablet 10 mg PO BID 09/29/24 09/29/24 escitalopram oxalate 5 mg tablet 5 mg PO DAILY 09/29/24 09/29/24 fluticasone fur. 100 mcg-umeclid 1 inh inhalation DAILY 09/29/24 09/29/24 62.5 mcg-vilant 25 mcg inhalat.powder (Trelegy Ellipta) hydrocodone 5 mg-acetaminophen 325 1 tab PO DAILYP PRN pain 09/29/24 09/29/24 mg tablet losartan 100 mg tablet 100 mg PO DAILY 09/29/24 09/29/24 spironolactone 25 mg tablet 25 mg PO BID 09/29/24 09/29/24 Previous Rx's ?Medication ?Instructions ?Recorded ipratropium 0.5 mg-albuterol 3 mg 3 ml inhalation Q6H PRN shortness 02/18/23 (2.5 mg base)/3 mL nebulization of breath or wheezing #180 mL soln furosemide 80 mg tablet 80 mg PO BID 30 days #60 tabs 10/01/24 prednisone 20 mg tablet 40 mg (2 x 20 mg) PO DAILY 2 days 10/01/24 #4 tabs Allergies Allergy/AdvReac Type Severity Reaction Status Date / Time Penicillins Allergy Hives Verified 09/28/24 17:30 Sulfa (Sulfonamide Allergy Gastrointestinal Verified 09/28/24 17:30 Antibiotics) Upset [facility] <TONO Lee - Last Filed: 10/05/24 21:41> [facility] Disclaimer: The information contained in this section may have been updated after the patient was seen, as this information can be updated by other users. Medical History Nodule of right lung Exercise hypoxemia Asthma-chronic obstructive pulmonary disease overlap syndrome Screening for lung cancer Stopped smoking with greater than 30 pack year history Abnormality of lung on chest x-ray Dyspnea on exertion Dyspnea on exertion Atypical chest pain Dyspnea SOB (shortness of breath) Cardiac pacemaker in situ Palpitations CAD (coronary artery disease) CKD (chronic kidney disease) stage 3, GFR 30-59 ml/min Hyperlipidemia COPD (chronic obstructive pulmonary disease) Hypertension Surgical History History of permanent cardiac pacemaker placement Family History Other Cancer Heart attack Stroke Social History (Updated 09/28/24 @ 20:10 by Wendy Jara RN) Smoking Status: Never smoker second hand exposure: No alcohol intake: never substance use type: denies use current occupational status: retired and other Travel in the last 8 weeks: None household members: none housing: house current occupational exposures/hazards: No caffeine: Yes Have you lived/traveled outside [place] in past 30 days?: No Contact w/someone who lives/traveled outside US past 30 days?: No Exposure to someone with infectious disease in past 14 days?: No Do you have a fever (greater than 100.4 F or 38 C)?: No Have you tested positive for COVID-19: No Exposed to someone with COVID-19 in past 14 days?: No Do you have a sore throat?: No Do you have a cough?: No Do you have any weakness?: Yes Do you have any diarrhea?: No Are you experiencing any unusual bleeding?: No Do you have any muscle aches/pain?: Yes Do you have any abdominal pain?: Yes Are you experiencing loss of taste or smell?: No Other Medical History Have you received the Flu Vaccine for this season: No Have you received the Pneumonia Vaccine: No <TONO Lee - Last Filed: 10/05/24 21:41> ROS Obtained: Yes Systems reviewed as appropriate & no additional complaints except as documented Physical Exam <TONO Lee - Last Filed: 10/05/24 21:41> General General appearance: alert and in no apparent distress Respiratory Respiratory exam: Present wheezes (Faint end expiratory wheezes in all 4 jose) and accessory muscle use; Absent normal lung sounds bilaterally Cardiovascular Cardiovascular exam: Present regular rate Neurological Exam Neurological exam: Present alert and oriented X3 Medical Decision Making <TONO Lee - Last Filed: 10/05/24 21:41> Medical Records Medical records reviewed: Yes I reviewed the patient's medical records. Screening: Per USPSTF and CDC recommendations, given the prevalence of disease in our region, it is our hospital?s policy to screen for HIV and viral Hepatitis for all patients aged 18 and over and those with ongoing risk factors. Konrad Inquiry Pt receiving controlled substance: No Vital Signs: 10/05/24 20:23 10/05/24 20:30 10/05/24 21:00 Temperature 97.5 F L Temperature Source Oral Pulse Rate 62 56 L Pulse Rate [Apical] 68 Respiratory Rate 26 H Blood Pressure 134/54 L 131/69 Blood Pressure [Right Arm] 134/54 L Blood Pressure Mean [Right Arm] 80 02 Sat by Pulse Oximetry 86 L 95 96 Oxygen Delivery Method Room Air Nasal Cannula Nasal Cannula Oxygen Flow Rate (LPM) 2 2 10/05/24 21:30 10/05/24 22:04 10/05/24 22:30 Temperature Temperature Source Pulse Rate 61 71 60 Pulse Rate [Apical] Respiratory Rate Blood Pressure 140/68 130/69 120/62 Blood Pressure [Right Arm] Blood Pressure Mean [Right Arm] 02 Sat by Pulse Oximetry 98 92 L 92 L Oxygen Delivery Method Nasal Cannula Nasal Cannula Nasal Cannula Oxygen Flow Rate (LPM) 2 2 2 Lab Data Lab results reviewed: Yes I reviewed the patient's lab results. Lab Results 10/05/24 21:06: WBC 10.7, RBC 4.77, Hgb 14.6, Hct 46.5, MCV 97.5, MCH 30.6, MCHC 31.4 L, RDW 13.9, Plt Count 265, MPV 10.8 H, Neut % (Auto) 66.7, Lymph % (Auto) 14.6, [place] % (Auto) 12.2 H, Eos % (Auto) 5.3, Baso % (Auto) 0.6, Neut # (Auto) 7.2, Lymph # (Auto) 1.6, [place] # (Auto) 1.3 H, Eos # (Auto) 0.6 H, Baso # (Auto) 0.1, VBG pH 7.44 H, VBG pCO2 50.3, VBG pO2 75.7 H, VBG HCO3 33.3 H, VBG Total CO2 34.9 H, VBG O2 Saturation 95.2 H, VBG Base Excess 9.2 H, VBG Lactic Acid 1.6, Sodium 141, Potassium 3.6, Chloride 97 L, Carbon Dioxide 36 H, Anion Gap 11.6, BUN 53 H, Creatinine 1.50 H, Estimated Creat Clear 43, Estimated GFR 33 L, Est GFR ( Amer) 41 L, Glucose 139 H, Calcium 8.3 L, Magnesium 1.7, Total Bilirubin 0.5, AST 32, ALT 33, Alkaline Phosphatase 122, Troponin I < 0.01, NT-Pro-B Natriuret Pep 992 H, Total Protein 7.0, Albumin 3.4 L, Globulin 3.6 H, Albumin/Globulin Ratio 0.9 L, Lipase 117, Procalcitonin 0.086 10/05/24 21:06 10/05/24 21:06 Orders (Tests/Meds): ED MEDICATIONS Generic Name Dose Route Start Last Admin Trade Name Freq PRN Reason Stop Dose Admin Sodium Chloride 10 ml 10/05/24 21:57 10/05/24 21:57 Sodium Chloride 0.9% 10ml Syr (Rad Only) IV 11/04/24 21:56 10 ml NEEDED PRN Administration Maintain IV Site Discontinued Medications Generic Name Dose Route Start Last Admin Trade Name Freq PRN Reason Stop Dose Admin Acetaminophen 1,000 mg 10/05/24 20:49 10/05/24 21:33 Acetaminophen 500mg Tab PO 10/05/24 20:50 1,000 mg ONCE ONE Administration Albuterol/Ipratropium 6 ml 10/05/24 20:49 10/05/24 21:23 Ipratropium/Albuterol 3 Ml Neb IH 10/05/24 20:50 6 ml ONCE ONE Administration Dexamethasone Sodium Phosphate 10 mg 10/05/24 20:49 10/05/24 21:32 Dexamethasone 4mg/Ml 5ml Mdv IV 10/05/24 20:50 10 mg ONCE ONE Administration Lactated Ringer's 1,000 mls @ 999 mls/hr 10/05/24 21:45 10/05/24 21:49 Lactated Ringer's 1000 Ml Bag IV 10/05/24 22:45 999 mls/hr .Q1H1M ONE Administration Iopamidol 70 ml 10/05/24 21:57 10/05/24 21:57 Iopamidol-370 (76%);100ml Bottle IV 10/05/24 21:58 70 ml ONCE ONE Administration Sodium Chloride 50 ml 10/05/24 21:57 10/05/24 21:57 0.9 % Sodium Chloride 50 Ml Vial IV 10/05/24 21:58 50 ml ONCE ONE Administration ORDERS Category Date Time Status CT angio chest PE protocol Stat Cat Scan 10/05/24 20:50 Completed BNP [NT Pro Brain Natriuretic Pep.] Stat Lab 10/05/24 21:06 Completed CBC w/Auto Diff [Complete Blood Count Auto Diff] Stat Lab 10/05/24 21:06 Completed CMP [Comprehensive Metabolic Panel] Stat Lab 10/05/24 21:06 Completed Full Resp Panel w/COVID ([facility]) Routine Lab 10/05/24 21:08 Ordered Lipase Stat Lab 10/05/24 21:06 Completed Magnesium Stat Lab 10/05/24 21:06 Completed Procalcitonin Stat Lab 10/05/24 21:06 Completed Trop I [Troponin I] Stat Lab 10/05/24 21:06 Completed Troponin I Q3H Lab 10/05/24 23:50 Ordered Troponin I Q3H Lab 10/06/24 02:50 Ordered VBG [Venous Blood Gas] Stat RT 10/05/24 21:06 Completed HEART Score History (anamnesis): Slightly suspicious ECG: Non-specific disturbance Age: >65 years Risk factors: Atherosclerosis history Troponin: </= normal limit HEART Score: 5 Medical Decision Narrative: In summary patient is a 79-year-old female who presents to the emergency department for evaluation of headache nausea and chest pressure. Patient is initially normotensive at 134/54 with a heart rate of 68 normal sinus rhythm on the bedside monitor breathing 26 times a minute satting at 95% on 2 L by nasal cannula upon arrival, afebrile at 97.5. Physical exam is remarkable for faint end expiratory wheezes in all 4 jose but no increased work of breathing or accessory muscle use. No reproducible chest pain on palpation. Abdominal exam shows mild diffuse abdominal discomfort on palpation but no rebound or guarding or rigidity. Bowel sounds normal active. Patient has no dependent edema noted today.. Differential diagnosis includes ACS versus PE versus pneumonia either viral or bacterial versus respiratory tract infection either viral bacterial etc. Initial workup will be conducted with hematologic labs VBG CT PE protocol. Initial interventions include full respiratory swab DuoNeb Decadron Tylenol IV magnesium. Initial workup ordered and pending at the time of handoff to Dr. Michelle at 2200 hrs. <Afshin Michelle MD - Last Filed: 10/05/24 23:16> Vital Signs: 10/05/24 20:23 10/05/24 20:30 10/05/24 21:00 Temperature 97.5 F L Temperature Source Oral Pulse Rate 62 56 L Pulse Rate [Apical] 68 Respiratory Rate 26 H Blood Pressure 134/54 L 131/69 Blood Pressure [Right Arm] 134/54 L Blood Pressure Mean [Right Arm] 80 02 Sat by Pulse Oximetry 86 L 95 96 Oxygen Delivery Method Room Air Nasal Cannula Nasal Cannula Oxygen Flow Rate (LPM) 2 2 10/05/24 21:30 10/05/24 22:04 10/05/24 22:30 Temperature Temperature Source Pulse Rate 61 71 60 Pulse Rate [Apical] Respiratory Rate Blood Pressure 140/68 130/69 120/62 Blood Pressure [Right Arm] Blood Pressure Mean [Right Arm] 02 Sat by Pulse Oximetry 98 92 L 92 L Oxygen Delivery Method Nasal Cannula Nasal Cannula Nasal Cannula Oxygen Flow Rate (LPM) 2 2 2 Lab Data Lab Results 10/05/24 21:06: WBC 10.7, RBC 4.77, Hgb 14.6, Hct 46.5, MCV 97.5, MCH 30.6, MCHC 31.4 L, RDW 13.9, Plt Count 265, MPV 10.8 H, Neut % (Auto) 66.7, Lymph % (Auto) 14.6, [place] % (Auto) 12.2 H, Eos % (Auto) 5.3, Baso % (Auto) 0.6, Neut # (Auto) 7.2, Lymph # (Auto) 1.6, [place] # (Auto) 1.3 H, Eos # (Auto) 0.6 H, Baso # (Auto) 0.1, VBG pH 7.44 H, VBG pCO2 50.3, VBG pO2 75.7 H, VBG HCO3 33.3 H, VBG Total CO2 34.9 H, VBG O2 Saturation 95.2 H, VBG Base Excess 9.2 H, VBG Lactic Acid 1.6, Sodium 141, Potassium 3.6, Chloride 97 L, Carbon Dioxide 36 H, Anion Gap 11.6, BUN 53 H, Creatinine 1.50 H, Estimated Creat Clear 43, Estimated GFR 33 L, Est GFR ( Amer) 41 L, Glucose 139 H, Calcium 8.3 L, Magnesium 1.7, Total Bilirubin 0.5, AST 32, ALT 33, Alkaline Phosphatase 122, Troponin I < 0.01, NT-Pro-B Natriuret Pep 992 H, Total Protein 7.0, Albumin 3.4 L, Globulin 3.6 H, Albumin/Globulin Ratio 0.9 L, Lipase 117, Procalcitonin 0.086 Orders (Tests/Meds): ED MEDICATIONS Generic Name Dose Route Start Last Admin Trade Name Prisca PRN Reason Stop Dose Admin Sodium Chloride 10 ml 10/05/24 21:57 10/05/24 21:57 Sodium Chloride 0.9% 10ml Syr (Rad Only) IV 11/04/24 21:56 10 ml NEEDED PRN Administration Maintain IV Site Discontinued Medications Generic Name Dose Route Start Last Admin Trade Name Freq PRN Reason Stop Dose Admin Acetaminophen 1,000 mg 10/05/24 20:49 10/05/24 21:33 Acetaminophen 500mg Tab PO 10/05/24 20:50 1,000 mg ONCE ONE Administration Albuterol/Ipratropium 6 ml 10/05/24 20:49 10/05/24 21:23 Ipratropium/Albuterol 3 Ml Neb IH 10/05/24 20:50 6 ml ONCE ONE Administration Dexamethasone Sodium Phosphate 10 mg 10/05/24 20:49 10/05/24 21:32 Dexamethasone 4mg/Ml 5ml Mdv IV 10/05/24 20:50 10 mg ONCE ONE Administration Lactated Ringer's 1,000 mls @ 999 mls/hr 10/05/24 21:45 10/05/24 21:49 Lactated Ringer's 1000 Ml Bag IV 10/05/24 22:45 999 mls/hr .Q1H1M ONE Administration Iopamidol 70 ml 10/05/24 21:57 10/05/24 21:57 Iopamidol-370 (76%);100ml Bottle IV 10/05/24 21:58 70 ml ONCE ONE Administration Sodium Chloride 50 ml 10/05/24 21:57 10/05/24 21:57 0.9 % Sodium Chloride 50 Ml Vial IV 10/05/24 21:58 50 ml ONCE ONE Administration ORDERS Category Date Time Status CT angio chest PE protocol Stat Cat Scan 10/05/24 20:50 Completed BNP [NT Pro Brain Natriuretic Pep.] Stat Lab 10/05/24 21:06 Completed CBC w/Auto Diff [Complete Blood Count Auto Diff] Stat Lab 10/05/24 21:06 Completed CMP [Comprehensive Metabolic Panel] Stat Lab 10/05/24 21:06 Completed Full Resp Panel w/COVID ([facility]) Routine Lab 10/05/24 21:08 Ordered Lipase Stat Lab 10/05/24 21:06 Completed Magnesium Stat Lab 10/05/24 21:06 Completed Procalcitonin Stat Lab 10/05/24 21:06 Completed Trop I [Troponin I] Stat Lab 10/05/24 21:06 Completed Troponin I Q3H Lab 10/05/24 23:50 Ordered Troponin I Q3H Lab 10/06/24 02:50 Ordered VBG [Venous Blood Gas] Stat RT 10/05/24 21:06 Completed HEART Score HEART Score: 5 Medical Decision Narrative: In summary patient is a 79-year-old female who presents to the emergency department for evaluation of headache nausea and chest pressure. Patient is initially normotensive at 134/54 with a heart rate of 68 normal sinus rhythm on the bedside monitor breathing 26 times a minute satting at 95% on 2 L by nasal cannula upon arrival, afebrile at 97.5. Physical exam is remarkable for faint end expiratory wheezes in all 4 jose but no increased work of breathing or accessory muscle use. No reproducible chest pain on palpation. Abdominal exam shows mild diffuse abdominal discomfort on palpation but no rebound or guarding or rigidity. Bowel sounds normal active. Patient has no dependent edema noted today.. Differential diagnosis includes ACS versus PE versus pneumonia either viral or bacterial versus respiratory tract infection either viral bacterial etc. Initial workup will be conducted with hematologic labs VBG CT PE protocol. Initial interventions include full respiratory swab DuoNeb Decadron Tylenol IV magnesium. Initial workup ordered and pending at the time of handoff to Dr. Michelle at 2200 hrs. On my evaluation, patient very very well-appearing. Has no current complaints. States that she just feels funny, and heavy. I independently interpreted the labs, they are consistent with overdiuresis with ANTHONY creatinine 1.5 and BUN 53 consistent with prerenal injury. Patient also has contraction alkalosis with bicarb elevated at 33 and metabolic alkalosis with pH 7.44. BNP significantly downtrending 992 from nearly 3000 just a week ago. I independently interpreted patient's chest imaging and no evidence of PE or acute intrathoracic pathology. Patient given IV fluids. Recommend she follow-up with her family doctor regarding this visit to the emergency department and repeat labs. Family and patient both voiced their understanding. Was also recommended the patient hold her diuretics tomorrow, 10/06 and begin taking them on 10/07 making sure that she stays plenty hydrated. They also voiced their understanding of this. Because patient at baseline without signs or symptoms of clinical decompensation, deemed appropriate for discharge. Results were relayed to patient who voiced understanding and were agreeable to outpatient management and follow up. I discussed my clinical impression with patient and answered all questions. At this time, the evidence for any other entities in the differential is insufficient to warrant any further testing or ED observation. This was explained as well. Advisory was given that persistent or worsening symptoms require further evaluation. I confirmed the understanding of this discussion. Critical Care <TONO Lee - Last Filed: 10/05/24 21:41> Critical Care Time Critical Care Time: Yes Attestation: On 10/05/24, the high probability of a clinically significant, sudden or life threatening deterioration of the following system(s) required my full and direct attention, intervention and personal management. The time I documented below is in addition to time spent performing reported procedures but includes the following listed in this critical care notation. Total Time Total Critical Care Time: 35
--- NOTE | 2024-10-05 20:50 | CT_ITS ---
PROCEDURE INFORMATION: Exam: CTA Chest With Contrast Exam date and time: 10/05/2024 9:41 PM Age: 79 years old Clinical indication: Dyspnea; Additional info: Dyspnea and chest pain TECHNIQUE: Imaging protocol: Computed tomographic angiography of the chest with contrast. Exam focused on the arteries. 3D rendering (Not supervised by radiologist): MIP and/or 3D reconstructed images were created by the technologist. Radiation optimization: All CT scans at this facility use at least one of these dose optimization techniques: automated exposure control; mA and/or kV adjustment per patient size (includes targeted exams where dose is matched to clinical indication); or iterative reconstruction. Contrast material: ISOUVE 370; Contrast volume: 70 ml; Contrast route: INTRAVENOUS (IV); COMPARISON: CT LUNG SCREENING 06/17/2022 9:20 AM FINDINGS: Tubes, catheters and devices: Pacemaker grossly in place. Pulmonary arteries: Normal. No pulmonary emboli. Aorta: Atherosclerotic calcification of thoracic aorta without aneurysm or obvious dissection. Lungs: Stable 0.2 cm lateral right upper lateral lobar nodule. Diffuse underlying centrilobular emphysematous changes. Air trapping. Pleural spaces: Unremarkable. No pneumothorax. No pleural effusion. Heart: Unremarkable. No cardiomegaly. No pericardial effusion. Lymph nodes: Unremarkable. No enlarged lymph nodes. Gallbladder and biliary ducts: Gallstone without gallbladder wall thickening in visualized abdomen. Bones/joints: Unremarkable. No acute fracture. Soft tissues: Unremarkable. IMPRESSION: 1. No central or segmental pulmonary arterial embolism identified. 2. Stable right upper lobar pulmonary nodule. Diffuse emphysematous changes and air trapping. 3. Cholelithiasis
[2024-10-05 21:01] LABS: Adenovirus,PCR Not Detected (NotDetected); Bordetella Pertussis Not Detected (NotDetected); Chlamydophila Pneumoniae, PCR Not Detected (NotDetected); Coronavirus 19, PCR Not Detected (NotDetected); Coronavirus 229E Not Detected (NotDetected); Coronavirus NL63 Not Detected (NotDetected); Coronavirus OC43 Not Detected (NotDetected); Coronovirus HKU1,PCR Not Detected (NotDetected); Human Metapneumovirus Not Detected (NotDetected); Influenza A, PCR Not Detected (NotDetected); Influenza AH1, 2009 Not Detected (NotDetected); Influenza AH1, PCR Not Detected (NotDetected); Influenza AH3,PCR Not Detected (NotDetected); Influenza B, PCR Not Detected (NotDetected); Mycoplasma Pneumoniae, PCR Not Detected (NotDetected); Parainfluenza 1, PCR Not Detected (NotDetected); Parainfluenza 2, PCR Not Detected (NotDetected); Parainfluenza 3, PCR Not Detected (NotDetected); Parainfluenza 4, PCR Not Detected (NotDetected); Respiratory Syncytial Virus Not Detected (NotDetected); Rhinovirus/Enterovirus Not Detected (NotDetected)
[2024-10-05 21:13] LABS: Basophils # 0.1 K/mm3 (0-0.2); Basophils % 0.6 % (0.1-2.0); Eosinophils # 0.6 K/mm3 (0.0-0.4); Eosinophils % 5.3 % (0.1-12.0); Hematocrit 46.5 % (37.0-47.0); Hemoglobin 14.6 g/dL (12.2-16.2); Lymphocytes # 1.6 K/mm3 (0.7-4.5); Lymphocytes % 14.6 % (10-50); Mean Corpuscular HGB Conc 31.4 g/dL (31.8-35.4); Mean Corpuscular Hemoglobin 30.6 pg (27.0-31.2); Mean Corpuscular Volume 97.5 fl (81-99); Mean Platelet Volume 10.8 fl (7.4-10.4); Monocytes # 1.3 K/mm3 (0.1-1.0); Monocytes % 12.2 % (1.7-9.3); Neutrophils # 7.2 K/mm3 (1.8-7.8); Neutrophils % 66.7 % (37.0-80.0); Platelet Count 265 K/mm3 (142-424); Red Blood Count 4.77 M/mm3 (4.20-5.40); Red Cell Distribution Width 13.9 % (11.5-17.5); White Blood Count 10.7 K/mm3 (4.8-10.8)
[2024-10-05 21:14] LABS: Lactate Venous 1.6 mmol/L (0.4-2.0); VBG Base Excess 9.2 mmol/L (-2.4-2.3); VBG HCO3 33.3 mmol/L (23-30); VBG Oxygen Saturation 95.2 % (50-70); VBG PH 7.44 mmol/L (7.31-7.41); VBG PO2 75.7 mmol/L (28-40); VBG Total CO2 34.9 mmol/L (23-27)
[2024-10-05 21:17] LABS: VBG PCO2 50.3 mmol/L (35-51)
[2024-10-05 21:20] LABS: Albumin Level 3.4 g/dl (3.5-5.0)
[2024-10-05 21:21] LABS: Chloride 97 mmol/L (98-107); Potassium 3.6 mmoL/L (3.5-5.1); Sodium 141 mmol/L (136-145)
--- NOTE | 2024-10-05 21:21 | PC.NURSE ---
Katie from [facility] contacted with VBG results pH 7.44 Co2 50.3 BiCarb 33.3
[2024-10-05 21:23] LABS: Alanine Aminotransferase 33 U/L (12-78); Albumin/Globulin Ratio 0.9 (1.1-1.8); Alkaline Phosphatase 122 U/L (38-126); Aspartate Amino Transferase 32 U/L (14-36); Bilirubin,Total 0.5 mg/dl (0.2-1.3); Blood Urea Nitrogen 53 mg/dl (7-17); Creatinine Clearance Estimated 43 mL/min (50-200); Estimated Glomerular Filt Rate 33 ml/min (>60); GFR (African American) 41 ML/MIN (>60); Globulin 3.6 g/dL (1.3-3.2)
[2024-10-05] MEDS: IPRATROPIUM/ALBUTEROL 3 ML NEB 6 ML IH (21:23)
[2024-10-05 21:24] LABS: Calcium 8.3 mg/dl (8.4-10.2); Glucose 139 mg/dl (74-100); Lipase 117 U/L (23-300); Magnesium 1.7 mg/dl (1.6-2.3)
[2024-10-05 21:30] LABS: Anion Gap 11.6 mEq/L (5-15); Carbon Dioxide 36 mmol/L (22.0-30.0)
[2024-10-05] MEDS: DEXAMETHASONE 4MG/ML 5ML MDV 10 MG IV (21:32)
[2024-10-05 21:33] LABS: NT Pro Brain Natriuretic Pep. 992 pg/mL (0-450)
[2024-10-05] MEDS: ACETAMINOPHEN 500MG TAB 1000 MG PO (21:33)
[2024-10-05 21:38] LABS: Troponin I < 0.01 ng/ml (0.00-0.034)
[2024-10-05 21:40] LABS: Procalcitonin 0.086 ng/mL (0.0-2.0)
[2024-10-05] MEDS: LACTATED RINGERS 1000ML 1,000 ML 999 ML IV (21:49)
[2024-10-05] MEDS: 0.9 % SODIUM CHLORIDE 50 ML VIAL IV (21:57)
[2024-10-05] MEDS: IOPAMIDOL-370 (76%);100ML BOTTLE 70 ML IV (21:57)
[2024-10-05] MEDS: SODIUM CHLORIDE 0.9% 10ML SYR (RAD ONLY) 10 ML IV (21:57)
[2024-10-06 00:10] VITALS: BP 128/66; PULSE 60; RESP 22; TEMP 37.1; O2SAT 93
== END 2024-10-05 23:45 | disposition home or self-care (01) ==
PROVIDERS: Physician Assistant; Emergency Provider Emergency Medicine; PCP Internal Medicine
DX: N17.9 Acute kidney failure, unspecified (principal); E87.3 Alkalosis; R07.89 Other chest pain; R51.9 Headache, unspecified; R11.0 Nausea; R25.9 Unspecified abnormal involuntary movements
CPT/HCPCS: 71275; 80053; 82803; 83690; 83735; 83880; 84145; 84484; 85025; 87633; 96361; 96374; 99291; J1100; J7120; J7620; Q9967

== ENCOUNTER 2024-10-12 15:35 | Outpatient (CLI) | payer MEDICARE, SELFPAY ==
[2024-10-12 22:20] LABS: Chloride 91 mmol/L (98-107)
[2024-10-12 22:21] LABS: Potassium 4.1 mmoL/L (3.5-5.1); Sodium 138 mmol/L (136-145)
[2024-10-12 22:23] LABS: Blood Urea Nitrogen 27 mg/dl (7-17); Estimated Glomerular Filt Rate 43 ml/min (>60); GFR (African American) 52 ML/MIN (>60)
[2024-10-12 22:24] LABS: Anion Gap 13.1 mEq/L (5-15); Calcium 8.7 mg/dl (8.4-10.2); Carbon Dioxide 38 mmol/L (22.0-30.0); Glucose 73 mg/dl (74-100)
== END 2024-10-12 23:59 | disposition home or self-care (01) ==
LOC: LAB.DROPOF 10-13 15:14
PROVIDERS: PCP Internal Medicine; Visit Provider Internal Medicine
DX: N17.9 Acute kidney failure, unspecified (principal); N18.9 Chronic kidney disease, unspecified
CPT/HCPCS: 80048

== ENCOUNTER 2024-11-05 18:33 | Emergency (ER) | payer MEDICARE, SELFPAY ==
[2024-11-05] VITALS (18 sets, daily range): BP systolic 77–138; BP diastolic 41–71; PULSE 60–63; RESP 16–32; TEMP 36.6–36.9; O2SAT 92–99; BMI 41.8
--- NOTE | 2024-11-05 18:42 | ECG_ITS ---
APPROVED REPORT Exam: Resting ECG HR:60 bpm ECG Measurements Heart Rate 60 AXES CO 147 P 170 QRSd 94 QRS 33 QT 385 T -20 QTc 385 Conclusion ELECTRONIC ATRIAL PACEMAKER INDETERMINATE AXIS No STEMI Electronically signed by : RICHARD COTE, 11/06/2024 00:53:33
--- NOTE | 2024-11-05 18:47 | PC.NURSE ---
This RN presented to bedside to start IV. Pt stated put that shit down and take me to the bathroom . Pt's daughter assisted pt to bathroom. I attempted to give pt her home 02 tank & line back to her but she said I don't have time. I need to go now .
--- NOTE | 2024-11-05 18:56 | PC.NURSE ---
pt refuses to get in the bed and patient is very diffcult to work with and wants things done her way only. family is very nice and respectful of staff
[2024-11-05 19:15] LABS: Lactate Venous 1.7 mmol/L (0.4-2.0); VBG Base Excess 15.3 mmol/L (-2.4-2.3); VBG HCO3 41.1 mmol/L (23-30); VBG Oxygen Saturation 81.1 % (50-70); VBG PH 7.34 mmol/L (7.31-7.41); VBG PO2 47.1 mmol/L (28-40); VBG Total CO2 43.4 mmol/L (23-27)
[2024-11-05 19:16] LABS: VBG PCO2 77.5 mmol/L (35-51)
--- NOTE | 2024-11-05 19:21 | XR_ITS ---
PROCEDURE INFORMATION: Exam: XR Chest Exam date and time: 11/05/2024 7:37 PM Age: 79 years old Clinical indication: Shortness of breath; Additional info: SOA TECHNIQUE: Imaging protocol: Radiologic exam of the chest. Views: 1 view. COMPARISON: CT ANGIO CHEST PE PROTOCOL 10/05/2024 9:41 PM FINDINGS: Tubes, catheters and devices: Dual chamber pacemaker/cardioverter in appropriate position with lead tips in the right atrium and right ventricle. Airway: Airways are patent. Lungs: Mild prominence of the pulmonary vasculature. Bilateral perihilar haziness and streaky-like opacities. Mild segmental bronchial wall thickening. Bilateral basal ground-glass consolidations. Lung hyperlucency, favoring emphysema. Left lung calcified granuloma is benign. Pleural spaces: Thickening of the right minor fissure. There is blunting of the right costophrenic angle. There is blunting of the left costophrenic angle. There is no evidence of pneumothorax. Heart/Mediastinum: Severe cardiomegaly. Vasculature: Calcified aortic knob. Bones/joints: Chronic osseous remodeling in the right humeral head/neck. No acute skeletal abnormality or aggressive osseous lesion. Soft tissues: No acute soft tissue findings. IMPRESSION: [id number] pulmonary edema with small bilateral pleural effusions. Superimposed infectious pneumonic process should be entertained in the appropriate clinical setting.
--- NOTE | 2024-11-05 19:23 | PC.NURSE ---
report received from DERRICK Gay at this time.
[2024-11-05 19:28] LABS: Coronavirus 19, PCR Not Detected (NotDetected); Influenza A, PCR Not Detected (NotDetected); Influenza B, PCR Not Detected (NotDetected)
[2024-11-05 19:31] LABS: Albumin Level 3.3 g/dl (3.5-5.0); Chloride 91 mmol/L (98-107); Sodium 139 mmol/L (136-145)
[2024-11-05 19:32] LABS: Basophils % 0.4 % (0.1-2.0); Eosinophils # 0.3 K/mm3 (0.0-0.4); Eosinophils % 3.5 % (0.1-12.0); Hematocrit 39.2 % (37.0-47.0); Hemoglobin 12.2 g/dL (12.2-16.2); Lymphocytes # 1.6 K/mm3 (0.7-4.5); Lymphocytes % 17.7 % (10-50); Mean Corpuscular HGB Conc 31.1 g/dL (31.8-35.4); Mean Corpuscular Volume 99.5 fl (81-99); Mean Platelet Volume 9.7 fl (7.4-10.4); Monocytes # 1.2 K/mm3 (0.1-1.0); Monocytes % 13.6 % (1.7-9.3); Neutrophils # 5.8 K/mm3 (1.8-7.8); Neutrophils % 64.4 % (37.0-80.0); Platelet Count 244 K/mm3 (142-424); Potassium 3.7 mmoL/L (3.5-5.1); Red Blood Count 3.94 M/mm3 (4.20-5.40)
[2024-11-05 19:34] LABS: Alanine Aminotransferase 11 U/L (12-78); Albumin/Globulin Ratio 0.9 (1.1-1.8); Alkaline Phosphatase 116 U/L (38-126); Aspartate Amino Transferase 21 U/L (14-36); Bilirubin,Total 0.5 mg/dl (0.2-1.3); Blood Urea Nitrogen 28 mg/dl (7-17); Creatinine Clearance Estimated 29 mL/min (50-200); Estimated Glomerular Filt Rate 53 ml/min (>60); GFR (African American) 65 ML/MIN (>60); Globulin 3.7 g/dL (1.3-3.2)
[2024-11-05 19:35] LABS: Calcium 8.7 mg/dl (8.4-10.2); Glucose 76 mg/dl (74-100)
[2024-11-05 19:40] LABS: C-Reactive Protein 29.8 mg/L (0-4); D-Dimer 1.14 ug/mL (0.0-0.5)
[2024-11-05 19:40] LABS: Lipase 115 U/L (23-300)
[2024-11-05 19:43] LABS: Anion Gap 11.7 mEq/L (5-15); Carbon Dioxide 40 mmol/L (22.0-30.0)
[2024-11-05 19:49] LABS: Troponin I < 0.01 ng/ml (0.00-0.034)
[2024-11-05 19:51] LABS: NT Pro Brain Natriuretic Pep. 808 pg/mL (0-450)
[2024-11-05 19:59] LABS: Procalcitonin 0.059 ng/mL (0.0-2.0)
[2024-11-05] MEDS: ONDANSETRON 4MG/2ML VIAL 4 MG IV (20:05)
[2024-11-05] MEDS: FAMOTIDINE 20MG/2ML VIAL 20 MG IV (20:05)
--- NOTE | 2024-11-05 20:11 | ED_ITS ---
Discharge Plan Disposition Patient Disposition: Home, Self-Care Condition: Good Prescriptions Prescriptions: New ondansetron 4 mg tablet,disintegrating 4 mg PO Q8H PRN (Reason: nausea and vomiting) 4 Days Qty: 12 0RF No Action albuterol sulfate 90 mcg/actuation HFA aerosol inhaler 2 puff inhalation QIDP PRN (Reason: Shortness Of Breath) hydrocodone-acetaminophen 5-325 mg tablet 1 tab PO DAILYP PRN (Reason: pain) Qty: 120 0RF ipratropium-albuterol 0.5 mg-3 mg(2.5 mg base)/3 mL solution for nebulization 3 ml inhalation Q6H PRN (Reason: shortness of breath or wheezing) Qty: 180 3RF ondansetron HCl 4 mg tablet 4 mg PO DAILY PRN (Reason: nausea and vomiting) Qty: 30 0RF aspirin 81 MG tablet,chewable 81 mg PO DAILY Trelegy Ellipta 100-62.5-25 mcg Blister With Device 1 inh INHALATION DAILY spironolactone 25 mg Tablet 25 mg PO BID losartan 100 mg Tablet 100 mg PO DAILY bisoprolol fumarate 10 mg tablet 10 mg PO BID Rx Instructions: TAKE 1 TABLET TWICE DAILY FOR BLOOD PRESSURE escitalopram oxalate 5 mg tablet 5 mg PO DAILY Rx Instructions: TAKE 1 TABLET ONCE A DAY FOR MOOD furosemide 80 mg tablet 80 mg PO BID 30 Days Qty: 60 0RF Rx Instructions: TAKE 1 TABLET TWICE DAILY Referrals Follow up/Referrals: Fortino Jackson MD [Primary Care Provider] - See instructions Activity Restrictions/Add. Instructions Additional Instructions/Restrictions: You were evaluated in the emergency department today. At this time, your lab work is reassuring and is actually improved from your prior labs. 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 Return to the emergency department for new or worsening symptoms. Clinical Impressions Clinical Impression: Nausea Instructions Patient Instructions: DI for Nausea -- Adult Print Language Print Language: Malay Discharge ED Provider: Jerilyn Khalil General Adult HPI General Chief complaint: Shortness of Breath/Dyspnea Stated complaint: SOA, nausea Time Seen by Provider: 11/05/24 18:44 Mode of Arrival: Wheelchair Source of Information: Patient and Relative Description of Symptoms (Recalled from ER Triage Doc. by RN): pt is here today for worsening soa and 4lb fluid gain as well as nausea, pt wears 3.5 liters of O2 at baseline which is different from previosu visit. pt has upcoming appt with supervisor soldering this week. daughter at bedside History of Present Illness HPI narrative: This patient is a 79-year-old female with a history of COPD on 3.5 L nasal cannula chronically, CKD 3, CAD, obesity, paroxysmal SVT, hypertension, hyperlipidemia presented to the emergency department for evaluation with concern for nausea and dry heaves. Patient states that she always has had trouble vomiting, but anytime she is eaten for the last few days she has had nausea and dry heaves. She denies any other concerns or complaints to me. I asked about shortness of breath, but patient states that she is not short of breath now. She notes she is sometimes, but she is not currently. She denies any pain anywhere, such as chest pain or abdominal pain. No fevers, cough, congestion, or other concerns. Related Data Home Medications ?Medication ?Instructions ?Recorded ?Confirmed aspirin 81 mg chewable tablet 81 mg PO DAILY 09/30/18 10/12/24 albuterol sulfate 90 mcg/actuation 2 puff inhalation QIDP PRN 07/02/22 10/12/24 aerosol inhaler Shortness Of Breath bisoprolol fumarate 10 mg tablet 10 mg PO BID 09/29/24 10/12/24 escitalopram oxalate 5 mg tablet 5 mg PO DAILY 09/29/24 10/12/24 fluticasone fur. 100 mcg-umeclid 1 inh inhalation DAILY 09/29/24 10/12/24 62.5 mcg-vilant 25 mcg inhalat.powder (Trelegy Ellipta) losartan 100 mg tablet 100 mg PO DAILY 09/29/24 10/12/24 spironolactone 25 mg tablet 25 mg PO BID 09/29/24 10/12/24 Previous Rx's ?Medication ?Instructions ?Recorded ipratropium 0.5 mg-albuterol 3 mg 3 ml inhalation Q6H PRN shortness 02/18/23 (2.5 mg base)/3 mL nebulization of breath or wheezing #180 mL soln furosemide 80 mg tablet 80 mg PO BID 30 days #60 tabs 10/01/24 hydrocodone 5 mg-acetaminophen 325 1 tab PO DAILYP PRN pain #120 tabs 10/12/24 mg tablet ondansetron HCl 4 mg tablet 4 mg PO DAILY PRN nausea and 10/25/24 vomiting #30 tabs ondansetron 4 mg disintegrating 4 mg PO Q8H PRN nausea and 11/05/24 tablet vomiting 4 days #12 tabs Allergies Allergy/AdvReac Type Severity Reaction Status Date / Time Penicillins Allergy Hives Verified 10/12/24 15:11 Sulfa (Sulfonamide Allergy Gastrointestinal Verified 10/12/24 15:11 Antibiotics) Upset [facility] Disclaimer: The information contained in this section may have been updated after the patient was seen, as this information can be updated by other users. Medical History Nodule of right lung Exercise hypoxemia Asthma-chronic obstructive pulmonary disease overlap syndrome Screening for lung cancer Stopped smoking with greater than 30 pack year history Abnormality of lung on chest x-ray Dyspnea on exertion Dyspnea on exertion Atypical chest pain Dyspnea SOB (shortness of breath) Cardiac pacemaker in situ Palpitations CAD (coronary artery disease) CKD (chronic kidney disease) stage 3, GFR 30-59 ml/min Hyperlipidemia COPD (chronic obstructive pulmonary disease) Hypertension Surgical History History of permanent cardiac pacemaker placement Family History Other Cancer Heart attack Stroke Social History Smoking Status: Former smoker tobacco type: cigarettes packs per day: 2 second hand exposure: No alcohol intake: never substance use type: denies use current occupational status: retired and other Travel in the last 8 weeks: None household members: none housing: house current occupational exposures/hazards: No caffeine: Yes Have you lived/traveled outside [place] in past 30 days?: No Contact w/someone who lives/traveled outside [place] past 30 days?: No Exposure to someone with infectious disease in past 14 days?: No Do you have a fever (greater than 100.4 F or 38 C)?: No Have you tested positive for COVID-19: No Exposed to someone with COVID-19 in past 14 days?: No Do you have a sore throat?: No Do you have a cough?: No Do you have any weakness?: No Do you have any diarrhea?: No Are you experiencing any unusual bleeding?: No Do you have any muscle aches/pain?: No Do you have any abdominal pain?: No Are you experiencing loss of taste or smell?: No Other Medical History Have you received the Flu Vaccine for this season: No Have you received the Pneumonia Vaccine: No ROS Obtained: Yes All systems reviewed & no additional complaints except as documented Physical Exam General General appearance: alert, in no apparent distress and obese Head Head exam: atraumatic and normocephalic Eye Eye exam: Present normal appearance, PERRL and EOMI ENT ENT exam: Present normal exam, normal oropharynx, mucous membranes moist and normal external ear exam Neck Neck exam: Present normal inspection, full ROM and trachea midline; Absent tenderness Chest Chest inspection: Present normal inspection and symmetric chest wall rise; Absent tenderness Respiratory Respiratory exam: Present normal lung sounds bilaterally; Absent respiratory distress, wheezes, stridor or accessory muscle use Cardiovascular Cardiovascular exam: Present regular rate and normal rhythm Abdominal Exam Abdominal exam: Present soft; Absent distention, tenderness or guarding Extremities Exam Extremities exam: Present normal inspection, full ROM, normal capillary refill and edema (Symmetric bilateral lower extremity edema with chronic skin changes); Absent tenderness Back Exam Back exam: Present normal inspection and full ROM; Absent tenderness Neurological Exam Neurological exam: Present alert, oriented X3 and CN II-XII intact; Absent motor sensory deficit Psychiatric Psychiatric exam: Present normal affect and normal mood Skin Skin exam: Present warm and dry Medical Decision Making Medical Records Medical records reviewed: Yes I reviewed the patient's medical records. Screening: Per USPSTF and CDC recommendations, given the prevalence of disease in our region, it is our hospital?s policy to screen for HIV and viral Hepatitis for all patients aged 18 and over and those with ongoing risk factors. Konrad Inquiry Pt receiving controlled substance: No Vital Signs: 11/05/24 18:52 11/05/24 18:58 11/05/24 19:00 Temperature 97.8 F Temperature Source Oral Pulse Rate 61 61 Pulse Rate [Left Radial] 60 Respiratory Rate 20 Blood Pressure 138/58 L 127/60 Blood Pressure [Right Arm] 138/58 L Blood Pressure Mean [Right Arm] 84 02 Sat by Pulse Oximetry 92 L 92 L 95 Oxygen Delivery Method Nasal Cannula Room Air Oxygen Flow Rate (LPM) 3.5 11/05/24 19:10 11/05/24 19:20 11/05/24 19:30 Temperature Temperature Source Pulse Rate 60 61 60 Pulse Rate [Left Radial] Respiratory Rate 22 Blood Pressure 119/63 112/57 L 108/61 L Blood Pressure [Right Arm] Blood Pressure Mean [Right Arm] 02 Sat by Pulse Oximetry 96 97 95 Oxygen Delivery Method Room Air Room Air Room Air Oxygen Flow Rate (LPM) 11/05/24 19:40 11/05/24 19:50 11/05/24 20:10 Temperature Temperature Source Pulse Rate 63 61 62 Pulse Rate [Left Radial] Respiratory Rate 25 H 25 H 24 Blood Pressure 113/57 L 111/47 L 113/57 L Blood Pressure [Right Arm] Blood Pressure Mean [Right Arm] 02 Sat by Pulse Oximetry 94 L 94 L 93 L Oxygen Delivery Method Room Air Room Air Room Air Oxygen Flow Rate (LPM) 11/05/24 20:20 11/05/24 20:30 11/05/24 20:40 Temperature Temperature Source Pulse Rate 60 60 60 Pulse Rate [Left Radial] Respiratory Rate 21 25 H 16 Blood Pressure 108/41 L 115/60 124/69 Blood Pressure [Right Arm] Blood Pressure Mean [Right Arm] 02 Sat by Pulse Oximetry 95 94 L 95 Oxygen Delivery Method Oxygen Flow Rate (LPM) 11/05/24 20:50 11/05/24 21:01 11/05/24 21:12 Temperature Temperature Source Pulse Rate 60 60 60 Pulse Rate [Left Radial] Respiratory Rate 20 23 22 Blood Pressure 117/62 104/71 L 77/41 L Blood Pressure [Right Arm] Blood Pressure Mean [Right Arm] 02 Sat by Pulse Oximetry 96 96 97 Oxygen Delivery Method Oxygen Flow Rate (LPM) 11/05/24 21:18 11/05/24 21:20 11/05/24 21:35 Temperature 98.4 F Temperature Source Pulse Rate 60 63 60 Pulse Rate [Left Radial] Respiratory Rate 30 H 32 H 24 Blood Pressure 113/48 L 111/47 L 107/45 L Blood Pressure [Right Arm] Blood Pressure Mean [Right Arm] 02 Sat by Pulse Oximetry 99 97 Oxygen Delivery Method Room Air Nasal Cannula Oxygen Flow Rate (LPM) 3 Lab Data Lab results reviewed: Yes I reviewed the patient's lab results. Lab Results 11/05/24 19:00: NT-Pro-B Natriuret Pep 808 H, Lipase 115, SARS-CoV-2 (PCR) Not detected, Influenza A Untype (PCR) Not detected, Influenza Type B (PCR) Not detected 11/05/24 19:08: WBC 9.0, RBC 3.94 L, Hgb 12.2, Hct 39.2, MCV 99.5 H, MCH 31.0, M CHC 31.1 L, RDW 13.0, Plt Count 244, MPV 9.7, Neut % (Auto) 64.4, Lymph % (Auto) 17.7, Park % (Auto) 13.6 H, Eos % (Auto) 3.5, Baso % (Auto) 0.4, Neut # (Auto) 5.8, Lymph # (Auto) 1.6, Park # (Auto) 1.2 H, Eos # (Auto) 0.3, Baso # (Auto) 0.0, D-Dimer 1.14 H, Sodium 139, Potassium 3.7, Chloride 91 L, Carbon Dioxide 40 H, Anion Gap 11.7, BUN 28 H, Creatinine 1.00, Estimated Creat Clear 29, E stimated GFR 53 L, Est GFR ( Amer) 65, Glucose 76, Calcium 8.7, Total Bilirubin 0.5, AST 21, ALT 11 L, Alkaline Phosphatase 116, Troponin I < 0.01, C- Reactive Protein 29.8 H, Total Protein 7.0, Albumin 3.3 L, Globulin 3.7 H, A lbumin/Globulin Ratio 0.9 L, Procalcitonin 0.059 11/05/24 19:10: VBG pH 7.34, VBG pCO2 77.5 H, VBG pO2 47.1 H, VBG HCO3 41.1 H, V BG Total CO2 43.4 H, VBG O2 Saturation 81.1 H, VBG Base Excess 15.3 H, VBG Lactic Acid 1.7 11/05/24 20:06: Urine Color Yellow, Urine Appearance Clear, Urine pH 6.0, Ur Specific Ho[place] 1.010, Urine Protein Negative, Urine Glucose (UA) Negative, Urine Ketones Negative, Urine Blood Negative, Urine Nitrate Negative, Urine Bilirubin Negative, Urine Urobilinogen 0.2, Ur Leukocyte Esterase Negative, Urine RBC None, Urine WBC 3-5, Ur Squamous Epith Cells 5-10, Urine Bacteria Trace 11/05/24 19:08 11/05/24 19:08 Orders (Tests/Meds): ED MEDICATIONS Discontinued Medications Generic Name Dose Route Start Last Admin Trade Name Freq PRN Reason Stop Dose Admin Famotidine 20 mg 11/05/24 19:27 11/05/24 20:05 Famotidine 20mg/2ml Vial IV 11/05/24 19:28 20 mg ONCE ONE Administration Ondansetron HCl 4 mg 11/05/24 19:27 11/05/24 20:05 Ondansetron 4mg/2ml Vial IV 11/05/24 19:28 4 mg ONCE ONE Administration Sodium Chloride 8 ml 11/05/24 19:27 Sodium Chloride 0.9% 10ml Vial IV 12/05/24 19:26 NEEDED PRN dilute pepcid ORDERS Category Date Time Status CXR --portable [XR chest portable] Stat Exams 11/05/24 19:21 Completed BNP [NT Pro Brain Natriuretic Pep.] Stat Lab 11/05/24 19:00 Completed CBC w/Auto Diff [Complete Blood Count Auto Diff] Stat Lab 11/05/24 19:08 Completed CMP [Comprehensive Metabolic Panel] Stat Lab 11/05/24 19:08 Completed CRP [C-Reactive Protein] Stat Lab 11/05/24 19:08 Completed D-Dimer Stat Lab 11/05/24 19:08 Completed Lipase Stat Lab 11/05/24 19:00 Completed Procalcitonin Stat Lab 11/05/24 19:08 Completed Rapid PCR Covid and Flu A/B Stat Lab 11/05/24 19:00 Completed Trop I [Troponin I] Stat Lab 11/05/24 19:08 Completed UA [Urinalysis and Microscopic] Stat Lab 11/05/24 20:06 Completed Blood Culture Stat Micro 11/05/24 18:58 Received VBG [Venous Blood Gas] Stat RT 11/05/24 19:10 Completed ECG Data Tracing #1: I reviewed this ECG and interpreted as documented below: Atrially paced at a ventricular rate of [address]/T wave changes without STEMI. ECG initial impression date: 11/05/24 ECG initial impression time: 19:15 Medical Decision Narrative: In summary, this patient is a 79-year-old female presenting to the Emergency Department for evaluation of nausea and dry heaves. Differential diagnoses considered include but are not limited to gastroenteritis, gastritis, gastroparesis, pyelonephritis, ureterolithiasis, urinary tract infection, ACS, dysrhythmia, ANTHONY. Ruling out the most morbid conditions drove assessment. It should be noted patient's history includes obesity, chronic respiratory failure in the setting of COPD, CKD 3, hypertension, hyperlipidemia which likely are not at goal therapy. This complicates all aspects of care by increasing patient's risk for morbidity. I reviewed patient's past medical records and noted prior recent admissions for CHF exacerbation, ANTHONY on CKD, acute on chronic respiratory failure On exam, the patient is sitting upright in no acute distress. She denies any worsening of shortness of breath at this time to me. She denies any cough, congestion, chest pain, abdominal pain, or other concerns. Her only complaint to me is nausea and dry heaves. Workup included CBC, CMP, lipase, troponin, VBG, lactic, BNP, chest x-ray, EKG, urinalysis. She was given IV Zofran and Pepcid for symptomatic improvement. EKG obtained is reassuring. She was appropriately paced. I independently interpreted chest x-ray prior to the radiologist read and noted significant interval change noted from prior chest x- ray, she chronically has patchy opacities and lower lobe consolidation. Please see their read for final interpretation. Labs were obtained that demonstrated reassuring CBC without significant changes from prior, no significant leukocytosis to suggest infection. VBG demonstrates a compensated chronic respiratory acidosis. Chemistry is reassuring and actually improved from prior labs with improved kidney function, improved BNP. She has no significant transaminitis or elevated lipase. Urinalysis obtained is not concerning for infection but is slightly contaminated with squamous cells. Culture was sent to be safe.. On reassessment, patient is sitting upright in no acute distress. She denies any concerns or complaints on my assessment, she is able to tolerate oral intake without difficulty. She denies any chest pain, shortness of breath, or other concern. D-dimer was accidentally obtained after lab orders obtained during triage, but I am not concerned for PE based on presentation or clinical exam. Ultimately I feel the patient is appropriate for discharge home with instructions for close follow-up with primary care and cardiology, which she already has next week. I do not feel she has acute life-threatening pathology that requires admission to the hospital given that she has no concerns or complaints except for some nausea that has not resolved. Strict return precautions were given. Critical Care Critical Care Time Critical Care Time: No
[2024-11-05 20:12] LABS: Microscopic, Urine URINE MICROSCOPIC (MICROSCOPIC)
[2024-11-05 20:19] LABS: Appearance,Urine CLEAR (Clear); Bilirubin,Urine Negative (Negative); Blood, Urine Negative (Negative); Color,Urine YELLOW (Yellow); Glucose,Urine (UA) Negative (Negative); Ketones,Urine Negative (Negative); Leukocyte Esterase,Urine Negative (Negative); Nitrate,Urine Negative (Negative); Protein,Urine Negative (Negative); Urobilinogen,Urine 0.2 EU/dl (0.2)
[2024-11-05 20:41] LABS: Bacteria,Urine Trace /lpf
== END 2024-11-05 21:46 | disposition home or self-care (01) ==
PROVIDERS: Emergency Provider Emergency Medicine; PCP Internal Medicine
DX: R11.0 Nausea (principal); R06.02 Shortness of breath
CPT/HCPCS: 71045; 80053; 81001; 82803; 83690; 83880; 84145; 84484; 85025; 85378; 86140; 87040; 87636; 93005; 96374; 96375; 99284; J2405; S0028

== ENCOUNTER 2024-11-22 06:59 | Emergency (ER) | payer MEDICARE, SELFPAY ==
[2024-11-22 07:12] VITALS: BP 143/74; PULSE 66; O2SAT 98
[2024-11-22 07:16] VITALS: BP 143/74; PULSE 67; RESP 22; TEMP 36.8; O2SAT 91; BMI 41.3
--- NOTE | 2024-11-22 07:31 | XR_ITS ---
FINAL REPORT CLINICAL HISTORY: Shortness of breath, h/o CHF COMPARISON: 11/05/2024 FINDINGS: There is minimal worsening of pulmonary markings in the lung bases favored to represent edema over pneumonia. There is no significant effusion. Mediastinum is unremarkable. A left-sided pacer is present. Heart size is enlarged but stable. IMPRESSION: Mild increased pulmonary markings, favor edema. Reviewed, Interpreted and Dictated by Kristopher Barrera MD Transcribed by Luba Green Authenticated and [facility]
[2024-11-22 07:43] LABS: VBG Base Excess 13.8 mmol/L (-2.4-2.3); VBG HCO3 39.6 mmol/L (23-30); VBG Oxygen Saturation 83.1 % (50-70); VBG PH 7.33 mmol/L (7.31-7.41); VBG PO2 50.6 mmol/L (28-40)
[2024-11-22 07:43] LABS: Albumin Level 3.4 g/dl (3.5-5.0); Chloride 91 mmol/L (98-107); Sodium 138 mmol/L (136-145)
[2024-11-22 07:45] LABS: VBG PCO2 76.2 mmol/L (35-51)
[2024-11-22 07:45] LABS: Blood Urea Nitrogen 25 mg/dl (7-17); Creatinine Clearance Estimated 26 mL/min (50-200); Estimated Glomerular Filt Rate 43 ml/min (>60); GFR (African American) 52 ML/MIN (>60)
--- NOTE | 2024-11-22 07:45 | PC.NURSE ---
MD @ bedside doing pelvic
[2024-11-22 07:46] LABS: Alanine Aminotransferase 11 U/L (12-78); Albumin/Globulin Ratio 0.8 (1.1-1.8); Alkaline Phosphatase 108 U/L (38-126); Aspartate Amino Transferase 25 U/L (14-36); Bilirubin,Total 0.6 mg/dl (0.2-1.3); Calcium 8.5 mg/dl (8.4-10.2); Globulin 4.5 g/dL (1.3-3.2); Glucose 104 mg/dl (74-100); Total Protein,Serum 7.9 g/dl (6.3-8.2)
--- NOTE | 2024-11-22 07:46 | ED_ITS ---
Discharge Plan Disposition Patient Disposition: Home, Self-Care Condition: Good Prescriptions Prescriptions: New hydrocortisone acetate [Anusol-HC] 25 mg suppository 25 mg [place] HS 24 Days Qty: 24 0RF bumetanide 1 mg tablet 1 mg PO DAILY 7 Days Qty: 7 0RF No Action albuterol sulfate 90 mcg/actuation HFA aerosol inhaler 2 puff inhalation QIDP PRN (Reason: Shortness Of Breath) hydrocodone-acetaminophen 5-325 mg tablet 1 tab PO DAILYP PRN (Reason: pain) Qty: 120 0RF bumetanide 2 mg tablet 2 mg PO BID Qty: 60 3RF spironolactone 50 mg tablet 50 mg PO BID Qty: 60 3RF ipratropium-albuterol 0.5 mg-3 mg(2.5 mg base)/3 mL solution for nebulization 3 ml inhalation Q6H PRN (Reason: shortness of breath or wheezing) Qty: 180 3RF ondansetron HCl 4 mg tablet 4 mg PO DAILY PRN (Reason: nausea and vomiting) Qty: 30 0RF aspirin 81 MG tablet,chewable 81 mg PO DAILY losartan 100 mg Tablet 100 mg PO DAILY bisoprolol fumarate 10 mg tablet 10 mg PO BID Rx Instructions: TAKE 1 TABLET TWICE DAILY FOR BLOOD PRESSURE escitalopram oxalate 5 mg tablet 5 mg PO DAILY Rx Instructions: TAKE 1 TABLET ONCE A DAY FOR MOOD ondansetron 4 mg tablet,disintegrating 4 mg PO Q8H PRN (Reason: nausea and vomiting) 4 Days Qty: 12 0RF Referrals Follow up/Referrals: Fortino Jackson MD [Primary Care Provider] - See instructions Nicolas Urena II, MD [Staff Physician] - See instructions Sam Andrews MD [Staff Physician] - See instructions Patrick Stephenson MD [Staff Physician] - See instructions Activity Restrictions/Add. Instructions Additional Instructions/Restrictions: You were evaluated in the emergency department today. At this time, I feel the bleeding is likely from hemorrhoids. There does not appear to be any active bleeding at this time. Please grain picker your prescription for suppositories and use nightly as prescribed. Follow-up closely with GI. For your swelling and weight gain, I am prescribing extra bumex for you to take for one week. Please follow up closely with cardiology as well as your primary care provider for these things. Clinical Impressions Clinical Impression: BRBPR (bright red blood per rectum), CHF (congestive heart failure), Hemorrhoid Instructions Patient Instructions: DI for Hemorrhoids, DI for Rectal Bleeding Print Language Print Language: [place] Discharge ED Provider: Jerilyn Khalil General Adult HPI General Chief complaint: Shortness of Breath/Dyspnea Stated complaint: Rectal bleeding over 12hrs Time Seen by Provider: 11/22/24 07:04 Mode of Arrival: Wheelchair Source of Information: Patient and Relative Description of Symptoms (Recalled from ER Triage Doc. by RN): rectal bleeding since yesterday. has hemorrhoids. increasing short of breath. 3-4+ edema to BLE. has CHF. gained 15 lbs in a month History of Present Illness HPI narrative: This patient is a 79-year-old female with a history of COPD on 3.5-4 L nasal cannula chronically, CKD 3, CAD, obesity, paroxysmal SVT, hypertension, hyperlipidemia presenting to the emergency department for evaluation with concern for bright red blood per rectum. Patient states that it started yesterday and she has noted bright red blood per rectum 5-7 times when going to the bathroom. She does note that she has a history of hemorrhoids. She denies any concerns it could be vaginal bleeding, denies any blood in her urine. She denies any fevers, chest pain, abdominal pain, nausea, vomiting, or other changes in bowel movements. She does note she is chronically short of breath in the setting of heart failure. Her legs are always swollen, but she reports a 15 pound weight gain in the last month. Patient does take aspirin but no blood thinners. Related Data Home Medications ?Medication ?Instructions ?Recorded ?Confirmed aspirin 81 mg chewable tablet 81 mg PO DAILY 09/30/18 11/22/24 albuterol sulfate 90 mcg/actuation 2 puff inhalation QIDP PRN 07/02/22 11/22/24 aerosol inhaler Shortness Of Breath bisoprolol fumarate 10 mg tablet 10 mg PO BID 09/29/24 11/22/24 escitalopram oxalate 5 mg tablet 5 mg PO DAILY 09/29/24 11/22/24 losartan 100 mg tablet 100 mg PO DAILY 09/29/24 11/22/24 Previous Rx's ?Medication ?Instructions ?Recorded ipratropium 0.5 mg-albuterol 3 mg 3 ml inhalation Q6H PRN shortness 02/18/23 (2.5 mg base)/3 mL nebulization of breath or wheezing #180 mL soln hydrocodone 5 mg-acetaminophen 325 1 tab PO DAILYP PRN pain #120 tabs 10/12/24 mg tablet ondansetron HCl 4 mg tablet 4 mg PO DAILY PRN nausea and 10/25/24 vomiting #30 tabs ondansetron 4 mg disintegrating 4 mg PO Q8H PRN nausea and 11/05/24 tablet vomiting 4 days #12 tabs bumetanide 2 mg tablet 2 mg PO BID #60 tabs 11/09/24 spironolactone 50 mg tablet 50 mg PO BID #60 tabs 11/09/24 bumetanide 1 mg tablet 1 mg PO DAILY 1 week #7 tabs 11/22/24 hydrocortisone acetate 25 mg 25 mg [place] HS 24 days #24 ea 11/22/24 rectal suppository (Anusol-HC) Allergies Allergy/AdvReac Type Severity Reaction Status Date / Time Penicillins Allergy Hives Verified 11/22/24 07:41 Sulfa (Sulfonamide Allergy Gastrointestinal Verified 11/22/24 07:41 Antibiotics) Upset [facility] Disclaimer: The information contained in this section may have been updated after the patient was seen, as this information can be updated by other users. Medical History Dyspnea (HFpEF) heart failure with preserved ejection fraction Prerenal azotemia COPD with acute exacerbation Acute on chronic diastolic (congestive) heart failure Alkalosis, metabolic ANTHONY (acute kidney injury) Hypervolemia Acute on chronic respiratory failure with hypoxia and hypercapnia Closed right humeral fracture Edema Acute leg pain Atypical pneumonia Bronchitis Cardiac arrhythmia Hypokalemia Ex-smoker for more than 1 year Lightheadedness Chest pressure Nodule of right lung Exercise hypoxemia Asthma-chronic obstructive pulmonary disease overlap syndrome Screening for lung cancer Stopped smoking with greater than 30 pack year history Abnormality of lung on chest x-ray Dyspnea on exertion Dyspnea on exertion Atypical chest pain SOB (shortness of breath) Cardiac pacemaker in situ Palpitations CAD (coronary artery disease) CKD (chronic kidney disease) stage 3, GFR 30-59 ml/min Hyperlipidemia COPD (chronic obstructive pulmonary disease) Hypertension Surgical History History of permanent cardiac pacemaker placement Family History Other Cancer Heart attack Stroke Social History Smoking Status: Never smoker second hand exposure: No alcohol intake: never substance use type: denies use current occupational status: retired and other Travel in the last 8 weeks: None household members: none housing: house current occupational exposures/hazards: No caffeine: Yes Have you lived/traveled outside [place] in past 30 days?: No Contact w/someone who lives/traveled outside [place] past 30 days?: No Exposure to someone with infectious disease in past 14 days?: No Do you have a fever (greater than 100.4 F or 38 C)?: No Have you tested positive for COVID-19: No Exposed to someone with COVID-19 in past 14 days?: No Do you have a sore throat?: No Do you have a cough?: No Do you have any weakness?: No Do you have any diarrhea?: No Are you experiencing any unusual bleeding?: Yes Do you have any muscle aches/pain?: No Do you have any abdominal pain?: No Are you experiencing loss of taste or smell?: No Other Medical History Have you received the Flu Vaccine for this season: No Have you received the Pneumonia Vaccine: No ROS Obtained: Yes All systems reviewed & no additional complaints except as documented Physical Exam General General appearance: alert, in no apparent distress and obese Head Head exam: atraumatic and normocephalic Eye Eye exam: Present normal appearance, PERRL and EOMI ENT ENT exam: Present normal exam, normal oropharynx, mucous membranes moist and normal external ear exam Neck Neck exam: Present normal inspection, full ROM and trachea midline; Absent tenderness Chest Chest inspection: Present normal inspection and symmetric chest wall rise; Absent tenderness Respiratory Respiratory exam: Present normal lung sounds bilaterally; Absent respiratory distress, wheezes, stridor or accessory muscle use Cardiovascular Cardiovascular exam: Present regular rate and normal rhythm Abdominal Exam Abdominal exam: Present soft; Absent distention, tenderness or guarding Rectal Exam Rectal exam: Present hemorrhoids comment: Hemorrhoids noted with some blood on her underwear and around her rectum. Digital rectal exam demonstrates light brown stool with no melena, no active bleeding at this time. External exam: Present other (Vaginal atrophy) Speculum exam: Absent vaginal discharge or vaginal bleeding Extremities Exam Extremities exam: Present full ROM, normal capillary refill and edema (3+ bilateral lower extremity pitting edema with chronic skin changes); Absent tenderness Back Exam Back exam: Present normal inspection and full ROM; Absent tenderness Neurological Exam Neurological exam: Present alert, oriented X3 and CN II-XII intact; Absent motor sensory deficit Psychiatric Psychiatric exam: Present normal affect and normal mood Skin Skin exam: Present warm and dry Medical Decision Making Medical Records Medical records reviewed: Yes I reviewed the patient's medical records. Screening: Per USPSTF and CDC recommendations, given the prevalence of disease in our region, it is our hospital?s policy to screen for HIV and viral Hepatitis for all patients aged 18 and over and those with ongoing risk factors. Konrad Inquiry Pt receiving controlled substance: No Vital Signs: 11/22/24 07:12 11/22/24 07:16 11/22/24 09:05 Temperature 98.3 F 98.3 F Temperature Source Oral Oral Pulse Rate 66 67 Pulse Rate [Right] 67 Respiratory Rate 22 22 Blood Pressure 143/74 H 143/74 H Blood Pressure [Right Arm] 143/74 H Blood Pressure Mean [Right Arm] 97 Blood Pressure Source Automatic Cuff Blood Pressure Position Sitting 02 Sat by Pulse Oximetry 98 91 L Oxygen Delivery Method Nasal Cannula Nasal Cannula Nasal Cannula Oxygen Flow Rate (LPM) 4 4 Lab Data Lab results reviewed: Yes I reviewed the patient's lab results. Lab Results 11/22/24 07:20: WBC 8.0, RBC 3.87 L, Hgb 12.1 L, Hct 38.9, MCV 100.5 H, MCH 31.3 H, MCHC 31.1 L, RDW 13.2, Plt Count 235, MPV 10.3, Neut % (Auto) 60.9, Lymph % (Auto) 20.5, [place] % (Auto) 12.6 H, Eos % (Auto) 5.0, Baso % (Auto) 0.6, Neut # (Auto) 4.9, Lymph # (Auto) 1.7, [place] # (Auto) 1.0, Eos # (Auto) 0.4, Baso # (Auto) 0.1, PT 10.3, INR 0.91, APTT 26.0, Sodium 138, Potassium 3.7, Chloride 91 L, Carbon Dioxide 41 H*, Anion Gap 9.7, BUN 25 H, Creatinine 1.20 H, Estimated Creat Clear 26, Estimated GFR 43 L, Est GFR ( Amer) 52 L, Glucose 104 H, Calcium 8.5, Total Bilirubin 0.6, AST 25, ALT 11 L, Alkaline Phosphatase 108, Troponin I < 0.01, NT-Pro-B Natriuret Pep 1090 H, Total Protein 7.9, Albumin 3.4 L, Globulin 4.5 H, Albumin/Globulin Ratio 0.8 L 11/22/24 07:32: VBG pH 7.33, VBG pCO2 76.2 H, VBG pO2 50.6 H, VBG HCO3 39.6 H, V BG Total CO2 42.0 H, VBG O2 Saturation 83.1 H, VBG Base Excess 13.8 H, VBG Lactic Acid 2.0 11/22/24 07:20 11/22/24 07:20 Orders (Tests/Meds): ORDERS Category Date Time Status CXR --portable [XR chest portable] Stat Exams 11/22/24 07:31 Completed BNP [NT Pro Brain Natriuretic Pep.] Stat Lab 11/22/24 07:20 Completed CBC w/Auto Diff [Complete Blood Count Auto Diff] Stat Lab 11/22/24 07:20 Completed CMP [Comprehensive Metabolic Panel] Stat Lab 11/22/24 07:20 Completed PT INR [Prothrombin Time INR] Stat Lab 11/22/24 07:20 Completed PTT [Activated Partial Thrombo Time] Stat Lab 11/22/24 07:20 Completed Trop I [Troponin I] Stat Lab 11/22/24 07:20 Completed Troponin I Q3H Lab 11/22/24 10:45 Ordered Troponin I Q3H Lab 11/22/24 13:45 Ordered VBG [Venous Blood Gas] Stat RT 11/22/24 07:32 Completed Medical Decision Narrative: In summary, this patient is a 79-year-old female presenting to the Emergency Department for evaluation of rectal bleeding. She also notes chronic shortness of breath in the setting of CHF and COPD and unintentional weight gain. differential diagnoses considered include but are not limited to hemorrhoids, symptomatic anemia, diverticular bleed, upper GI bleed, CHF exacerbation. Ruling out the most morbid conditions drove assessment. It should be noted patient's history includes obesity, CHF, COPD, CKD, CAD, hypertension, hyperlipidemia which likely are not at goal therapy. This complicates all aspects of care by increasing patient's risk for morbidity. I reviewed patient's past medical records and noted recent admission for CHF exacerbation, evaluation in the ED for chronic nausea the end of October. On exam, the patient is obese with symmetric lower extremity edema, which is chronic for her, but she does note unintentional weight gain of 15 pounds over the last month. She is stable on her home 4 L nasal cannula with no increased work of breathing. Patient complains of chronic shortness of breath, but nothing new or acute at this time according to her. The only concern that she acutely has is the bright red blood per rectum. On exam, she has no vaginal bleeding, no melena. She does have hemorrhoids with some dried blood around her anus but I do not see any active evidence of bleeding. No blood on my glove on digital rectal exam. Abdominal exam is completely benign and she denies any fevers, abdominal pain, nausea, or vomiting. At this time based on history and exam, favor hemorrhoidal bleeding. Workup included CBC, CMP, coags, BNP, troponin, chest x-ray, EKG. I independently interpreted chest x-ray prior to the radiologist read and noted stable chronic disease without new acute findings. Please see their read for final interpretation. Labs were obtained that demonstrated reassuring CBC with hemoglobin of 12.1, which is not significantly changed from recent labs. No significant leukocytosis. VBG demonstrates a chronic compensated respiratory acidosis. Chemistry demonstrates creatinine is around her recent baseline 1.2. CO2 is chronically elevated in the setting of compensated COPD. BNP is slightly elevated from recent evaluation, but not as high as her previous admission. Troponin is negative, EKG is reassuring. On multiple subsequent reassessments, I do not appreciate any active bleeding. Patient went to the bathroom without any recurrence of active bleeding. I feel that she likely has hemorrhoidal bleeding, and there is no indication currently for emergent intervention. It appears bleeding is stopped. I feel she is appropriate for discharge with very close follow-up with GI. I prescribed her Anusol. For her weight gain and mildly elevated BNP in the setting of CHF, I am prescribing an additional 1 mg of Bumex for 1 week and I advised that she follow-up very closely with cardiology as well as primary care for further assessment. I considered obtaining imaging such as CT abdomen and pelvis, however based on reassuring history and exam I do not feel that it is indicated as it would likely not climate change risk assessor. Patient was discharged with very strict return precautions and instructions for close follow-up as an outpatient. I did contact GI office and let them know that I would like for patient to be scheduled soon for follow-up. Critical Care Critical Care Time Critical Care Time: No
[2024-11-22 07:52] LABS: Basophils # 0.1 K/mm3 (0-0.2); Basophils % 0.6 % (0.1-2.0); Eosinophils # 0.4 K/mm3 (0.0-0.4); Hematocrit 38.9 % (37.0-47.0); Hemoglobin 12.1 g/dL (12.2-16.2); Lymphocytes # 1.7 K/mm3 (0.7-4.5); Lymphocytes % 20.5 % (10-50); Mean Corpuscular HGB Conc 31.1 g/dL (31.8-35.4); Mean Corpuscular Hemoglobin 31.3 pg (27.0-31.2); Mean Corpuscular Volume 100.5 fl (81-99); Mean Platelet Volume 10.3 fl (7.4-10.4); Monocytes % 12.6 % (1.7-9.3); Neutrophils # 4.9 K/mm3 (1.8-7.8); Neutrophils % 60.9 % (37.0-80.0); Platelet Count 235 K/mm3 (142-424); Red Blood Count 3.87 M/mm3 (4.20-5.40); Red Cell Distribution Width 13.2 % (11.5-17.5)
[2024-11-22 07:56] LABS: NT Pro Brain Natriuretic Pep. 1090 pg/mL (0-450)
[2024-11-22 07:57] LABS: Carbon Dioxide 41 mmol/L (22.0-30.0)
[2024-11-22 08:00] LABS: INR 0.91 (0.9-1.1); Prothrombin Time 10.3 seconds (10.1-12.5)
[2024-11-22 08:03] LABS: Troponin I < 0.01 ng/ml (0.00-0.034)
[2024-11-22 08:09] LABS: Anion Gap 9.7 mEq/L (5-15); Potassium 3.7 mmoL/L (3.5-5.1)
--- NOTE | 2024-11-22 08:27 | ECG_ITS ---
APPROVED REPORT Exam: Resting ECG HR:65 bpm ECG Measurements Heart Rate 65 AXES TN 154 P 139 QRSd 98 QRS 52 QT 396 T -12 QTc 408 Conclusion ELECTRONIC ATRIAL PACEMAKER INCOMPLETE RIGHT BUNDLE BRANCH BLOCK [90+ ms QRS DURATION, TERMINAL R IN V1/V2, 40+ ms S IN I/aVL/V4/V5/V6] NONSPECIFIC T-WAVE ABNORMALITY Non-STEMI Electronically signed by : MARY WOOD, 11/23/2024 06:23:32
--- NOTE | 2024-11-22 08:54 | PC.NURSE ---
DR COTE AT BEDSIDE TO UPDATE
[2024-11-22 09:05] VITALS: BP 143/74; PULSE 67; RESP 22; TEMP 36.8; O2SAT 98
== END 2024-11-22 09:20 | disposition home or self-care (01) ==
PROVIDERS: Emergency Provider Emergency Medicine; PCP Internal Medicine
DX: K64.9 Unspecified hemorrhoids (principal); I50.9 Heart failure, unspecified; R06.02 Shortness of breath; K62.5 Hemorrhage of anus and rectum; R60.0 Localized edema; R63.5 Abnormal weight gain; Z79.82 Long term (current) use of aspirin
CPT/HCPCS: 71045; 80053; 82803; 83880; 84484; 85025; 85610; 85730; 93005; 99284